=== PATIENT | male | born 1960 | race Caucasian/White ===

== ENCOUNTER 2019-08-08 07:59 | Outpatient (CLI) | payer BC, SELFPAY ==
--- NOTE | ~2019-08-08 | US_ITS ---
EXAMINATION: US right upper quadrant DATE: 08/08/2019 08:39 INDICATION: Right upper quadrant pain TECHNIQUE: Multiple grayscale and Doppler ultrasound images of the abdomen were obtained. COMPARISON: None available FINDINGS: Bowel gas obscures visualization of the pancreas. The visualized portions of the pancreas a re unremarkable. The liver is normal with normal echogenicity and echotexture. No surface nodularity. Normal hepatopetal flow in the main portal vein. Stones are present in the nondistended gallbladder. There is no pericholecystic fluid or gallbladder wall thickening. The normal common bile duct measur es 6 mm. There was no sonographic Ann sign. IMPRESSION: 1. Cholelithiasis without additional findings of cholecystitis. Reviewed, dictated and finalized at location A.
== END 2019-08-08 08:00 | disposition home or self-care (01) ==
PROVIDERS: PCP Physician Assistant; Visit Provider Physician Assistant
DX: R10.11 Right upper quadrant pain (principal); K80.20 Calculus of gallbladder without cholecystitis without obstruction
CPT/HCPCS: 76705

== ENCOUNTER 2019-10-16 06:33 | Outpatient (CLI) | payer BC, SELFPAY ==
--- NOTE | ~2019-10-16 | NM_ITS ---
EXAMINATION: NM hepatobiliary w pharm DATE: 10/16/2019 08:19 INDICATION: Vomiting. COMPARISON: Ultrasound 08/08/2019 TECHNIQUE: 5.1 mCi Tc-99m mebrofenin (Choletec) was administered intravenously. Scintigraphic images of the abdomen were obtained for one hour. Then, 2 mcg sincalide (Kinevac) IV was administered, and imaging was continued for 30 minutes. FINDINGS: There is normal clearance of radiotracer from the blood pool. There is homogeneous tracer u ptake by the liver. Activity progresses to the bowel and gallbladder. Gallbladder ejection fraction (GBEF) was 38%. Note that most patients with gallbladder dysfunction have GBEF < 35%, which overlaps with the broad normal range of 10-90%. IMPRESSION: 1. Normal hepatobiliary scintigraphy. Reviewed, dictated and finalized at location B.
== END 2019-10-16 06:34 | disposition home or self-care (01) ==
LOC: ANHIMG 06:34
PROVIDERS: PCP Family Medicine; Visit Provider Physician Assistant
DX: R10.11 Right upper quadrant pain (principal); R11.10 Vomiting, unspecified
CPT/HCPCS: 78227; A9537; J2805

== ENCOUNTER 2020-02-08 01:41 | Outpatient (CLI) | payer BC, SELFPAY ==
[2020-02-08 18:59] LABS: SARS-CoV-2 RNA PCR Negative
== END 2020-02-08 01:42 | disposition home or self-care (01) ==
LOC: ANHCOVIDDT 01:41
PROVIDERS: Visit Provider Internal Medicine Gastroenterology
DX: Z01.818 Encounter for other preprocedural examination (principal); Z20.828 Contact with and (suspected) exposure to other viral communicable diseases
CPT/HCPCS: 87635; C9803; U0003

== ENCOUNTER → 2020-02-12 14:10 | Day surgery (SDC) | payer BC, SELFPAY ==
[2020-02-05 14:36] VITALS: BMI 29.6
[2020-02-12 06:17] VITALS: BP 128/85; PULSE 103; RESP 18; TEMP 36.4; O2SAT 100; BMI 29.2
[2020-02-12] MEDS: LACTATED RINGERS 1,000 ML 150 ML IV CONT (06:34)
--- NOTE | 2020-02-12 07:18 | WPDANESEPPF ---
Anes - Initial Pre Proc Eval Procedure: Operation Date: 02/12/20 07:30 Proposed Procedures p Esophagogastroduodenoscopy&Screen Colon - Apolinar Hines MD Date/Time: 02/12/20 07:18 Surgeon: Apolinar Hines MD Pre Op Diagnosis: Rivera's Esophagus,Neoplasm Screening Patient Data Age: 59 Gender: M Height: 6 ft 1 in Weight: 100.5 kg Last Vital Signs Temp 97.5 F L 02/12/20 06:17 Pulse 103 H 02/12/20 06:17 Resp 18 02/12/20 06:17 BP 128/85 02/12/20 06:17 Pulse Ox 100 02/12/20 06:17 Allergies Allergy/AdvReac Type Severity Reaction Status Date / Time sildenafil Allergy Intermediate Unknown Verified 02/12/20 06:16 tadalafil Allergy Intermediate Unknown Verified 02/12/20 06:16 vardenafil Allergy Intermediate Unknown Verified 02/12/20 06:16 azithromycin Allergy Unknown Hallucinati Verified 02/12/20 06:16 ng Home Medications Medication Instructions Recorded Confirmed Type aspirin 81 mg tablet,delayed 81 mg PO DAILY 01/07/19 02/05/20 History release pantoprazole 40 mg tablet,delayed 40 mg PO QAM 01/07/19 02/05/20 History release apixaban 5 mg tablet 5 mg PO BID #180 tablet 06/24/19 02/05/20 Rx gabapentin 300 mg capsule 300 mg PO BID #180 cap 06/24/19 02/05/20 Rx metoprolol succinate 100 mg 100 mg PO DAILY #90 tablet 07/19/19 02/05/20 Rx tablet,extended release 24 hr triamcinolone acetonide 0.5 % 1 applic TOPICAL BID #30 gm 08/08/19 02/05/20 Rx topical ointment alprazolam 0.25 mg tablet See Rx Instructions PO BID PRN #30 12/13/19 02/05/20 Rx tablet sodium,potassium,mag sulfates 17.5 354 ml PO .COMPLEX #354 ml 01/03/20 02/05/20 Rx gram-3.13 gram-1.6 gram oral soln amlodipine 5 mg PO DAILY 02/05/20 02/05/20 History lisinopril 40 mg PO DAILY 02/05/20 02/05/20 History Patient hx anesthesia problems: none Family hx anesthesia problems: none PMFSH Past Medical History Medical History Rivera esophagus BMI 29.0-29.9,adult Cholelithiasis Chronic acquired lymphedema Chronic anticoagulation Chronic anxiety Chronic GERD Colon cancer screening Constipation Crepitus of joint of left knee Dyshidrotic eczema Essential (primary) hypertension History of deep venous thrombosis (DVT) of distal vein of right lower extremity Insomnia Onychomycosis of right great toe Personal history of atrial fibrillation Postprandial RUQ pain Prostate cancer screening Renal insufficiency, mild RUQ pain Skin lesion of back Skin tag Sleep apnea Vomiting Surgical History Surgical History (Updated 10/30/19 @ 14:51 by Mireya Noonan CMA) History of cardiac radiofrequency ablation History of mitral valve repair History of tonsillectomy History of vasectomy Family History Family History (Updated 10/30/19 @ 14:52 by Mireya Noonan CMA) Mother , age 82 Cerebrovascular accident Family history of heart disease in male family member before age 55 Father , age 82 Family history of heart disease in male family member before age 55 Sibling Family history of heart disease in male family member before age 55 Social History Social History (Updated 10/30/19 @ 14:53 by Mireya Noonan CMA) Smoking packs per day: 1 Smoking cigarettes per day: 20.0 Years smoked: 30 Smoking pack-years: 30.00 Smoking status: Former smoker Tobacco type: cigarettes Smoking end date: 02/20/14 Alcohol intake: never Substance use: never Substance use type: does not use Living arrangements: with family Additional occupation/education comments: Security Gender identity (if verbalized by the patient): Male Spiritual care concerns: No Agree to blood products: Yes Anes - Eval Final PreProcedure Day of Procedure 02/12/20 07:18 Patient weight: overweight Heart: regular rate and rhythm Lungs: clear to auscultation Airway: Mallampati scale Last oral intake: >/= 8 hour
--- NOTE | 2020-02-12 07:39 | PM.HPGS ---
History of Present Illness History of Present Illness Consent: Risks, benefits, and alternatives have been discussed and questions answered. Patient agrees to proceed with procedure. Chief complaint: Rivera's Esophagus,Neoplasm Screening Narrative: Emmie Treadwell is a 59 year old male with epigastric pain, recent GB removed. Also h/o Rivera's and colon polyps Review of Systems Constitutional: Constitutional: Denies headache(s) and Denies weakness Eyes: Eyes: Denies blurry vision ENT: Reports Normal hearing present, Denies headache(s) and Denies neck pain Cardiovascular: Cardiovascular: Denies chest pain and Denies dyspnea Respiratory: Respiratory: Denies dyspnea Gastrointestinal: Gastrointestinal: Reports no additional gastrointestinal complaints Genitourinary: Genitourinary: Denies dysuria Musculoskeletal: Musculoskeletal: Denies neck pain Integumentary/Breasts: Skin/Breast: Denies dry skin Neurologic: Reports Normal hearing present, Denies headache(s) and Denies weakness Psychiatric: Psychiatric: Denies anxiety Endocrine: Endocrine: Denies change in body appearance Hematologic/Lymphatic: Hematologic/Lymphatic: Denies easy bleeding Allergic/Immunologic: Allergic/Immunologic: Denies urticaria PMFSH Past Medical History Medical History Rivera esophagus BMI 29.0-29.9,adult Cholelithiasis Chronic acquired lymphedema Chronic anticoagulation Chronic anxiety Chronic GERD Colon cancer screening Constipation Crepitus of joint of left knee Dyshidrotic eczema Essential (primary) hypertension History of deep venous thrombosis (DVT) of distal vein of right lower extremity Insomnia Onychomycosis of right great toe Personal history of atrial fibrillation Postprandial RUQ pain Prostate cancer screening Renal insufficiency, mild RUQ pain Skin lesion of back Skin tag Sleep apnea Vomiting Surgical History Surgical History (Updated 10/30/19 @ 14:51 by Mireya Noonan CMA) History of cardiac radiofrequency ablation History of mitral valve repair History of tonsillectomy History of vasectomy Family History Family History (Updated 10/30/19 @ 14:52 by Mireya Noonan CMA) Mother , age 82 Cerebrovascular accident Family history of heart disease in male family member before age 55 Father , age 82 Family history of heart disease in male family member before age 55 Sibling Family history of heart disease in male family member before age 55 Social History Social History (Updated 10/30/19 @ 14:[address] [facility]) Smoking packs per day: 1 Smoking cigarettes per day: 20.0 Years smoked: 30 Smoking pack-years: 30.00 Smoking status: Former smoker Tobacco type: cigarettes Smoking end date: 02/20/14 Alcohol intake: never Substance use: never Substance use type: does not use Living arrangements: with family Additional occupation/education comments: Security Gender identity (if verbalized by the patient): Male Spiritual care concerns: No Agree to blood products: Yes Meds Home Medications and Allergies Home Medications Medication Instructions Recorded Confirmed Type aspirin 81 mg tablet,delayed 81 mg PO DAILY 01/07/19 02/05/20 History release pantoprazole 40 mg tablet,delayed 40 mg PO QAM 01/07/19 02/05/20 History release apixaban 5 mg tablet 5 mg PO BID #180 tablet 06/24/19 02/05/20 Rx gabapentin 300 mg capsule 300 mg PO BID #180 cap 06/24/19 02/05/20 Rx metoprolol succinate 100 mg 100 mg PO DAILY #90 tablet 07/19/19 02/05/20 Rx tablet,extended release 24 hr triamcinolone acetonide 0.5 % 1 applic TOPICAL BID #30 gm 08/08/19 02/05/20 Rx topical ointment alprazolam 0.25 mg tablet See Rx Instructions PO BID PRN #30 12/13/19 02/05/20 Rx tablet sodium,potassium,mag sulfates 17.5 354 ml PO .COMPLEX #354 ml 01/03/20 02/05/20 Rx gram-3.13 gram-1.6 gram oral s
[2020-02-12] MEDS: BENZOCAINE (*SP) 60 ML SPRAY CAN (HURRICAINE) 1 SPRAY MUCOUS MEM (07:56)
[2020-02-12 08:10] VITALS: BP 95/65; PULSE 77; RESP 12; O2SAT 96
[2020-02-12 08:20] VITALS: BP 98/68; PULSE 78; RESP 20; O2SAT 97
[2020-02-12 08:30] VITALS: BP 102/66; PULSE 68; RESP 17; O2SAT 96
== END ==
PROVIDERS: Visit Provider Internal Medicine Gastroenterology
PROC: 0DJ08ZZ Inspection of Upper Intestinal Tract, Via Natural or Artificial Opening Endoscopic (ICD-10-PCS; CPT 43235; principal; 2020-02-12 07:30)
DX: Z12.11 Encounter for screening for malignant neoplasm of colon (principal); K22.70 Barrett's esophagus without dysplasia; K63.5 Polyp of colon; K64.8 Other hemorrhoids; K21.00 Gastro-esophageal reflux disease with esophagitis, without bleeding; Z79.82 Long term (current) use of aspirin; K80.20 Calculus of gallbladder without cholecystitis without obstruction; I89.0 Lymphedema, not elsewhere classified; F41.9 Anxiety disorder, unspecified; Z79.01 Long term (current) use of anticoagulants; M23.8X2 Other internal derangements of left knee; L30.9 Dermatitis, unspecified; Z86.718 Personal history of other venous thrombosis and embolism; G47.00 Insomnia, unspecified; N28.9 Disorder of kidney and ureter, unspecified; G47.30 Sleep apnea, unspecified; Z87.891 Personal history of nicotine dependence
CPT/HCPCS: 43239; 45380; 88305; 88313; J2001; J2704; J7120

== ENCOUNTER 2020-08-09 08:22 | Emergency (ER) | payer BC, SELFPAY ==
[2020-08-09 08:32] VITALS: BP 122/84; PULSE 68; RESP 16; TEMP 36.1; O2SAT 99
--- NOTE | 2020-08-09 08:33 | ED.GENADULT ---
HPI - General Adult General Chief complaint: Upper Respiratory Infection Stated complaint: sore throat Time Seen by Provider: 08/09/20 08:33 Source: patient and RN notes reviewed Mode of arrival: ambulatory Limitations: no limitations History of Present Illness HPI narrative: 60-year-old male presents with complaints of sore and itchy throat and headache (not the worst of his life) for the past 3 days. Emmie reports being exposed to Strep by a family member over the past 48 hours who was diagnosed with Strep on 08/08/2020) No treatment. No high fevers, drooling, neck or throat swelling. Pain is bilateral. Hurts to swallow. Exacerbation factors consist of eating and drinking. No rhinorrhea. Nasal congestion. No voice change. No nausea, vomiting, or abdominal pain. Tolerating liquids well. Denies chills, dyspnea, difficulty swallowing, jaw pain, dental pain, facial pain, foreign body sensation, and rash. Remains active. The patient reports he has not been diagnosed with COVID-19. The patient reports he is not waiting for the results of a COVID-19 lab test. The patient reports he does not have chills, weakness, or fatigue. The patient reports he does not have a new or worsening cough or shortness of breath. Denies chest pain. The patient reports he does not have any loss of taste or smell and diarrhea. Denies recent traveling. Denies concerns for COVID-19 or exposures. At this time, the patient is not suspected of having COVID-19. Some parts of this dictation were generated by voice recognition software and may contain typographical and/or grammatical inaccuracies. Related Data Home Medications Medication Instructions Recorded Confirmed aspirin 81 mg tablet,delayed 81 mg PO DAILY 01/07/19 08/09/20 release amlodipine 5 mg PO DAILY 02/05/20 08/09/20 lisinopril 40 mg PO DAILY 02/05/20 08/09/20 Allergies Allergy/AdvReac Type Severity Reaction Status Date / Time sildenafil Allergy Intermediate Unknown Verified 08/09/20 08:38 tadalafil Allergy Intermediate Unknown Verified 08/09/20 08:38 vardenafil Allergy Intermediate Unknown Verified 08/09/20 08:38 azithromycin Allergy Unknown Hallucinati Verified 08/09/20 08:38 ng Review of Systems Review of Systems: Narrative: CONSTITUTIONAL: Denies fever, chills, sweats. EYES: Denies visual changes, redness, discharge. ENT: Denies rhinorrhea, otalgia. Complains of sore throat, congestion. CARDIOVASCULAR: Denies chest pain, palpitations, edema. RESPIRATORY: Denies dyspnea, wheezing, cough. GASTROINTESTINAL: Denies abdominal pain, nausea, vomiting, diarrhea. SKIN: Denies rash or itching. MUSCULOSKELETAL: Denies acute back pain, joint pain, or myalgia. NEUROLOGIC: Denies numbness or focal weakness. Complaints of VINSON. PSYCHIATRIC: Denies anxiety or depression. All systems reviewed & are unremarkable except as noted in HPI and below. [facility] Past Medical History Medical History Abdominal wall pain Rivera esophagus BMI 29.0-29.9,adult Cholelithiasis Chronic acquired lymphedema Chronic anticoagulation Chronic anxiety Chronic GERD Colon cancer screening Constipation Crepitus of joint of left knee Dyshidrotic eczema Essential (primary) hypertension History of deep venous thrombosis (DVT) of distal vein of right lower extremity Insomnia Onychomycosis of right great toe Personal history of atrial fibrillation Postprandial RUQ pain Prostate cancer screening Renal insufficiency, mild RUQ pain Skin lesion of back Skin tag Sleep apnea Vomiting Surgical History Surgical History History of cardiac radiofrequency ablation History of mitral valve repair History of tonsillectomy History of vasectomy Family History Family History Mother , age 82 Cerebrovascular accident Family history o
== END 2020-08-09 09:06 | disposition home or self-care (01) ==
PROVIDERS: Emergency Provider Nurse Practitioner Family
DX: J02.9 Acute pharyngitis, unspecified (principal); Z87.891 Personal history of nicotine dependence; K22.70 Barrett's esophagus without dysplasia; Z79.82 Long term (current) use of aspirin; K21.9 Gastro-esophageal reflux disease without esophagitis; I10 Essential (primary) hypertension; Z86.718 Personal history of other venous thrombosis and embolism; I48.91 Unspecified atrial fibrillation
CPT/HCPCS: 87081; 87880; 99213; G0463

== ENCOUNTER 2021-08-11 14:08 | Emergency (ER) | payer OTHER, SELFPAY ==
[2021-08-11 14:18] VITALS: BP 127/91; PULSE 62; RESP 16; TEMP 37.4; O2SAT 99
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
== END 2021-08-11 14:47 | disposition home or self-care (01) ==
PROVIDERS: Emergency Provider Nurse Practitioner Family
DX: L03.114 Cellulitis of left upper limb (principal); Z87.891 Personal history of nicotine dependence; K22.70 Barrett's esophagus without dysplasia; K21.9 Gastro-esophageal reflux disease without esophagitis; I10 Essential (primary) hypertension; Z86.718 Personal history of other venous thrombosis and embolism; G47.30 Sleep apnea, unspecified; F41.9 Anxiety disorder, unspecified; Z79.82 Long term (current) use of aspirin; Z98.52 Vasectomy status
CPT/HCPCS: 99213; G0463

== ENCOUNTER 2022-01-29 09:34 | Emergency (ER) | payer OTHER, SELFPAY ==
--- NOTE | 2022-01-29 10:31 | ED.URI ---
HPI - URI/Sore Throat General Chief Complaint: Upper Respiratory Infection Stated Complaint: cough,runny nose,wants covid test Time Seen by Provider: 01/29/22 11:30 Source: patient and RN notes reviewed Mode of arrival: ambulatory Limitations: no limitations History of Present Illness HPI Narrative: 61-year-old male presents with concern for cough, runny nose. He reports his wants him be tested for COVID. He reports exposure to influenza. He denies taking any [id number] medications. Reports temperature up to 101. He declines an influenza test MD elicited complaint: cough Related Data Home Medications Medication Instructions Recorded Confirmed aspirin 81 mg tablet,delayed 81 mg PO DAILY 01/07/19 08/11/21 release (Enteric Coated Aspirin) lisinopril 40 mg tablet 40 mg PO DAILY 02/05/20 08/11/21 alprazolam 0.25 mg tablet 0.25 mg DIRECTED 08/11/21 08/11/21 apixaban 5 mg tablet (Eliquis) 5 mg DIRECTED 08/11/21 08/11/21 atorvastatin 20 mg tablet 20 mg DIRECTED 08/11/21 08/11/21 Allergies Allergy/AdvReac Type Severity Reaction Status Date / Time sildenafil Allergy Intermediate Unknown Verified 08/09/20 08:38 tadalafil Allergy Intermediate Unknown Verified 08/09/20 08:38 vardenafil Allergy Intermediate Unknown Verified 08/09/20 08:38 azithromycin Allergy Unknown Hallucinati Verified 08/09/20 08:38 ng Review of Systems Review of Systems: CONSTITUTIONAL: Reports malaise, fever. EYES: Denies visual changes, redness, or discharge. ENT: Reports rhinorrhea, congestion. Sinus sinus pain, otalgia and sore throat. CARDIOVASCULAR: Denies chest pain, palpitations, or edema. RESPIRATORY: Reports cough. Denies dyspnea. GASTROINTESTINAL: Denies abdominal pain, nausea, vomiting, diarrhea SKIN: Denies rash or itching. MUSCULOSKELETAL: Denies myalgia. NEUROLOGIC: Denies headache. All systems reviewed & are unremarkable except as noted in HPI and below PMFSH Past Medical History Medical History Abdominal wall pain Rivera esophagus BMI 29.0-29.9,adult Cholelithiasis Chronic acquired lymphedema Chronic anticoagulation Chronic anxiety Chronic GERD Colon cancer screening Constipation Crepitus of joint of left knee Dyshidrotic eczema Essential (primary) hypertension History of deep venous thrombosis (DVT) of distal vein of right lower extremity Insomnia Onychomycosis of right great toe Personal history of atrial fibrillation Postprandial RUQ pain Prostate cancer screening Renal insufficiency, mild RUQ pain Skin lesion of back Skin tag Sleep apnea Vomiting Surgical History Surgical History History of cardiac radiofrequency ablation History of mitral valve repair History of tonsillectomy History of vasectomy Family History Family History Mother , age 82 Cerebrovascular accident Family history of heart disease in male family member before age 55 Father , age 82 Family history of heart disease in male family member before age 55 Sibling Family history of heart disease in male family member before age 55 Social History Social History Smoking packs per day: 1 Smoking cigarettes per day: 20.0 Years smoked: 30 Smoking pack-years: 30.00 Smoking status: Former smoker Tobacco type: cigarettes Smoking end date: 02/20/14 Alcohol intake: never Substance use: never Substance use type: does not use Additional occupation/education comments: Security Gender identity (if verbalized by the patient): Male Sexual Orientation (if Verbalized by the Patient): Straight or Heterosexual Spiritual care concerns: No Agree to blood products: Yes Comments At time of signature, agree with nursing past medical, surgical, social and family histor
[2022-01-29 10:48] VITALS: BP 121/86; PULSE 71; RESP 20; TEMP 36.2; O2SAT 99
== END 2022-01-29 11:40 | disposition home or self-care (01) ==
PROVIDERS: Emergency Provider Nurse Practitioner
DX: J11.1 Influenza due to unidentified influenza virus with other respiratory manifestations (principal); Z20.822 Contact with and (suspected) exposure to COVID-19; Z87.891 Personal history of nicotine dependence; K22.70 Barrett's esophagus without dysplasia; K21.9 Gastro-esophageal reflux disease without esophagitis; I10 Essential (primary) hypertension; Z86.718 Personal history of other venous thrombosis and embolism; Z98.52 Vasectomy status; F41.9 Anxiety disorder, unspecified; Z79.01 Long term (current) use of anticoagulants; Z79.82 Long term (current) use of aspirin
CPT/HCPCS: 87426; 87804; 99213; C9803; G0463

== ENCOUNTER 2022-03-19 10:39 | Emergency (ER) | payer OTHER, SELFPAY ==
[2022-03-19 11:16] VITALS: BP 101/73; PULSE 68; RESP 16; TEMP 36.3; O2SAT 98
--- NOTE | 2022-03-19 11:44 | ED.EAR ---
HPI - Ear Problem General Chief complaint: Ear Stated complaint: lt ear inf Time Seen by Provider: 03/19/22 11:44 Source: patient, RN notes reviewed and old records reviewed Mode of arrival: ambulatory Limitations: no limitations History of Present Illness HPI Narrative: 61-year-old male presents to the [facility] with complaints of left ear discomfort. Used a Q-tip to try to get the fluid out of his ear. Reports muffled hearing. Denies any sinus congestion. Denies chest pain or abdominal pain. Denies any headache or dizziness Related Data Home Medications Medication Instructions Recorded Confirmed aspirin 81 mg tablet,delayed 81 mg PO DAILY 01/07/19 03/19/22 release (Enteric Coated Aspirin) alprazolam 0.25 mg tablet 0.25 mg DIRECTED 08/11/21 03/19/22 atorvastatin 20 mg tablet 20 mg DIRECTED 08/11/21 03/19/22 Allergies Allergy/AdvReac Type Severity Reaction Status Date / Time sildenafil Allergy Intermediate Unknown Verified 03/19/22 11:32 tadalafil Allergy Intermediate Unknown Verified 03/19/22 11:32 vardenafil Allergy Intermediate Unknown Verified 03/19/22 11:32 azithromycin Allergy Unknown Hallucinati Verified 03/19/22 11:32 ng Review of Systems Review of Systems: All systems reviewed & are unremarkable except as noted in HPI and below Constitutional: Constitutional: Reports no additional constitutional complaints Eyes: Eyes: Reports no additional eye complaints ENT: Reports as per HPI (Left ear pain) Cardiovascular: Cardiovascular: Reports no additional cardiovascular complaints, Denies chest pain and Denies dyspnea Respiratory: Respiratory: Reports no additional respiratory complaints, Denies chest congestion, Denies cough and Denies dyspnea Gastrointestinal: Gastrointestinal: Reports no additional gastrointestinal complaints, Denies abdominal pain, Denies nausea and Denies vomiting Musculoskeletal: Musculoskeletal: Reports no additional musculoskeletal complaints Integumentary/Breasts: Skin/Breast: Reports system reviewed and no additional complaints, except as docu Neurologic: Reports system reviewed and no additional complaints, except as documented Psychiatric: Psychiatric: Reports no additional psychiatric complaints Allergic/Immunologic: Allergic/Immunologic: Reports no additional allergic/immunologic complaints PMFSH Past Medical History Medical History Abdominal wall pain Rivera esophagus BMI 29.0-29.9,adult Cholelithiasis Chronic acquired lymphedema Chronic anticoagulation Chronic anxiety Chronic GERD Colon cancer screening Constipation Crepitus of joint of left knee Dyshidrotic eczema Essential (primary) hypertension History of deep venous thrombosis (DVT) of distal vein of right lower extremity Insomnia Onychomycosis of right great toe Personal history of atrial fibrillation Postprandial RUQ pain Prostate cancer screening Renal insufficiency, mild RUQ pain Skin lesion of back Skin tag Sleep apnea Vomiting Surgical History Surgical History History of cardiac radiofrequency ablation History of mitral valve repair History of tonsillectomy History of vasectomy Family History Family History Mother , age 82 Cerebrovascular accident Family history of heart disease in male family member before age 55 Father , age 82 Family history of heart disease in male family member before age 55 Sibling Family history of heart disease in male family member before age 55 Social History Social History Smoking packs per day: 1 Smoking cigarettes per day: 20.0 Years smoked: 30 Smoking pack-years: 30.00 Smoking status: Former smoker Tobacco type: cigarettes Smoking end date: 02/20/14 Alcohol intake: never Substance use:
== END 2022-03-19 11:57 | disposition home or self-care (01) ==
PROVIDERS: Emergency Provider Nurse Practitioner
DX: S00.412A Abrasion of left ear, initial encounter (principal); L08.9 Local infection of the skin and subcutaneous tissue, unspecified; X58.XXXA Exposure to other specified factors, initial encounter; H65.03 Acute serous otitis media, bilateral; Z87.891 Personal history of nicotine dependence; K22.70 Barrett's esophagus without dysplasia; K21.9 Gastro-esophageal reflux disease without esophagitis; I10 Essential (primary) hypertension; Z86.718 Personal history of other venous thrombosis and embolism; I48.91 Unspecified atrial fibrillation; Z79.82 Long term (current) use of aspirin
CPT/HCPCS: 99213; G0463

== ENCOUNTER 2022-06-05 10:21 | Emergency (ER) | payer OTHER, SELFPAY ==
--- NOTE | ~2022-06-05 | US_ITS ---
EXAMINATION: US venous doppler [facility] DATE: 06/05/2022 12:36 INDICATION: Left lower limb pain TECHNIQUE: Connor scale images without and with compression and Doppler images of the left lower extrem ity veins were obtained. COMPARISON: None FINDINGS: The left common femoral vein, profunda femoral vein, femoral vein, popliteal vein, peroneal trunk, posterior tibial veins, and greater saphenous vein are patent. There is a subcutaneous hemato ma in the area of clinical concern. IMPRESSION: 1. Patent left lower extremity veins. No evidence of deep venous thrombosis. Reviewed, dictated and finalized at location A.
--- NOTE | ~2022-06-05 | XR_ITS ---
EXAMINATION: XR tibia fibula LT 2V INDICATION: Left leg swelling TECHNIQUE: Two views of the left tibia and fibula are obtained on three radiographs. COMPARISON: None available FINDINGS: There is anterior soft tissue swelling of the lower leg near the junction of the middle and distal thirds of the tibia and fibula. No underlying osseous abnormality is identified. There is mil d osteoarthritis of the knee. IMPRESSION: 1. Soft tissue swelling without acute osseous abnormality. Reviewed, dictated and finalized at location A.
[2022-06-05 11:10] VITALS: BP 122/87; PULSE 68; RESP 18; TEMP 36.5; O2SAT 97
--- NOTE | 2022-06-05 12:16 | ED.GENADULT ---
HPI - General Adult General Chief complaint: Extremity Injury, Lower Stated complaint: left leg injury and swelling Time Seen by Provider: 06/05/22 11:28 Source: patient Mode of arrival: ambulatory Limitations: no limitations History of Present Illness HPI narrative: This is a 61-year-old male who presents to the ED with chief complaint of left leg injury and swelling x3 days. Patient states that he dropped a lawnmower blade on his left ford a week ago. Denies pain. He notices a lump near the wound where he was hit. He is concerned that he may have had a blood clot, describes swelling that appeared 2 days ago but has since resolved. Denies trouble with weightbearing. Denies calf pain. Denies chest pain, shortness of breath, fevers. Related Data Home Medications Medication Instructions Recorded Confirmed aspirin 81 mg tablet,delayed 81 mg PO DAILY 01/07/19 05/31/22 release (Enteric Coated Aspirin) atorvastatin 20 mg tablet 20 mg DIRECTED 08/11/21 05/31/22 alprazolam 0.25 mg tablet 1 mg PO DIRECTED PRN 05/31/22 05/31/22 Allergies Allergy/AdvReac Type Severity Reaction Status Date / Time sildenafil Allergy Intermediate Unknown Verified 06/05/22 10:22 tadalafil Allergy Intermediate Unknown Verified 06/05/22 10:22 vardenafil Allergy Intermediate Unknown Verified 06/05/22 10:22 azithromycin Allergy Unknown Hallucinati Verified 06/05/22 10:22 ng Review of Systems Review of Systems: CONSTITUTIONAL: Denies fever, chills, or sweats. EYES: Denies visual changes, redness, or discharge. ENT: Denies rhinorrhea, congestion, sore throat, or otalgia. CARDIOVASCULAR: Denies chest pain, palpitations, or edema. RESPIRATORY: Denies cough or dyspnea. GASTROINTESTINAL: Denies abdominal pain, nausea, vomiting, or diarrhea. GENITOURINARY: Denies dysuria or hematuria. SKIN: See HPI MUSCULOSKELETAL: See HPI NEUROLOGIC: Denies headache, numbness, dizziness, or weakness. PSYCHIATRIC: Denies anxiety or depression. [facility] Past Medical History Medical History Abdominal wall pain Rivera esophagus BMI 29.0-29.9,adult Cholelithiasis Chronic acquired lymphedema Chronic anticoagulation Chronic anxiety Chronic GERD Colon cancer screening Constipation Crepitus of joint of left knee Dyshidrotic eczema Essential (primary) hypertension History of deep venous thrombosis (DVT) of distal vein of right lower extremity Insomnia Onychomycosis of right great toe Personal history of atrial fibrillation Postprandial RUQ pain Prostate cancer screening Renal insufficiency, mild RUQ pain Skin lesion of back Skin tag Vomiting Surgical History Surgical History History of cardiac radiofrequency ablation History of mitral valve repair History of tonsillectomy History of vasectomy Family History Family History Mother , age 82 Cerebrovascular accident Family history of heart disease in male family member before age 55 Father , age 82 Family history of heart disease in male family member before age 55 Sibling Family history of heart disease in male family member before age 55 Social History Social History Smoking packs per day: 1 Smoking cigarettes per day: 20.0 Years smoked: 30 Smoking pack-years: 30.00 Smoking status: Former smoker Tobacco type: cigarettes Smoking end date: 02/20/14 Alcohol intake: never Substance use: never Substance use type: does not use Living arrangements: with family Occupation/Education: occupation Additional occupation/education comments: Security Gender identity (if verbalized by the patient): Male Sexual Orientation (if Verbalized by the Patient): Straight or Heterosexual Spiritual care concerns: No Agree to blood products:
== END 2022-06-05 13:27 | disposition home or self-care (01) ==
PROVIDERS: Emergency Provider Physician Assistant; PCP Family Medicine
DX: S80.12XA Contusion of left lower leg, initial encounter (principal); F41.9 Anxiety disorder, unspecified; K21.9 Gastro-esophageal reflux disease without esophagitis; I10 Essential (primary) hypertension; W20.8XXA Other cause of strike by thrown, projected or falling object, initial encounter
CPT/HCPCS: 73590; 93971; 99284

== ENCOUNTER 2022-07-27 14:05 | Outpatient (CLI) | payer OTHER, SELFPAY ==
--- NOTE | ~2022-07-27 | CT_ITS ---
EXAMINATION: CT diagnostic chest wo con DATE: 07/27/2022 14:41 INDICATION: Chronic obstructive pulmonary disease, unspecified TECHNIQUE: Computed tomography (CT) of the chest was performed without intravenous contrast. The dose -length product (DLP) was 210.26 mGy-cm. Automated exposure control and iterative reconstruction tech [employer] were employed. COMPARISON: None FINDINGS: There is mild emphysema. There is a 3 mm nodule of the right lower lobe on image 75. There is a 5 mm nodule of the left lower lobe on image 58. There is mild dependent atelectasis. No pleural effusion or pneumothorax. The heart size is normal. There are changes of mitral valve repair. Calcifi ed coronary artery atherosclerosis is noted. The liver is diffusely low in attenuation when compared with the spleen, consistent with hepatic steatosis. The gallbladder is surgically absent. There is mi ld thoracic spondylosis. IMPRESSION: 1. Pulmonary nodules measuring up to 5 mm, possibly old granulomatous disease. Consider follow-up CT in 12 months. Reviewed, dictated and finalized at location F.
--- NOTE | 2022-07-27 16:12 | WPDSIXMINUTE ---
Six Minute Walk Procedure Procedure Performed Pulmonary Stress Test (6 min walk) Six Minute Walk Six Minute Walk: This is a 6 minute walk test. The test was performed and interpreted in accordance with the 2014 ERS/ATS task force guidelines. Findings: The patient's resting room air oxygen saturation measured by pulse oximetry was 96% and heart rate was 82 bpm. Patient ambulated for 518 meters and oxygen saturation remained 96 to 98%. Heart rate at the end of the study was 91 bpm. The patient did not qualify for supplemental oxygen at rest or with ambulation. There are no prior studies for comparison.
--- NOTE | 2022-07-27 16:13 | WPDPFTINT ---
PFT Procedure Performed PFT Procedure Performed Spirometry with Pre/Post Bronchodilator Plethysmography (Lung Vol) Diffusing Cap (DLCO) Flow Vol Loop PFT Interpretation This is a pulmonary function test with pre and post-bronchodilator spirometry, plethysmography and diffusing capacity. The test was performed and results interpreted in accordance with the 2019 and 2005 ATS/ERS Task Force guidelines respectively using the Global Lung Function Initiative-2012 reference equations. Patient demonstrated good effort and cooperation. Reproducibility criteria were met. The quality of the pre bronchodilator spirometry maneuver was Grade A and post bronchodilator spirometry maneuver was Grade A. Findings: Spirometry: The contour the inspiratory and expiratory flow tracing are normal. The pre bronchodilator FVC is 4.47 L, 94% predicted. The pre bronchodilator FEV1 is 3.45 L, 95% predicted. The pre bronchodilator FEV1: FVC ratio is 77%. the post bronchodilator FVC is 4.55 L, representing a 2% increase. The post bronchodilator FEV1 is 3.63 L, representing a 5% increase. The post bronchodilator FEV1: FVC ratio is 80%. Plethysmography: The total lung capacity is 5.93 L, 83% predicted. The functional residual capacity is 2.51 L, 67% predicted. The residual volume is 1.46 L, 63% predicted. Diffusing capacity: The diffusing capacity unadjusted for hemoglobin and carboxyhemoglobin is 20.2, 71% predicted. The diffusing capacity adjusted for alveolar volume is 3.84, 92% predicted. Impression: The spirometry is normal without evidence of an obstructive abnormality. There is no significant improvement after inhaling a single dose of albuterol. The total lung capacity and functional residual capacity are normal with a decreased residual volume. This is an abnormal but nonspecific lung volume pattern. The diffusing capacity unadjusted for hemoglobin and carboxyhemoglobin is mildly decreased and normalizes when adjusted for alveolar volume. There are no prior studies for comparison
== END 2022-07-27 14:06 | disposition home or self-care (01) ==
PROVIDERS: PCP Family Medicine; Visit Provider Physician Assistant
DX: J44.9 Chronic obstructive pulmonary disease, unspecified (principal); R91.8 Other nonspecific abnormal finding of lung field
CPT/HCPCS: 71250; 94060; 94618; 94726; 94729

== ENCOUNTER 2023-04-18 05:02 | Day surgery (SDC) | payer OTHER, SELFPAY ==
[2023-03-24 14:25] VITALS: BMI 29.6
--- NOTE | 2023-04-14 13:58 | SUR.PREOP ---
Patient called regarding upcoming procedure. Reviewed preop instructions, appointment times, and procedure prep.
[2023-04-18 07:05] VITALS: BP 124/82; PULSE 69; RESP 18; TEMP 36.4; O2SAT 96; BMI 30.4
[2023-04-18] MEDS: LACTATED RINGERS 1,000 ML 150 ML IV CONT (07:32)
--- NOTE | 2023-04-18 07:37 | WPDANESEPPF ---
Anes - Initial Pre Proc Eval Procedure: Operation Date: 04/18/23 08:00 Proposed Procedures p Esophagogastroduodenoscopy - Apolinar Hines MD Date/Time: 04/18/23 07:37 Surgeon: Apolinar Hines MD Pre Op Diagnosis: Rivera's esophagus,dysphagia,GERD Patient Data Age: 62 Gender: M Height: 1.85 m Weight: 104.5 kg Last Vital Signs Temp 36.4 C L 04/18/23 07:05 Pulse 69 04/18/23 07:05 Resp 18 04/18/23 07:05 BP 124/82 04/18/23 07:05 Pulse Ox 96 04/18/23 07:05 O2 Del Method Room Air 04/18/23 07:05 Allergies Allergy/AdvReac Type Severity Reaction Status Date / Time sildenafil Allergy Intermediate Unknown Verified 04/18/23 07:13 tadalafil Allergy Intermediate Unknown Verified 04/18/23 07:13 vardenafil Allergy Intermediate Unknown Verified 04/18/23 07:13 azithromycin Allergy Unknown Hallucinati Verified 04/18/23 07:13 ng Home Medications Medication Instructions Recorded Confirmed Type aspirin 81 mg tablet,delayed 81 mg PO DAILY 01/07/19 04/18/23 History release (Enteric Coated Aspirin) metoprolol succinate 100 mg 100 mg PO DAILY #90 tabs 07/19/19 04/18/23 Rx tablet,extended release 24 hr pantoprazole 40 mg tablet,delayed 40 mg PO BID 90 days #180 tabs 04/23/20 04/18/23 Rx release (Protonix) gabapentin 300 mg capsule 300 mg PO BID #180 caps 06/29/20 04/18/23 Rx alprazolam 0.25 mg tablet 1 mg PO DIRECTED PRN Anxiety 05/31/22 04/18/23 History diltiazem HCl 30 mg tablet 30 mg PO DAILY PRN other 03/24/23 04/18/23 History fluticasone propionate 50 2 spray intranasal DAILY 03/24/23 04/18/23 History mcg/actuation nasal spray,suspension tamsulosin 0.4 mg capsule 0.4 mg PO DAILY 03/24/23 04/18/23 History Patient hx anesthesia problems: none Family hx anesthesia problems: none Results Review: All pre-operative results and documents have been reviewed as part of the pre-operative evaluation. PMFSH Past Medical History Medical History Abdominal wall pain Rivera esophagus BMI 29.0-29.9,adult Cholelithiasis Chronic acquired lymphedema Chronic anticoagulation Chronic anxiety Chronic GERD Colon cancer screening Constipation Crepitus of joint of left knee Dyshidrotic eczema Dysphagia Essential (primary) hypertension GERD (gastroesophageal reflux disease) History of deep venous thrombosis (DVT) of distal vein of right lower extremity Insomnia Onychomycosis of right great toe Personal history of atrial fibrillation Postprandial RUQ pain Prostate cancer screening Renal insufficiency, mild RUQ pain Skin lesion of back Skin tag Vomiting Surgical History Surgical History History of cardiac radiofrequency ablation History of mitral valve repair History of tonsillectomy History of vasectomy Family History Family History Mother , age 82 Cerebrovascular accident Family history of heart disease in male family member before age 55 Father , age 82 Family history of heart disease in male family member before age 55 Sibling Family history of heart disease in male family member before age 55 Social History Social History Smoking packs per day: 1 Smoking cigarettes per day: 20.0 Years smoked: 30 Smoking pack-years: 30.00 Smoking status: Former smoker Tobacco type: cigarettes Smoking end date: 02/20/14 Alcohol intake: never Substance use: never Substance use type: does not use Living arrangements: with family Occupation/Education: occupation Additional occupation/education comments: Security Gender identity (if verbalized by the patient): Male Sexual Orientation (if Verbalized by the Patient): Straight or Heterosexual Spiritual care concerns: No Agree to blood products: Yes
--- NOTE | 2023-04-18 08:14 | PM.HPGS ---
History of Present Illness History of Present Illness Consent: Risks, benefits, and alternatives have been discussed and questions answered. Patient agrees to proceed with procedure. 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, last egd 2019 Review of Systems Constitutional: Constitutional: Denies headache(s) and Denies weakness Eyes: Eyes: Denies blurry vision ENT: Reports Normal hearing present, Denies headache(s) and Denies neck pain Cardiovascular: Cardiovascular: Denies chest pain and Denies dyspnea Respiratory: Respiratory: Denies dyspnea Gastrointestinal: Gastrointestinal: Reports no additional gastrointestinal complaints Genitourinary: Genitourinary: Denies dysuria Musculoskeletal: Musculoskeletal: Denies neck pain Integumentary/Breasts: Skin/Breast: Denies dry skin Neurologic: Reports Normal hearing present, Denies headache(s) and Denies weakness Psychiatric: Psychiatric: Denies anxiety Endocrine: Endocrine: Denies change in body appearance Hematologic/Lymphatic: Hematologic/Lymphatic: Denies easy bleeding Allergic/Immunologic: Allergic/Immunologic: Denies urticaria PMFSH Past Medical History Medical History Abdominal wall pain Jenkins esophagus BMI 29.0-29.9,adult Cholelithiasis Chronic acquired lymphedema Chronic anticoagulation Chronic anxiety Chronic GERD Colon cancer screening Constipation Crepitus of joint of left knee Dyshidrotic eczema Dysphagia Essential (primary) hypertension GERD (gastroesophageal reflux disease) History of deep venous thrombosis (DVT) of distal vein of right lower extremity Insomnia Onychomycosis of right great toe Personal history of atrial fibrillation Postprandial RUQ pain Prostate cancer screening Renal insufficiency, mild RUQ pain Skin lesion of back Skin tag Vomiting Surgical History Surgical History History of cardiac radiofrequency ablation History of mitral valve repair History of tonsillectomy History of vasectomy Family History Family History Mother , age 82 Cerebrovascular accident Family history of heart disease in male family member before age 55 Father , age 82 Family history of heart disease in male family member before age 55 Sibling Family history of heart disease in male family member before age 55 Social History Social History Smoking packs per day: 1 Smoking cigarettes per day: 20.0 Years smoked: 30 Smoking pack-years: 30.00 Smoking status: Former smoker Tobacco type: cigarettes Smoking end date: 02/20/14 Alcohol intake: never Substance use: never Substance use type: does not use Living arrangements: with family Occupation/Education: occupation Additional occupation/education comments: Security Gender identity (if verbalized by the patient): Male Sexual Orientation (if Verbalized by the Patient): Straight or Heterosexual Spiritual care concerns: No Agree to blood products: Yes Meds Home Medications and Allergies Home Medications Medication Instructions Recorded Confirmed Type aspirin 81 mg tablet,delayed 81 mg PO DAILY 01/07/19 04/18/23 History release (Enteric Coated Aspirin) metoprolol succinate 100 mg 100 mg PO DAILY #90 tabs 07/19/19 04/18/23 Rx tablet,extended release 24 hr pantoprazole 40 mg tablet,delayed 40 mg PO BID 90 days #180 tabs 04/23/20 04/18/23 Rx release (Protonix) gabapentin 300 mg capsule 300 mg PO BID #180 caps 06/29/20 04/18/23 Rx alprazolam 0.25 mg tablet 1 mg PO DIRECTED PRN Anxiety 05/31/22 04/18/23 History diltiazem HCl 30 mg tablet 30 mg PO DAILY PRN other 03/24/23 04/18/23 History fluticasone propio
[2023-04-18 08:29] VITALS: BP 109/77; PULSE 60; RESP 14; O2SAT 95
[2023-04-18 08:39] VITALS: BP 114/79; PULSE 58; RESP 18; O2SAT 97
[2023-04-18 08:49] VITALS: BP 113/81; PULSE 56; RESP 16; O2SAT 99
== END 2023-04-18 08:59 | disposition home or self-care (01) ==
PROVIDERS: PCP Family Medicine; Visit Provider Internal Medicine Gastroenterology
PROC: 0DJ08ZZ Inspection of Upper Intestinal Tract, Via Natural or Artificial Opening Endoscopic (ICD-10-PCS; CPT 43235; principal; 2023-04-18 08:00)
DX: K22.70 Barrett's esophagus without dysplasia (principal); K21.9 Gastro-esophageal reflux disease without esophagitis; R13.10 Dysphagia, unspecified; I10 Essential (primary) hypertension; Z86.718 Personal history of other venous thrombosis and embolism; Z87.891 Personal history of nicotine dependence
CPT/HCPCS: 43239; 88305; J2704; J7120

== ENCOUNTER 2023-07-27 10:42 | Emergency (ER) | payer OTHER, SELFPAY ==
--- NOTE | 2023-07-27 10:45 | ED.SKABFB ---
HPI - Skin/Abscess/Foreign Bdy General Chief complaint: Skin/Abscess/Foreign Body Stated complaint: tick on leg Time Seen by Provider: 07/27/23 10:44 Source: patient Mode of arrival: ambulatory Limitations: no limitations History of Present Illness HPI narrative: Patient is a 63-year-old male who presents with rash to bilateral groin for the last 2 weeks. Patient has been using gold Chong powder. Patient states he has gained some weight and has noticed more sweat in that area. Denies any drainage from rash. Related Data Home Medications Medication Instructions Recorded Confirmed aspirin 81 mg tablet,delayed 81 mg PO DAILY 01/07/19 07/27/23 release (Enteric Coated Aspirin) alprazolam 0.25 mg tablet 1 mg PO DIRECTED PRN Anxiety 05/31/22 07/27/23 diltiazem HCl 30 mg tablet 30 mg PO DAILY PRN other 03/24/23 07/27/23 fluticasone propionate 50 2 spray intranasal DAILY 03/24/23 07/27/23 mcg/actuation nasal spray,suspension tamsulosin 0.4 mg capsule 0.4 mg PO DAILY 03/24/23 07/27/23 Allergies Allergy/AdvReac Type Severity Reaction Status Date / Time sildenafil Allergy Intermediate Unknown Verified 07/27/23 11:13 tadalafil Allergy Intermediate Unknown Verified 07/27/23 11:13 vardenafil Allergy Intermediate Unknown Verified 07/27/23 11:13 azithromycin Allergy Unknown Hallucinati Verified 07/27/23 11:13 ng Review of Systems Review of Systems: All systems reviewed & are unremarkable except as noted in HPI and below Constitutional: Constitutional: Denies body ache(s), Denies chills, Denies fatigue, Denies fever(s), Denies headache(s), Denies malaise and Denies weakness Eyes: Eyes: Denies blurry vision, Denies irritation and Denies loss of vision ENT: Denies otalgia, Denies headache(s), Denies nasal discharge, Denies sinus pain and Denies sore throat Cardiovascular: Cardiovascular: Denies chest pain, Denies irregular heart rhythm and Denies dyspnea Respiratory: Respiratory: Denies dyspnea Gastrointestinal: Gastrointestinal: Denies abdominal pain, Denies melena, Denies hematochezia, Denies diarrhea, Denies nausea and Denies vomiting Musculoskeletal: Musculoskeletal: Denies back pain, Denies myalgias and Denies arthralgias Integumentary/Breasts: Skin/Breast: Denies pruritus and Reports rash Neurologic: Denies headache(s), Denies loss of vision and Denies weakness Psychiatric: Psychiatric: Reports no additional psychiatric complaints Endocrine: Endocrine: Denies fatigue [facility] Past Medical History Medical History Abdominal wall pain Rivera esophagus BMI 29.0-29.9,adult Cholelithiasis Chronic acquired lymphedema Chronic anticoagulation Chronic anxiety Chronic GERD Colon cancer screening Constipation Crepitus of joint of left knee Dyshidrotic eczema Dysphagia Essential (primary) hypertension GERD (gastroesophageal reflux disease) History of deep venous thrombosis (DVT) of distal vein of right lower extremity Insomnia Onychomycosis of right great toe Personal history of atrial fibrillation Postprandial RUQ pain Prostate cancer screening Renal insufficiency, mild RUQ pain Skin lesion of back Skin tag Vomiting Surgical History Surgical History History of cardiac radiofrequency ablation History of mitral valve repair History of tonsillectomy History of vasectomy Family History Family History Mother , age 82 Cerebrovascular accident Family history of heart disease in male family member before age 55 Father , age 82 Family history of heart disease in male family member before age 55 Sibling Family history of heart disease in male family member before age 55 Social History Social History Smoking packs per day: 1 Smoking cigarettes per day: 20.0 Ye
[2023-07-27 11:05] VITALS: BP 111/75; PULSE 64; RESP 14; TEMP 36.6; O2SAT 97
== END 2023-07-27 11:35 | disposition home or self-care (01) ==
PROVIDERS: Emergency Provider Nurse Practitioner Family; PCP Nurse Practitioner Family
DX: B35.6 Tinea cruris (principal); Z87.891 Personal history of nicotine dependence; K22.70 Barrett's esophagus without dysplasia; K21.9 Gastro-esophageal reflux disease without esophagitis; I10 Essential (primary) hypertension; Z86.718 Personal history of other venous thrombosis and embolism
CPT/HCPCS: 99213; G0463

== ENCOUNTER 2023-07-31 09:54 | Outpatient (CLI) | payer OTHER, SELFPAY ==
--- NOTE | ~2023-07-31 | CT_ITS ---
CT Scan of the Chest without Contrast: Clinical Indication: Pulmonary nodule Technique: Contiguous sections were acquired throughout the chest without intravenous contrast. Dose reduction technique was used on this scan by utilizing automated exposure control and iterative recon struction technique. The dose-length product (DLP) was 246.10 mGy-cm. COMPARISON: 07/27/2022 Findings: There is no evidence of any significant mediastinal, hilar or axillary lymphadenopathy. Coronary regina ry calcifications are present. There is no evidence of pleural or pericardial effusion. Stable 4 mm right lower lobe pulmonary nodule (axial image 83). Stable 4 mm left lower lobe pulmonary nodule (axial image 61). Images through the upper abdomen reveal no abnormalities. Impression: Stable subcentimeter pulmonary nodules, as above. Reviewed, dictated and finalized at location . Impression: Stable subcentimeter pulmonary nodules, as above.
== END 2023-07-31 09:55 | disposition home or self-care (01) ==
PROVIDERS: PCP Nurse Practitioner Family; Visit Provider Physician Assistant
DX: R91.1 Solitary pulmonary nodule (principal); Z87.891 Personal history of nicotine dependence; R91.8 Other nonspecific abnormal finding of lung field
CPT/HCPCS: 71250

== ENCOUNTER 2023-09-24 19:50 | Emergency (ER) | payer OTHER, SELFPAY ==
[2023-09-24] VITALS (7 sets, daily range): BP systolic 132–136; BP diastolic 76–94; PULSE 67–76; RESP 13–19; TEMP 36.7; O2SAT 94–98
--- NOTE | 2023-09-24 20:12 | ECG_ITS ---
Test Date: 2023-09-24 20:35:40 Measurements Intervals Tiff Rate: 72 P: 38 IA: 160 QRS: -3 QRSD: 94 T: 17 QT: 383 QTc: 420 Interpretive Statements SINUS RHYTHM CANNOT RULE OUT PREVIOUS INFERIOR INFARCTION ABNORMAL ECG No previous ECG available for comparison Electronically Signed On 09-25-2023 15:30:52 CDT by Alexi Priest M.D.
[2023-09-24 20:53] LABS: Basophils Percent Auto 0.6 % (0.2-1.2); Eosinophils Absolute Auto 0.1 K/mm3 (0-0.3); Eosinophils Percent Auto 2.1 % (0-4.4); Hematocrit 38.2 % (42.0-52.0); Hemoglobin 12.7 g/dL (14.0-18.0); Immature Granulocyte Absolute 0.02 K/mm3 (0.00-0.031); Immature Granulocyte Percent A 0.3 % (0-0.5); Lymphocytes Absolute Auto 1.73 K/mm3 (0.9-3.2); Lymphocytes Percent Auto 27.9 % (18.3-44.2); Mean Corpuscular HGB Conc 33.2 g/dl (32-36); Mean Corpuscular Volume 93.2 fl (80-100); Mean Platelet Volume 10.5 fl (7.4-10.4); Monocytes Absolute Auto 0.6 K/mm3 (0.1-0.6); Monocytes Percent Auto 8.9 % (2.6-8.5); Neutrophils Absolute Auto 3.7 K/mm3 (1.3-6.7); Neutrophils Percent Auto 60.2 % (45.5-73.1); Platelet Count Result 231 k/mm3 (150-375); Red Cell Distribution Width 13.5 % (11.5-14.5); White Blood Count 6.2 K/mm3 (4.5-10.0)
[2023-09-24 21:06] LABS: Partial Thromboplastin Time 26.8 Seconds (22.3-36.8); Prothrombin Time 13.8 Seconds (11.1-14.7)
[2023-09-24 21:12] LABS: NT Pro B Type Natriuretic Pept 494 pg/mL (19.9-100)
[2023-09-24 21:15] LABS: Troponin I < 0.012 ng/mL (0.000-0.034)
[2023-09-24 21:18] LABS: D Dimer 1.44 ug/mL (<0.48)
[2023-09-24 22:12] LABS: Add Urine Microscopic? YES; Appearance Urine Clear (Clear); Bacteria Urine None Seen /hpf; Bilirubin Urine Negative (Negative); Blood Urine 3+ (Negative); Color Urine Yellow (Yellow); Glucose Urine UA Negative (Negative); Ketones Urine Negative (Negative); Leukocyte Esterase Ur Negative LEU/UL (Negative); Nitrate Urine Negative (Negative); Non Pathogenic Casts 0-2; Protein Urine Trace mg/dL (Negative); RBC Urine 51-100 /hpf (0-2); Specific Grav Ur 1.024 (1.001-1.035); Squamous Epithelial Cell Urine None Seen /hpf (Few); WBC Urine 0-5 /hpf (0-3); pH Urine 5.5 (5.0-9.0)
--- NOTE | 2023-09-24 23:23 | ED.EXTPRO ---
HPI - Extremity Problem General Chief complaint: Extremity Problem,Nontraumatic Stated complaint: Possible DVTs? Time Seen by Provider: 09/24/23 22:27 Source: patient Mode of arrival: ambulatory Limitations: no limitations History of Present Illness HPI Narrative: This is a 63-year-old male that presents to the emergency department for swelling in his right leg. Ongoing over the last 3 days. Reports recent cardiac ablation. His senior teradata developer was concerned he may have a DVT and sent him in for evaluation. Patient also reports some mild swelling in the left lower leg. Denies chest pain or shortness of breath. Related Data Home Medications Medication Instructions Recorded Confirmed aspirin 81 mg tablet,delayed 81 mg PO DAILY 01/07/19 07/27/23 release (Enteric Coated Aspirin) alprazolam 0.25 mg tablet 1 mg PO DIRECTED PRN Anxiety 05/31/22 07/27/23 diltiazem HCl 30 mg tablet 30 mg PO DAILY PRN other 03/24/23 07/27/23 fluticasone propionate 50 2 spray intranasal DAILY 03/24/23 07/27/23 mcg/actuation nasal spray,suspension tamsulosin 0.4 mg capsule 0.4 mg PO DAILY 03/24/23 07/27/23 Allergies Allergy/AdvReac Type Severity Reaction Status Date / Time sildenafil Allergy Intermediate Unknown Verified 09/24/23 19:58 tadalafil Allergy Intermediate Unknown Verified 09/24/23 19:58 vardenafil Allergy Intermediate Unknown Verified 09/24/23 19:58 azithromycin Allergy Unknown Hallucinati Verified 09/24/23 19:58 ng Review of Systems Review of Systems: CONSTITUTIONAL: Denies fever CARDIOVASCULAR: Reports edema. Denies chest pain RESPIRATORY: Denies dyspnea. All systems reviewed & are unremarkable except as noted in HPI and below PMFSH Past Medical History Medical History Abdominal wall pain Rivera esophagus BMI 29.0-29.9,adult Cholelithiasis Chronic acquired lymphedema Chronic anticoagulation Chronic anxiety Chronic GERD Colon cancer screening Constipation Crepitus of joint of left knee Dyshidrotic eczema Dysphagia Essential (primary) hypertension GERD (gastroesophageal reflux disease) History of deep venous thrombosis (DVT) of distal vein of right lower extremity Insomnia Onychomycosis of right great toe Personal history of atrial fibrillation Postprandial RUQ pain Prostate cancer screening Renal insufficiency, mild RUQ pain Skin lesion of back Skin tag Vomiting Surgical History Surgical History History of cardiac radiofrequency ablation History of mitral valve repair History of tonsillectomy History of vasectomy Family History Family History Mother , age 82 Cerebrovascular accident Family history of heart disease in male family member before age 55 Father , age 82 Family history of heart disease in male family member before age 55 Sibling Family history of heart disease in male family member before age 55 Social History Social History Smoking packs per day: 1 Smoking cigarettes per day: 20.0 Years smoked: 30 Smoking pack-years: 30.00 Smoking status: Former smoker Tobacco type: cigarettes Smoking end date: 02/20/14 Alcohol intake: never Substance use: never Substance use type: does not use Living arrangements: with family Occupation/Education: occupation Additional occupation/education comments: Security Gender identity (if verbalized by the patient): Male Sexual Orientation (if Verbalized by the Patient): Straight or Heterosexual Spiritual care concerns: No Agree to blood products: Yes Exam Narrative: GENERAL: Well-appearing, well-nourished, and in no acute distress. HEAD: Normocephalic, atraumatic. EYES: EOMI. CHEST: Clear to auscultation. No respiratory distress. No wheezes rales or rhonchi HEART:
[2023-09-25] MEDS: ENOXAPARIN 100 MG/ML SYRINGE SUB-Q (00:02)
[2023-09-25 00:51] VITALS: BP 122/77; PULSE 70; RESP 16; TEMP 36.7; O2SAT 96
== END 2023-09-25 00:40 | disposition home or self-care (01) ==
PROVIDERS: Emergency Medicine; Emergency Provider Physician Assistant; PCP Nurse Practitioner Family
DX: R60.0 Localized edema (principal); R79.1 Abnormal coagulation profile; I10 Essential (primary) hypertension; I89.0 Lymphedema, not elsewhere classified; K22.70 Barrett's esophagus without dysplasia; N28.9 Disorder of kidney and ureter, unspecified; K21.9 Gastro-esophageal reflux disease without esophagitis; F41.9 Anxiety disorder, unspecified; Z86.718 Personal history of other venous thrombosis and embolism; Z87.891 Personal history of nicotine dependence; Z79.82 Long term (current) use of aspirin; Z79.899 Other long term (current) drug therapy; R94.31 Abnormal electrocardiogram [ECG] [EKG]
CPT/HCPCS: 36415; 81001; 83880; 84484; 85025; 85380; 85610; 85730; 93005; 93970; 96372; 99284; J1650

== ENCOUNTER 2023-09-25 07:11 | Outpatient (CLI) | payer OTHER, SELFPAY ==
--- NOTE | ~2023-09-25 | US_ITS ---
BILATERAL LOWER EXTREMITY VENOUS ULTRASOUND Ordering provider: Mayra Ortiz PA-C History: . SWELLING,PAIN . Comparison: None. FINDINGS: RIGHT LOWER EXTREMITY VEINS: --COMMON FEMORAL: Patent and free of thrombus. Normal compressibility, phasic flow and augmentation. --PROXIMAL SUPERFICIAL FEMORAL: Patent and free of thrombus. Normal compressibility, phasic flow and augmentation. --DISTAL SUPERFICIAL FEMORAL: Patent and free of thrombus. Normal compressibility, phasic flow and au gmentation. --POPLITEAL: Patent and free of thrombus. Normal compressibility, phasic flow and augmentation. --POSTERIOR TIBIAL: Patent and free of thrombus. Normal compressibility, phasic flow and augmentation . LEFT LOWER EXTREMITY VEINS: --COMMON FEMORAL: Patent and free of thrombus. Normal compressibility, phasic flow and augmentation. --PROXIMAL SUPERFICIAL FEMORAL: Patent and free of thrombus. Normal compressibility, phasic flow and augmentation. --DISTAL SUPERFICIAL FEMORAL: Patent and free of thrombus. Normal compressibility, phasic flow and au gmentation. --POPLITEAL: Patent and free of thrombus. Normal compressibility, phasic flow and augmentation. --POSTERIOR TIBIAL: Patent and free of thrombus. Normal compressibility, phasic flow and augmentation . IMPRESSION: Negative bilateral lower extremity venous US. No deep vein thrombosis. Reviewed, dictated and finalized at location A.
== END 2023-09-25 07:12 | disposition home or self-care (01) ==
PROVIDERS: PCP Internal Medicine Cardiovascular Disease; Visit Provider Physician Assistant
DX: M79.89 Other specified soft tissue disorders (principal)
CPT/HCPCS: 93970

== ENCOUNTER 2024-06-07 09:02 | Emergency (ER) | payer OTHER, SELFPAY ==
[2024-06-07] VITALS (10 sets, daily range): BP systolic 114–162; BP diastolic 68–106; PULSE 61–90; RESP 15–21; TEMP 36.3; O2SAT 92–98
--- NOTE | ~2024-06-07 | US_ITS ---
Testicular ultrasound with doppler. Indication: Left testicular pain. Technique: Real-time sonography the scrotum was performed. Color flow Doppler and Doppler spectral an alysis were performed. Findings: The testes are homogeneous in echotexture bilaterally. There is no evidence of an intrates ticular mass. The right testis measures 4.8 x 1.8 x 3.6 cm and the left 4.4 x 1.9 x 2.7 cm. There is color-flow seen to both testes. Arterial and venous spectral waveforms are seen in both testes. There is no sonographic evidence of torsion. 6 mm right epididymal head cyst or spermatocele present. Smal l left hydrocele present.. Impression: No testicular mass or torsion. Small left hydrocele, nonspecific. 6 mm right epididymal head cyst or spermatocele. Reviewed, dictated and finalized at [facility]. Impression: No testicular mass or torsion. Small left hydrocele, nonspecific. 6 mm right epididymal head cyst or spermatocele.
--- NOTE | ~2024-06-07 | CT_ITS ---
CT of the Abdomen and Pelvis: Indication: Left flank pain, testicle pain Technique: 2.5 mm axial scans were obtained through the abdomen and pelvis following intravenous adm inistration of 100 cc of Omnipaque 350. Dose reduction technique was used on this scan by utilizing a utomated exposure control and iterative reconstruction technique. The dose-length product (DLP) was 8 32.33 mGy-cm. Findings: Scans through the lung bases are unremarkable. There is diffuse fatty infiltration of liver. Cholecystectomy clips are present. 1.3 x 0.7 cm nonobst ructing right renal stone present. The spleen, pancreas, adrenals and left kidney are within normal l imits. There are atherosclerotic calcifications of the aorta. No lymphadenopathy. No bowel obstruction or bowel wall thickening. There is no evidence to suggest acute appendicitis. Images through the pelvis were performed. Urinary bladder unremarkable. No pelvic mass seen. No ascit es. Impression: No acute abnormalities seen. Diffuse fatty infiltration of liver. 1.3 x 0.7 cm nonobstructing right renal stone. Reviewed, dictated and finalized at [facility]. Impression: No acute abnormalities seen. Diffuse fatty infiltration of liver. 1.3 x 0.7 cm nonobstructing right renal stone.
--- OUTSIDE RECORDS SUMMARY | 2024-06-07 09:06 | XMS_ITS | Clinical Summary ---
Author Organization [facility] Facility Address [address] [place] [address] Care Team Providers Care Wind Energy Project Manager Name Role Phone Shadia Hartley SCHEDULE HANGER-C Primary Care Provider [phone] Social History Tobacco Use Types Packs/Day Years Used Date Smoking Tobacco: Never Assessed Sex and Gender Information Value Date Recorded Sex Assigned at Not on file Legal Sex Male 1:41 PM EST Gender Identity Not on file Sexual Orientation Not on file Plan of Treatment Health Maintenance Due Date Last Done Comments Pneumococcal Vaccine: 50+ Ye ars (1 of 2 - PCV) 1980 Colorectal Cancer Screening: Annual FOBT 2010 Colorectal Cancer Screening: Colonoscopy 2010 Colorectal Cancer Screening: Sigmoidoscopy 2010 Diabetes: Hemoglobin A1C 04/17/2024 Diabetes: Ophthalmology Exam 04/17/2024 Diabetes: Pedal Pulse Checked 04/17/2024 Diabetes: Sensory Foot Exam 04/17/2024 Diabetes: Visual Foot Exam 04/17/2024 Influenza Vaccine (Season Ended) 2024 Hepatitis B Vaccine Aged Out No longe r eligible based on patient's age to complete this topic Insurance Care Teams Wind Energy Project Manager Relationship Specialty Start Date End Date Shadia Hartley FNP-C [address] [place] [address] PCP - General Family Medicine 03/04/24
--- OUTSIDE RECORDS SUMMARY | 2024-06-07 09:06 | XMS_ITS | Encounter Summary ---
Author Organization [facility] Address [address] [place] [address] Phone Care Team Providers Care Cash Accountant Name Role Phone Alfredo Blas MD Unavailable [phone] NasimSeverino edmond DO Primary Care Provider [phone] Miscellaneous, Not In File Unavailable Unava ilable Gayle Bryant MD Primary Care Provider + Lucia GlassW Unavailable [phone] Shadia Hartley NP Primary Care Provider [phone] Encounter Details Date Type Department Care Team (Latest Contact Info) Description 09/28/2020 Orders Only [facility] Scanning, Provider Social History Tobacco Use Types Packs/Day Years Used Date Smoking Tobacco: Former Cigarettes 986 - 2015 Smokeless Tobacco: Never Alcohol Use Standard Drinks/Week Comments No 0 (1 standard drink = 0.6 oz pur e alcohol) Sex and Gender Information Value Date Recorded Sex Assigned at Not on file Legal Sex Male 9:22 PM BOX HINGE AND LOCK ATTACHER Gender Identity Not on file Sexual Orientation Not on file documented as of this encounter Plan of Treatment Not on file documented as of this encounter Procedures Procedure Name Priority Date/Time Associated Diagnosis Comments SCAN - RADIOLOGY/IMAGING 09/28/2020 documented in this encounter Results * SCAN - RADIOLOGY/IMAGING (09/28/2020) Anatomical Region Laterality Modality Other us Provider Scanning Final Result documented in this encounter Visit Diagnoses Not on filedocumented in this encounter Care Teams Cash Accountant Relationship Specialty Start Date End Date Severino Rouse DO Asim [address] [facility] [address] [place] [address] PCP - General Family Medicine 08/25/20 04/17/23 Gayle Bryant MD [address] [place] [address] PCP - General Family Medicine 04/18/23 04/07/24 Shadia Hartley NP [address] [place] [address] PCP - General Family Medicine 04/08/24 Alfredo Blas MD [address] [place] [address] [address] [place] [address] Consulting Physician Cardiology 10/19/17 Miscellaneous, Not In File 11/07/20 Lucia Glass, SENIOR COMMISSARY AGENT [address] [facility] ([facility]) Mailstop [phone] [place] [address] SHOP Outpatient Cartridge Belt Puncher 10/05/23 10/05/23 documented as of this encounter
--- OUTSIDE RECORDS SUMMARY | 2024-06-07 09:06 | XMS_ITS | Clinical Summary ---
Author Organization [facility] Address [facility] [place] [address] Care Team Providers Care Vp Corporate Partnerships Name Role Phone Zuleyma Bolanos DO Primary Care Provide r Allergies Active Allergy Reactions Criticality Noted Date Comments Azithromycin Hallucinations Medium 12/13/2016 Medications pantoprazole EC 40 MG tablet Take 40 mg by mouth daily. Active ALPRAZolam 0.25 MG tablet Take 0.25 mg by mouth nightly as needed for Sleep. Active gabapentin 300 MG capsule Take 300 mg by mouth 2 (two) times a day. Active lisinopril 20 MG tablet Take 20 mg by mouth daily. 1 Active metoprolol succinate ER 50 MG 24 hr tablet Take 125 mg by mouth daily. 1 Active PULSE OXIMETER, DME, Monitor oxygen level (COVID) prn. 1 Device 1 Active aspirin 325 MG tablet Take 1 tablet (325 mg total) by mouth daily. 30 tablet 1 Active Sod Picosulfate-Mag Ox-Cit Acd (CLENPIQ) 10-3.5-12 MG-GM -GM/160ML SolutionIndicatio ns:Screening for colon cancer,Irritable bowel syndrome with constipation Take 1 Bottle by mouth 2 (two) times daily. Take as directed by GI provider 320 mL 2 Active Active Problems Problem Noted Date Diagnosed Date Rivera's esophagus without dysplasia 01/03/2022 Overview (01/03/2022): Added automatically from request for surgery [id number] Oropharyngeal dysphagia 01/03/2022 Overview (01/03/2022): Added automatically from request for surgery [id number] Screening for colon cancer 01/03/2022 Overview (01/03/2022): Added automatically from request for surgery [id number] Irritable bowel syndrome with constipation 01/03 Overview (01/03/2022): Added automatically from request for surgery [id number] Abdominal pain 11/06/2019 Chest pain 07/27/2019 Headache 07/27/2019 Continuous dependence on cigarette smoking 09/23 PVC (premature ventricular contraction) 03/19/19 Overview (07/27/2019): Added automatically from request for surgery [id number] Deep vein thrombosis (DVT) o f lower extremity ([facility]) 12/10/2017 Overview (07/27/2019): Last Assessment & Plan: Admitted for LLE DVT from ED yesterday on heparin drip Will change to Eliquis and d/c heparin Plan d/c to home with follow up with Dr Johnson in 2 weeks with repeat LE doppler at that time Non-rheumatic mitral regurgitation 10/24/2017 Overview (07/27/2019): Added automatically from request for surgery [id number] Last Assessment & Plan: Post op Mitral valve repair per thoracotomy on 11/30 Continue telemetry and post op care (VS, I & O, daily weights) Receiving coreg Check post op 2 v CXR today Plan to remove epicardial wires Left ventricular systolic dysfunction 08/18/2017 Overview (07/27/2019): Last Assessment & Plan: Last echo 08/01/17 showing EF 45% (down from 55% in September 2011), mild MR/TR -cont home coreg Abnormal stress echo 08/01/2017 Overview (07/27/2019): Added automatically from request for surgery [id number] HTN (hypertension) 06/08/2017 Hyperlipidemia 09/20/2011 Family History Medical History Relation Comments Stroke Brother 1 Cancer Father Diabetes Father Heart Disease Mother Stroke Mother Heart Disease Sister 1 Relation Status Comments Brother 1 Alive Brother 2 Alive Brother 3 Alive Brother 4 Alive Daughter Alive Father Mother Sister 1 Alive Sister 2 Alive Sister 3 Alive Sister 4 Son Alive Social History Tobacco Use Types Packs/Day Years Used Date Smoking Tobacco: Former Smokeless Tobacco: Never Alcohol Use Standard Drinks/Week Comments No 0 (1 standard drink = 0.6 oz pur e alcohol) Sex and Gender Information Value Date Recorded Sex Assigned at Not on file Legal Sex Male 9:43 PM CDT Gender Identity Not on file Sexual Orientation Not on file Last Filed Vital Signs Vital Sign Reading Time Taken Comments Blood Pressure 113/86 04/30/2023 10:55 PM CDT Pulse 68 04/30/2023 10:55 PM CDT Temperature 35.6 C (96 F) 04/30/2023 8:45 PM CDT Respiratory Rate 18 04/30/2023 10:55 PM CDT Oxygen Saturation 100% 04/30/2023 8:45 PM CDT Inhaled Oxygen Concentration - - Weight 105 kg (231 lb 7.7 oz) 04/30/2023 8:45 PM CDT Height 185.4 cm (6' 1 ) 04/30/2023 8:45 PM CDT Body Mass Index 30.54 04/30/2023 8:45 PM CDT Plan of Treatment Health Maintenance Due Date Last Done Comments Colorectal Cancer Screening Colonoscopy (10 Years) 1961 EGD-Rivera's Surveillance 1961 Annual Physical 1964 Hepatitis C 06/18/1979 DTaP, Tdap and Td Vaccines ( 1 - Tdap) 1980 Pneumococcal Vaccine: 50+ Years (1 of 2 - PCV) 1980 Zoster Vaccines (1 of 2) 06/18/2011 RSV Immunization or 60+ Years (1 - Risk 60-74 years 1-dose series) 2021 COVID-19 Vaccine (3 2023-2 5 season) 2023 01/03/2021, 11/11/2020 Meningococcal B Vaccine Aged Out No l onger eligible based on patient's age to complete this topic Meningococcal Vaccine Aged Out No alexandro bright eligible based on patient's age to complete this topic RSV Immunizations Under 20 Months Aged Out No longer eligible b ased on patient's age to complete this topic Insurance Advance Directives * Full Code (Latest Code Status on File) Date Activated Date Inactivated Comments 10/19/2020 3:58 PM 10/20/2020 4:17 PM * Full Code Date Activated Date Inactivated Comments 11/06/2019 5:30 PM 11/07/2019 12:37 PM * Full Code Date Activated Date Inactivated Comments 11/06/2019 3:48 AM 11/06/2019 5:30 PM * Full Code Date Activated Date Inactivated Comments 07/27/2019 10:39 PM 07/28/2019 1:23 PM Care Teams Vp Corporate Partnerships Relationship Specialty Start Date End Date Zuleyma Bolanos DO [address] [id number] PCP - General FAMILY PRACTICE 09/22/21
--- OUTSIDE RECORDS SUMMARY | 2024-06-07 09:06 | XMS_ITS | Clinical Summary ---
Author Organization [facility] Address [address] [facility] [place] [address] Phone Care Team Providers Care Lean Consultant Name Role Phone Provider, None Primary Care Provider Unavailabl e Allergies Active Allergy Reactions Criticality Noted Date Comments Azithromycin Hallucinations Medium 12/13/2016 Medications gabapentin (NEURONTIN) 300 MG Capsule 0 Active Aspirin Buf,CaCarb-MgCa rb-MgO, 81 MG Tablet Take 81 mg by mouth. 7 Active metoprolol tartrate (LOPRESSOR) 25 MG Tablet TAKE 1 TABLET BY MOUTH IN THE EVENING 0 Active Eliquis 5 MG Tablet Take 5 mg by mouth 2 times daily. 0 Active metoprolol Succinate (TOPROL-XL) 100 MG TABLET SR 24 HR TAKE 1 TABLET BY MOUTH ONCE DAILY 0 Active pantoprazole (PROTONIX) 40 MG Tablet Delayed Response TAKE 1 TABLET BY MOUTH ONCE DAILY 0 Active Cyanocobalamin (B-12 PO) Take by mouth. Activ e ketoconazole (NIZORAL) 2 % Cream Apply to plantar right foot fungal infection under occlusion for 1 week then twice daily for 1 month 30 g 3 0 Active Social History Tobacco Use Types Packs/Day Years Used Date Smoking Tobacco: Former Cigarettes Smokeless Tobacco: Never Alcohol Use Standard Drinks/Week Comments Not Currently 0 (1 standard drink = 0.6 oz pur e alcohol) AUDIT-C Answer Date Recorded Q1: How often do you have a drink containing alc ohol? Never 10/15/2019 Average Number of Drinks Not on file 020 Frequency of Binge Drinking Not on file 09/21 Sex and Gender Information Value Date Recorded Sex Assigned at Not on file Legal Sex Male 2:59 PM CDT Gender Identity Not on file Sexual Orientation Not on file Last Filed Vital Signs Vital Sign Reading Time Taken Comments Blood Pressure 114/82 10/15/2019 8:19 AM CDT Pulse 97 10/15/2019 8:19 AM CDT Temperature 35.8 C (96.4 F) 10/15/2019 8:19 AM CDT Respiratory Rate 16 10/15/2019 8:19 AM CDT Oxygen Saturation 99% 10/15/2019 8:19 AM CDT Inhaled Oxygen Concentration - - Weight 101.6 kg (224 lb) 10/15/2019 8:19 AM CDT Height 185.4 cm (6' 1 ) 10/15/2019 8:19 AM CDT Body Mass Index 29.55 10/15/2019 8:19 AM CDT Plan of Treatment Health Maintenance Due Date Last Done Comments Hepatitis C Virus (HCV) Screening 1961 TdaP Immunization 1961 Colonoscopy 2006 Colorectal Cancer Screening 2006 Cologuard 06/18/2011 Immunochemical Fecal Occult Blood 06/18/2011 Pneumococcal Immunization (5 0+ years) (1 of 1 - PCV) 06/18/2011 Zoster Immunization (1 of 2) 06/18/2011 Influenza Immunization (#1) 2023 SARS-COV-2 Immunization ( - season) 2023 01/03/2021, 11/11/2020 Respiratory Syncytial Virus (RSV) Immunization (Adult) (1 - 1-dose 75+ series) 2036 Hepatitis B Immunization Aged Out No longer eligible based on patient's age to complete this topic Meningococcal Immunization (ACWY) Aged Out No longer eligible b ased on patient's age to complete this topic Rotavirus Immunization Aged Out No lo nger eligible based on patient's age to complete this topic [place] [address] [place] [address] Care Teams Lean Consultant Relationship Specialty Start Date End Date Provider, None [place] PCP - General 10/15/19
--- OUTSIDE RECORDS SUMMARY | 2024-06-07 09:06 | XMS_ITS | Encounter Summary ---
Author Organization [facility] Address [address] [place] [address] Care Team Providers Care Alarm Investigator Name Role Phone Kaveh Kc MD Primary Care Provider [phone] [place] Bush Primary Care Provider [phone] Severino Rouse DO Primary Care Provider [phone] Zuleyma Bolanos DO Primary Care Provide r Encounter Details Date Type Department Care Team (Late st Contact Info) Description 07/29/2019 Hospital Follow-up Call [facility] [place] [address] Dinah Dewey, RN Social History Tobacco Use Types Packs/Day Years Used Date Smoking Tobacco: Former Smokeless Tobacco: Never Alcohol Use Standard Drinks/Week Comments No 0 (1 standard drink = 0.6 oz pur e alcohol) Sex and Gender Information Value Date Recorded Sex Assigned at Not on file Legal Sex Male 9:43 PM CDT Gender Identity Not on file Sexual Orientation Not on file COVID-19 Exposure Response Date Recorded In the last month, have you been in contact with someone who was confirmed or suspected to have Coronavirus / COVID-19? No / Unsure 07/27/2019 9:08 PM CDT documented as of this encounter Functional Status * RETIRED Are you deaf or do you have serious difficulty hearing Answer Date of Assessment Author Status No 07/28/2019 3:25 AM CDT Activ e * RETIRED Are you blind or do you have serious difficulty seeing, even when wearing glasses? Answer Date of Assessment Author Status No 07/28/2019 3:25 AM CDT Activ e * Do you have serious difficulty walking or climbing stairs? Answer Date of Assessment Author Status No 07/28/2019 3:25 AM CDT Stephanie Reis RN Active * Do you have difficulty dressing or bathing? Answer Date of Assessment Author Status No 07/28/2019 3:25 AM CDT Stephanie Reis RN Active * Because of a physical, mental, or emotional condition, do you have difficulty doing errands alone such as visiting a doctor's office or shopping? Answer Date of Assessment Author Status No 07/28/2019 3:25 AM CDT Stephanie Reis RN Active documented as of this encounter Mental Status * Because of a physical, mental, or emotional condition, do you have serious difficulty concentrating, remembering, or making decisions? Answer Entry Date Author Status No 07/28/2019 3:25 AM CDT Stephanie Reis RN Active documented in this encounter Plan of Treatment Not on file documented as of this encounter Visit Diagnoses Not on filedocumented in this encounter Additional Health Concerns Infection Onset Date Last Indicated Resolved Time COVID-19 Rule Out 11/06/2019 11/06/2019 11/06/2019 7:59 AM CDT COVID-19 Confirmed 11/21/2020 11/21/2020 12:32 AM CDT COVID-19 Rule Out 01/24/2021 01/24/2021 01/24/2021 9:44 AM FLOORING SALESPERSON COVID-19 Confirmed 01/24/2021 01/24/2021 12:32 AM FLOORING SALESPERSON documented as of this encounter Care Teams Alarm Investigator Relationship Specialty Start Date End Date Kaveh Kc MD PCP - General FAMILY PRACTICE 05/25/17 10/17/19 [place] [address] [place] [address] PCP - General PHYSICIAN RETAIL SECURITY PROFESSIONAL 10/18/19 11/04/19 Severino Rouse DO 3 [facility] [address] [place] [address] PCP - General FAMILY PRACTICE 11/05/19 09/21/21 Zuleyma Bolanos DO 3 [facility] [address] [place] [address] PCP - General FAMILY PRACTICE 09/22/21 documented as of this encounter
--- OUTSIDE RECORDS SUMMARY | 2024-06-07 09:06 | XMS_ITS | Encounter Summary ---
Author Organization [facility] Address [address] [place] [address] Care Team Providers Care Director Patient Accounting Name Role Phone Kaveh Kc MD Primary Care Provider [phone] Alfredo Blas MD Unavailable [phone] NasimSeverino edmond DO Primary Care Provider [phone] Miscellaneous, Not In File Unavailable Unava ilable Gayle Bryant MD Primary Care Provider + Lucia Glass [facility] Unavailable [phone] Shadia Hartley NP Primary Care Provider [phone] Encounter Details Date Type Department Care Team (Late st Contact Info) Description 12/09/2017 Documentation [facility] Case Management [address] [place] [address] Brandie Randle RN Social History Tobacco Use Types Packs/Day Years Used Date Smoking Tobacco: Former Cigarettes - 2015 Smokeless Tobacco: Never Alcohol Use Standard Drinks/Week Comments No 0 (1 standard drink = 0.6 oz pur e alcohol) Sex and Gender Information Value Date Recorded Sex Assigned at Not on file Legal Sex Male 9:22 PM GAS LEAK TESTER Gender Identity Not on file Sexual Orientation Not on file documented as of this encounter Plan of Treatment Not on file documented as of this encounter Visit Diagnoses Not on filedocumented in this encounter Care Teams Director Patient Accounting Relationship Specialty Start Date End Date Kaveh Kc MD [address] [address] PCP - General 08/17/17 08/24/20 Severino Rouse DO 3 [facility] [address] [place] [address] PCP - General Family Medicine 08/25/20 04/17/23 Gayle Bryant MD [address] [facility] [address] [place] [address] PCP - General Family Medicine 04/18/23 04/07/24 Shadia Hartley NP [address] [place] [address] PCP - General Family Medicine 04/08/24 Alfredo Blas MD [address] [facility] [address] [place] [address] Consulting Physician Cardiology 10/19/17 Miscellaneous, Not In File 11/07/20 Lucia Glass, REAR ADMIRAL [address] [facility] ([facility] Mailstop [id number] [place] [address] SHOP Outpatient Supervisor Mechanic Boilermaking 10/05/23 10/05/23 documented as of this encounter
--- OUTSIDE RECORDS SUMMARY | 2024-06-07 09:06 | XMS_ITS | Clinical Summary ---
Author Organization [facility] [address] Address [address] [place] [address] Care Team Providers Care Patent Prosecution Paralegal Name Role Phone Alfredo Blas MD Unavailable Miscellaneous, Not In File Unavailable Unava ilable Shadia Hartley NP Primary Care Provider Allergies Active Allergy Reactions Criticality Noted Date Comments Azithromycin Hallucinations Medium 12/13/[address] (PROTONIX) 40 mg EC tabletIndication s:Stress Ulcer Prophylaxis Take 1 tablet (40 mg total) by mouth 2 (two) times a day 2 9 Active gabapentin (NEURONTIN) 300 mg capsule Take 1 capsule (300 mg total) by mouth daily 30 capsule 9 Active metFORMIN XR (GLUCOPHAGE XR) 500 mg 24 hr tabletIndication s:Prevention of Type 2 Diabetes Mellitus Take 1 tablet (500 mg total) by mouth daily with breakfast 3 Active sildenafiL (VIAGRA) 50 mg tabletIndication s:Erectile Dysfunction Take 1 tablet (50 mg total) by mouth as needed for erectile dysfunction 3 Active ALPRAZolam (XANAX) 1 mg tabletIndication s:anxiety Take 1 tablet (1 mg total) by mouth nightly as needed for anxiety Active clotrimazole 1 % creamIndications :cutaneous candidiasis Apply 1 Application topically daily as needed (rash) 4 Active acetaminophen (TYLENOL) 500 mg tabletIndication s:Pain Take 2 tablets (1,000 mg total) by mouth every 6 (six) hours as needed for pain Active carvediloL (COREG) 3.125 mg tablet Take 1 tablet (3.125 mg total) by mouth 2 (two) times a day with meals 60 tablet 11 4 09/28/19 25 Active furosemide (LASIX) 20 mg tablet Take 1 tablet (20 mg total) by mouth daily as needed (take for weight gain of 3lbs or more in 24 hours.) 4 Active losartan (COZAAR) 25 mg tablet Take 0.5 tablets (12.5 mg total) by mouth daily as needed (for blood pressure 140/90 or higher) Active empagliflozin (JARDIANCE) 10 mg tablet Take 1 tablet (10 mg total) by mouth daily 90 tablet 3 4 Active Active Problems Problem Noted Date Diagnosed Date History of mitral valve repair 10/03/2023 Assessment & Plan (10/04/2023 11:58 AM CDT): -status post mitral valve repair by Dr. Johnson in 2018 -TTE 10/2022--mild MR, no MS -repeat TTE showed mild to moderate MR. GERD (gastroesophageal reflux disease) Assessment & Plan (08/14/2023 9:15 PM CDT): -resume home PPI. Neuropathic pain 08/14/2023 Assessment & Plan (08/14/2023 9:16 PM CDT): -resume home gabapentin. Symptomatic PVCs 04/21/2023 Assessment & Plan (04/22/2023 2:56 PM CART DRIVER): History of symptomatic PVCs s/p ablation in 2019). Presented on 04/20 for elective sotalol load for PVCs. -Started sotalol 80mg daily yesterday evening (04/20) given CrCl 57 and post EKG stable -Patient states he feels well and feels he is having less pounding heartbeats today -Increase sotalol to 120mg daily starting this evening -EKGs 2 hours after each dose of sotalol -Home metoprolol XL 50 mg daily held with initiation of sotalol -Currently sinus rhythm, HR 60s -Continuous telemetry monitoring -Keep K > 4.0 & Mg > 2.0, replete as indicated Coronary artery disease 04/21/2023 Assessment & Plan (10/04/2023 11:57 AM CDT): -R/LHC 11/2021- 5-30% in prox and mid RCA, otherwise rest of system patent. CI 2.2, RA 9, PAP 30/20, wedge 13 -EKG on admission stable at baseline -trops negative - no further reports of chest pain. Assessment & Plan (08/15/2023 11:00 AM CDT): Non-obstructive CAD. -resume home aspirin, atorvastatin, metoprolol. Pt defer restarting enstresto until outpatient follow up with cardiology. Assessment & Plan (04/22/2023 2:45 PM CART DRIVER): Mild CAD on [facility] (25% mid RCA) in 2021. -Denies chest pain -Home metoprolol held given sotalol initiation -Continue aspirin 81mg daily PVC (premature ventricular contraction) 01/13/20 22 MAKENZIE (obstructive sleep apnea) 06/01/2021 Assessment & Plan (10/03/2023 12:29 PM CDT): -non-compliant, refuses CPAP Assessment & Plan (08/14/2023 9:15 PM CDT): -MAKENZIE precautions. Chronic heart failure with m ildly reduced ejection fraction (HFmrEF, 41-49%) 11/07/2020 Assessment & Plan (08/15/2023 10:59 AM CDT): Non ischemic cardiomyopathy w/ recovered EF, EF:50% per last TTE in 10/2022. -Strict I/O, daily weights and V monitoring. Currently euvolemic. -As per elsewhere, resume home metoprolol and deferring entresto to cards as per pt request. Assessment & Plan (11/07/2020 9:39 AM CDT): LVEF 45% 2017 --> 34% 2018 --> 51% 03/2020 -repeat TTE -appears euvolemic and well compensated -Metoprolol dosing as noted above -Continue home lisinopril; increase if needed based on BP Anxiety 11/07/2020 Assessment & Plan (10/03/2023 11:35 AM CDT): -Anxiety, takes xanax daily PRN, usually takes everyday -Continue xanax Assessment & Plan (08/14/2023 9:15 PM CDT): -resume home xanax nightly prn. Assessment & Plan (04/22/2023 2:44 PM CART DRIVER): -Continue home alprazolam PRN Assessment & Plan (11/07/2020 9:42 AM CDT): -patient endorses anxiety that started after his valve surgery -May need to be treated with SSRI rather than PRN xanax Stage 3a chronic kidney disease 11/07/2020 Assessment & Plan (10/03/2023 11:30 AM CDT): -Cre at baseline 1.5-1.6 -monitor with gentle diuresis Assessment & Plan (08/14/2023 9:14 PM CDT): Baseline Cr 1.6. -Renally dose meds and avoid nephrotoxins. Assessment & Plan (11/07/2020 9:50 AM CDT): -stage 3 -appears at baseline Palpitations 11/06/2020 Assessment & Plan (11/07/2020 9:38 AM CDT): -Likely related to PVCs. Although overall low burden based on 08/2020 Holter monitor, he appears to be quite symptomatic from them -Tele shows infrequent PVCs -Increase metoprolol from 125mg daily to 100mg BID -Consider sotalol -TTE given increase in symptoms since last echo -patient endorses anxiety which may be a component Continuous dependence on cigarette smoking 09/23 PVC (premature ventricular contraction) 03/19/19 19 Overview (03/19/2018): Added automatically from request for surgery [id number] Assessment & Plan (10/04/2023 12:04 PM CDT): -Extensive history of PVCs; Hx of PVC ablation 07/2023; hx of sotalol however did not tolerate (sluggish feeling); follows with EP -maintained on metoprolol, metoprolol was changed to Coreg -Recent MCT completed; report in media tab -Telemetry, monitor electrolytes on daily labs Assessment & Plan (08/15/2023 11:02 AM CDT): On metoprolol X 50 mg daily and diltiazem 30 mg q6hrs prn. -s/p ablation of PVCs by EP today with no complications, being admitted for monitoring post procedure. -continuous telemetry. -I reviewed EP's note and recommendations. -strict bedrest for 2 hours then w/ bathroom privileges overnight. -keep bilateral groin dressings applied overnight -start eliquis 5 mg bid, will need a 30 day supply on discharge. -continue home metoprolol w/ first dose tonight. -EP recs for discharge: continue 50 mg metoprolol daily, and 5 mg Eliquis BID, EP to schedule follow up Deep vein thrombosis (DVT) of lower extremity (C MS/HCC) 12/10/2017 Assessment & Plan (10/03/2023 11:19 AM CDT): -Hx of DVT 2017, recent right leg swelling with negative dopplers -Currently not on AC (previously on Eliqius) Assessment & Plan (11/07/2020 9:40 AM CDT): -continue apixaban Assessment & Plan (12/10/2017 11:34 AM CDT): Admitted for LLE DVT from ED yesterday on heparin drip Will change to Eliquis and d/c heparin Plan d/c to home with follow up with Dr Johnson in 2 weeks with repeat LE doppler at that time Acute pain 11/30/2017 Assessment & Plan (12/03/2017 12:04 PM CDT): Continue prn tylenol & narcotics Laxatives, for anesthesia and narcotic side effects Assessment & Plan (12/02/2017 12:10 PM CDT): Expected post thoracotomy surgery. - D/c Dilaudid - Scheduled Tylenol - gabapentin 300 mg TID - prn oxy - lido patches Assessment & Plan (12/01/2017 1:14 PM CDT): Expected post thoracotomy surgery. - D/c fentanyl - Dilaudid 0.5 IV q2h prn pain - Scheduled Tylenol - gabapentin 300 mg TID - prn oxy - lido patches Assessment & Plan (11/30/2017 6:23 PM CDT): Expected post thoracotomy surgery. -Fentanyl IV prn while intubated - Scheduled Tylenol - prn oxy - lido patches Non-rheumatic mitral regurgitation 10/24/2017 Overview (10/24/2017): Added automatically from request for surgery [id number] Assessment & Plan (12/03/2017 12:02 PM CDT): Post op Mitral valve repair per thoracotomy on 11/30 Continue telemetry and post op care (VS, I & O, daily weights) Receiving coreg Check post op 2 v CXR today Plan to remove epicardial wires Assessment & Plan (12/02/2017 12:14 PM CDT): S/p MV repair with 34 mm Ring postop care to include: Stress ulcer prophylaxis: n/a Nutrition plan: Cardiac diet Bowel regimen: colace, senna, Miralax DVT prophylaxis: SCDs and SQH Physical therapy/Activity: OOBTC and ambulate with PT D/c SSI and change accuchecks to BID ac Assessment & Plan (12/01/2017 1:17 PM CDT): S/p MV repair with 34 mm Ring postop care to include: Stress ulcer prophylaxis: d/c ppi Nutrition plan: Cl Liq and ADAT Bowel regimen: colace, senna DVT prophylaxis: SCDs, add SQH Physical therapy/Activity: OOBTC and ambulate with PT Assessment & Plan (11/30/2017 6:23 PM CDT): S/p MV repair with 34 mm Ring postop care to include: Stress ulcer prophylaxis: PPI while intubated, transition to oral and continue if on home ppi ppi Nutrition plan: NPO until extubated, then Cl Liq and ADAT Bowel regimen: colace, senna DVT prophylaxis: SCDs, add SQH POD1 if no bleeding issues Physical therapy/Activity: OOBTC and ambulate with PT POD1 Left ventricular dysfunction with preserved left ventricular ejection fraction 08/18/2017 Assessment & Plan (04/22/2023 2:43 PM CART DRIVER): History of mild cardiomyopathy with LVEF as low as 40s around the time of his MV repair in 2017. Now with low-normal LVEF (50%) on last TTE in 10/2022. -Hemodynamically stable, appears euvolemic on exam -Continue Entresto 1/2 tablet 24-26mg BID -Home metoprolol held given initiation of sotalol -Monitor I&Os, daily weights Assessment & Plan (08/18/2017 1:16 AM CDT): Last echo 08/01/17 showing EF 45% (down from 55% in September 2011), mild MR/TR -cont home coreg Abnormal stress echo 08/01/2017 Overview (08/01/2017): Added automatically from request for surgery [id number] Essential hypertension 06/08/2017 Assessment & Plan (10/04/2023 12:03 PM CDT): -BP at home 160's/100's which prompted ED presentation -hypertensive on arrival to ED, BP improved without significant intervention -Previously controlled on Metoprolol; newly added Losartan and Coreg (started 10/01) -BP well controlled; continue losartan and Carvedilol. Assessment & Plan (10/03/2023 11:00 AM CDT): -Previously controlled on Metoprolol; newly added Losartan and Coreg -hypertensive on arrival to ED, improved now at 138/98 -Resume losartan, holding coreg for now, will add another anti-hypertensive agent if BP remains above goal. Assessment & Plan (08/15/2023 10:58 AM CDT): Currently holding entresto at home since mid June as his BP was dropping, likely due to PVCs. Continues on metoprolol and diltiazem prn for PVCs. -Pt defers restarting entresto until outpatient follow up with cardiology with concerns for hypotension -resume home metop as per elsewhere. Assessment & Plan (11/07/2020 9:40 AM CDT): -Continue home HCTZ, lisinopril; increase if needed based on BP -Metoprolol dosing as noted above Hyperlipidemia 09/20/2011 Assessment & Plan (08/14/2023 9:15 PM CDT): -resume home atorvastatin. Assessment & Plan (04/22/2023 2:42 PM CART DRIVER): Lipid panel 04/20: Total cholesterol-161, HDL35, LDL-106, Triglycerides-100. Previously on atorvastatin 20mg daily per Dr. Blas's notes. -Would recommend resuming statin but will discuss with patient first Resolved Problems Problem Noted Date Diagnosed Date Resolved Date Acute on chronic systolic (c ongestive) heart failure 10/03/2023 04/18/2024 Assessment & Plan (10/04/2023 11:57 AM CDT): -NICM; presents to ED with HTN, COLLINS, and headache. Recently started GDMT including Lasix 20 mg daily, losartan 25 mg daily, Coreg 3.125 mg BID, farxiga. First dose of medications taken 10/01 with increased urine output and decreased abdominal distention. Denies weight gain. -TTE 10/2022--LVEF 50%, RV function normal, s/p MV repair - 10/02: repeat TTE--normal LV and RV systolic fnx, LVEF 56%. LV wall thickness mildly increased. Mild to Mod MR, trace TR, mild DC. -Hemodynamically stable, appears mildly volume up on exam, weight stable at home -Continue home medications-losartan 25 mg daily and farxiga; Lasix increased to 20 mg PO BID. -started on Coreg 3.125 mg BID (previously on Metoprolol). -daily weights, I&Os, 2 g Na diet. -tele monitor. Assessment & Plan (10/03/2023 10:58 AM CDT): -NICM; presents to ED with HTN, COLLINS, and headache. Recently started GDMT including Lasix 20 mg daily, losartan 25 mg daily, Coreg 3.125 mg BID, farxiga. First dose of medications taken 10/01 with increased urine output and decreased abdominal distention. Denies weight gain. -TTE 10/2022--LVEF 50%, RV function normal, s/p MV repair -Hemodynamically stable, appears mildly volume up on exam, weight stable at home -Continue home medications-Lasix 20 mg PO daily, losartan 25 mg daily, farxiga; will hold Coreg for now for (previously on Metoprolol) -TTE ordered -daily weights, I&Os Acute kidney injury 12/02/2017 12/11/19 18 Assessment & Plan (12/03/2017 12:05 PM CDT): Daily BMPs, while inpatient Assessment & Plan (12/02/2017 12:13 PM CDT): Cr uptrending 1.4> 1.61 in post CPB setting. -Hold off on diuresis - Recheck BMP in am -Ok to d/c manjit Acute pulmonary insufficiency 11/30/2017 12/03/2017 Assessment & Plan (12/02/2017 12:10 PM CDT): As expected post surgery requiring CPB. Currently on NC 2lpm. - Wean supplemental O2 to keep sat >92% - Aggressive pulmonary toileting with incentive spirometry q1h - OOBTC and ambulate With PT Assessment & Plan (12/01/2017 1:15 PM CDT): As expected post surgery requiring CPB. Extubated last PM. Currently on NC 2lpm. - Wean supplemental O2 to keep sat >92% - Aggressive pulmonary toileting with incentive spirometry q1h - OOBTC and ambulate POD1 Assessment & Plan (11/30/2017 5:54 PM CDT): As expected post surgery requiring CPB. - Once chest tube output is consistently less than 100ml/hr and hemodynamics adequately supported, wean sedation and PSV trial - Extubate when fully awake and able to successfully complete PSV trial - Wean supplemental O2 to keep sat >92% - Aggressive pulmonary toileting with incentive spirometry q1h - OOBTC and ambulate POD1 Acute blood loss anemia 11/30/201711/21 Assessment & Plan (12/03/2017 12:03 PM CDT): Continue daily CBCs, expect slow uptrend Added MVI w/ iron Assessment & Plan (12/02/2017 12:09 PM CDT): Hb from 8.8 yest to 9.5 this am. No signs of active bleeding. - No indication for transfusion at this time. - Goal to keep Hb > 8.0 Assessment & Plan (12/01/2017 1:11 PM CDT): Hb from 9.9 postop to 8.8 this am. No signs of active bleeding. - No indication for transfusion at this time. - Goal to keep Hb > 8.0 Assessment & Plan (11/30/2017 6:02 PM CDT): Hb is 9.9 postop. No signs of active bleeding. - No indication for transfusion at this time. - Goal to keep Hb > 7.5 Myocardial stunning 11/30/2017 12/04/19 18 Assessment & Plan (12/02/2017 12:19 PM CDT): Resolved. Tolerating BB. Tolerating bigeminal PVCs (chronic). Mild hypotension overnight resolved with albumin 250 ml x 1. -VVI backup at 50 Assessment & Plan (12/01/2017 1:16 PM CDT): Pre-CPB JENNIFER showed LV systolic dysfunction with EF 35-40%, normal RV function, and mod-severe MR. Post CPB JENNIFER showed improvement of LVEF to 45-50% on epi 0.03. Normal RV function. No residual MR. Epi now weaned off - d/c PAC/Cordis -VVI backup at 50 Assessment & Plan (12/01/2017 5:22 AM CDT): Pre-CPB JENNIFER showed LV systolic dysfunction with EF 35-40%, normal RV function, and mod-severe MR. Post CPB JENNIFER showed improvement of LVEF to 45-50% on epi 0.03. Normal RV function. No residual MR. Weaned off NE after arrrival from OR now on nicardipine for BP control - Epi wean Q8 for CI >2.2. -VVI backup at 50 Assessment & Plan (11/30/2017 6:19 PM CDT): Pre-CPB JENNIFER showed LV systolic dysfunction with EF 35-40%, normal RV function, and mod-severe MR. Post CPB JENNIFER showed improvement of LVEF to 45-50% on epi 0.03. Normal RV function. No residual MR. Weaned off NE after arrrival from OR now on nicardipine for BP control - Decrease Epi to 0.2 now - Once extubated, wean q8h for CI >2.2 - Wean nicardipine to keep MAP 65-75 - Change AAI pacing at 90 to VVI backup at 50 HTN (hypertension), benign 06/11/2017 1 Assessment & Plan (08/18/2017 1:15 AM CDT): -cont home amlodipine and lisinopril Mitral valve prolapse 06/11/20172017 Syncope 06/11/2017 12/10/2017 BMI 26.0-26.9,adult 06/08/2017 12/04/19 18 Chest pain 06/08/2017 12/03/2017 Assessment & Plan (08/18/2017 1:31 AM CDT): Trop negative in ED, CXR unremarkable, ECG showing bigeminy, also noted on previous ECG 08/09/17 at OSH. Pts symptoms not classic for angina, but combined with history concerning for ACS. Pt had [facility] scheduled for 08/22. Follows with Dr. Blas. -[facility] -Hgb A1c, lipid panel -cont home aspirin and atorvastatin PVC (premature ventricular contraction) 06/08/2017 12/10/2017 Encounters Date Type Department Care Team Description 04/18/2024 9:00 AM CART DRIVER Office Visit [facility] Cardiology [address] [place] [address] Leonie Doty MD Symptomatic PVCs (Primary Dx); History of mitral valve repair; Coronary artery disease involving samish coronary artery of samish heart without angina pectoris; Chronic heart failure with mildly reduced ejection fraction (HFmrEF, 41-49%) ([facility]); Essential hypertension 03/22/2024 2:30 PM CART DRIVER Ancillary Procedure [facility] Cardiology [address] [place] [address] PVC's (premature ventricular contractions); Palpitations 03/22/2024 Orders Only [facility] Cardiology [address] Advanced [facility] [address] [place] [address] [place] [address] Amy Betts MD PVC's (premature ventricular contractions) (Primary Dx); Palpitations 03/16/2024 Patient Self-Triage [facility] [address] [place] [address] Mychart, Generic Provider from Last 3 Months Surgical History Surgery Date Site/Laterality Comments VASECTOMY TONSILLECTOMY REVISION AMPUTATION OF FINGER HEEL SPUR EXCISION MITRAL VALVE REPAIR 11/30/2017 mini thoracotomy with mitral valve repair and ring annuloplasty CARDIAC CATHETERIZATION 07/21/2017 - 08/19/2017 COLONOSCOPY Medical History Medical History Date Comments HTN (hypertension) Coronary artery disease Nonobstr uctive PVC (premature ventricular contraction) Hyperlipidemia Nonischemic cardiomyopathy (HCC) Sleep apnea GERD (gastroesophageal reflux disease) DVT (deep venous thrombosis) ([facility]) Hx of RLE DVT CKD (chronic kidney disease) stage 3, GFR 30-59 ml/min (HCC) Congestive heart failure, un specified HF chronicity, unspecified heart failure type (HCC) 10/03/2023 Family History Medical History Relation Name Comments Transient ischemic attack Brother Heart attack Father Family history of heart attack - (Added by TW Conv) Heart attack Mother Family history of heart attack - (Added by TW Conv) Stroke Mother Family history of stroke - (Added by TW Conv) Stroke Sister 1 Family history of stroke - (Added by TW Conv) Heart attack Sister 2 Family history of heart attack - (Added by TW Conv) Anesthesia problems Neg Hx Relation Name Status Comments Brother Alive Father (Age 91) Mother (Age 81) Sister 1 Sister 2 Alive Social History Tobacco Use Types Packs/Day Years Used Date Smoking Tobacco: Former Cigarettes 1 37 1 979 - 2016 Passive Smoke Exposure: Past Smokeless Tobacco: Never Tobacco Cessation:Counseling Given: Not Answered Alcohol Use Standard Drinks/Week Comments No 0 (1 standard drink = 0.6 oz pur e alcohol) AUDIT-C Answer Date Recorded Q1: How often do you have a drink containing alcohol? Never 08/14/2023 Q2: How many drinks containi ng alcohol do you have on a typical day when you are drinking? Patient does not drink Q3: How often do you have si x or more drinks on one occasion? Never 08/14/2023 Personal Safety Answer Date Recorded Have you ever been in or are you currently in a harmful physical or emotional relationship or is someone making you feel afraid or unsafe? Denies 10/02/2023 Sex and Gender Information Value Date Recorded Sex Assigned at Not on file Legal Sex Male 9:22 PM CART DRIVER Gender Identity Not on file Sexual Orientation Not on file Obstetrics History Last Filed Vital Signs Vital Sign Reading Time Taken Comments Blood Pressure 120/82 04/18/2024 8:55 AM CART DRIVER Pulse 73 04/18/2024 8:55 AM CART DRIVER Temperature 36.7 C (98.1 F) 12/07/2023 3:33 PM CDT Respiratory Rate 18 10/04/2023 11:17 AM CDT Oxygen Saturation 99% 04/18/2024 8:55 AM CART DRIVER Inhaled Oxygen Concentration - - Weight 102.5 kg (226 lb) 04/18/2024 8:55 AM CART DRIVER Height 182.9 cm (6') 04/18/2024 8:55 AM CART DRIVER Body Mass Index 30.65 04/18/2024 8:55 AM CART DRIVER Plan of Treatment Health Maintenance Due Date Last Done Comments Colon Cancer Screening-Colonoscopy 1961 Depression Screening 1961 Hepatitis C Screening 1961 Prostate Cancer Screening-PSA 1961 Regular Well Visit/Exam 18-64 06/18/1979 Pneumococcal vaccine <65 (1 of 2 - PCV) 1980 DTaP/Tdap/Td Vaccine (1 - Tdap) 06/23/2008 9 Lung Cancer Screening 06/18/2011 Zoster Vaccine (1 of 2) 06/18/2011 Covid-19 Vaccine (3 - season) 2023, 11/11/2020 Influenza Vaccine (Season Ended) 2024 12/24/19 Hepatitis B Screening Completed 06/22/2008 Medical Devices Implanted Type Area Sales Review Clerk Device Identifier Shelf Expiration Date Model / Serial / Lot [employer] Vascade Mvp 6-12fr Venous Closure [id number] - [id number] - [id number] Implanted:Qty: 1 on 08/14/2023 by Amy Betts MD at [facility] Collagen Left: Femoral Vein [employer] 04/25/2025 [id number] -[id number] / [id number] / [id number] [employer] Vascade Mvp 6-12fr Venous Closure [id number] - [id number] - [id number] Implanted:Qty: 1 on 08/14/2023 by Amy Betts MD at [facility] Collagen Right: Femoral Vein [employer] 04/25/2025 [id number] -[id number] / [id number] / [id number] [employer] Device Vascular Closure Femoral Artery Bioabsorbable Dual Method Vascade 6-7fr Collagen [id number] - [id number] - [id number] Implanted:Qty: 1 on 08/14/2023 by Amy Betts MD at [facility] Collagen Left: Femoral Vein [employer] 04/18/2025 [id number] -[id number] / [id number] / [id number] Med[employer] Card Vas Surgery [id number] Streamline 53cm Temporary Bipolar Coaxial Myocardium Lead Pacing Latex Free - [id number] Implanted:Qty: 1 on 11/30/2017 by Tenzin Johnson Jr., MD at [facility] Lead N/A: Chest [employer] Card Vas Surgery 09/12/2019 [id number] / / [employer] [id number] Montrell-Dennis ds Physio Ii 34mm Kurtz Sew Mitral Ring - [id number] - [id number] Implanted:Qty: 1 on 11/30/2017 by Tenzin Johnson Jr., MD at [facility] Prosthetic Valve N/A: Chest [employer] 10/02/2021 [id number] / [id number] / Description:PHYSIO II ANNULO PLASTY RING Procedures Procedure Name Priority Date/Time Associated Diagnosis Comments ELECTROCARDIOGRAM REPORT Routine 04/18/2024 Symptomatic PVCs EXTENDED/SHELTER HOLTER PATCH (>48 HOURS UP TO 7 DAYS) Routine 03/23/2024 8:12 AM CART DRIVER PVC's (premature ventricular contractions) Palpitations from Last 3 Months Results * Electrocardiogram Report (04/18/2024) 04/18/2024 [facility] Angela Doty MD ECG ORDERABLES Final R esult * Extended/Group Home Holter Patch (>48 hours up to 7 days) (03/23/2024 8:12 AM CART DRIVER) LV EF % CONS SCIMAGE Anatomical Region Laterality Modality Electrocardiogra phy 03/23/2024 8:12 AM CART DRIVER Narrative 03/31/2024 11:31 PM CART DRIVER [facility], [address] [address] [place] [address] HOLTER MONITOR Patient Name: EMMIE SCHILLING L : 1960 (63y 9m) Gender: M Study Date: 03/23/2024 08:12:43 AM Ht(Inch): 78 Wt(Lb): 226 BSA: 2.38 Tech: Location: [facility] Order Provider: AMY BETTS BMI: 26.11 Ref Provider: AMY BETTS - PROCEDURES: Holter Report: EXTENDED/SHELTER HOLTER PATCH (>48 HOURS UP TO 7 DAYS) [CAR79]. Hookup: Hookup Tech: Trupti Monsalve. Patient Instructions: Patient understood directions and use of equipment (Patient Hookup at Home) and patient given monitor in office during appointment, patient understands directions and use of equipment. Enrollment Period: 03/23/2024 08:12 - 03/25/2024 13:14. INDICATIONS: I49.3 Ventricular premature depolarization and R00.2 Palpitations. FINDINGS: Holter Data: Min Rate: 51 BPM Min Rate Timestamp: 2024-03-24 16:48:22 Max Rate: 141 BPM Max Rate Timestamp: 2024-03-25 05:09:05 Mean Rate: 70 BPM Singlets (PACs): 281 events Couplets (PACs): 5 events Total (SVE): 310 events Singlets (PVCs): 53273 events Couplets (PVCs): 315 events Total (VE): 53683 events Total beats: 456496 Protocol: Recording Duration (Ordered): 3d Recording Duration (Actual): 923848.98 Monitor Number: [id number] Total QRS: 933515 Date Recorded: 2024-03-23 08:12:43 Date Processed: 2024-03-23 08:12:43 Number of Diary entries: 11 Patient Triggers 1 03/23 08:17:58 Patient Trigger Associated with Ventricular Ectopic 82 bpm page 8 2 03/24 00:55:59 Patient Trigger Associated with Ventricular Ectopic 76 bpm page 9 3 03/24 05:28:08 Patient Trigger Associated with Ventricular Ectopic, Supraventricular Ectopic 71 bpm page 9 4 03/24 11:55:49 Patient Trigger Associated with Ventricular Couplet, Ventricular Ectopic 69 bpm page 10 5 03/24 20:28:37 Patient Trigger 79 bpm page 10 6 03/24 22:49:38 Patient Trigger Associated with Ventricular Ectopic 69 bpm page 11 7 03/25 08:41:32 Patient Trigger Associated with Ventricular Ectopic 71 bpm page 11 8 03/25 09:14:26 Patient Trigger Associated with Ventricular Ectopic 71 bpm page 12 9 03/25 10:02:55 Patient Trigger Associated with Ventricular Ectopic 82 bpm page 12 10 03/25 11:00:19 Patient Trigger Associated with Ventricular Couplet, Ventricular Ectopic 69 bpm page 13 11 03/25 11:30:15 Patient Trigger Associated with Ventricular Ectopic 72 bpm page 13 Study Quality: Study quality is good. Interpretation: *The predominant rhythm was Sinus with Frequent Ventricular Ectopy. *The Maximum Heart Rate recorded was 141 bpm, 03/25 05:09:05, the Minimum Heart Rate recorded was 51 bpm, 03/24 16:48:22, and the Average Heart Rate was 70 bpm. *There were 14,292 VE beats with a burden of 6 %. There were 3 occurrences of Ventricular Tachycardia with the Fastest episode 122 bpm, 03/23 14:10:58, and the Longest episode 3 beats, 03/23 18:02:07. *There were 310 SVE beats with a burden of <1 %. There were 5 occurrences of Supraventricular Tachycardia with the Fastest episode 141 bpm, 03/25 05:09:03, and the Longest episode 5 beats, 03/25 05:09:03. *Other rhythms in this study include: Ventricular Run. *There were 11 Patient Triggers, 1 unassociated with rhythm and 10 associated with ventricular ectopy. CONCLUSIONS: 1. Agree with findings from [employer] document. 2. The PDF report can be found in the [facility] patient chart. Electronically Signed By: Jerrell Rose Jr., M.D. 03/31/2024 11:30:31 PM CART DRIVER Electronically Signed By: Jerrell Rose Jr., M.D. 03/31/2024 11:30:31 PM CART DRIVER Procedure Note Jerrell Rose MD PhD - 03/31/2024 [facility], [address] [place] [address] HOLTER MONITOR Patient Name: EMMIE SCHILLING L : 1960 (63y 9m) Gender: M Study Date: 03/23/2024 08:12:43 AM Ht(Inch): 78 Wt(Lb): 226 BSA: 2.38 Tech: Location: [facility] Order Provider: AMY BETTS BMI: 26.11 Ref Provider: AMY BETTS - PROCEDURES: Holter Report: EXTENDED/SHELTER HOLTER PATCH (>48 HOURS UP TO 7 DAYS)[CAR79]. Hookup: Hookup Tech: Trupti Monsalve. Patient Instructions: Patient understood directions and use of equipment(Patient Hookup at Home) and patient given monitor in office during appointment, patientunderstands directions and use of equipment. Enrollment Period: 03/23/2024 08:12 - 03/25/2024 13:14. INDICATIONS: I49.3 Ventricular premature depolarization and R00.2 Palpitations. FINDINGS: Holter Data: Min Rate: 51 BPM Min Rate Timestamp: 2024-03-24 16:48:22 Max Rate: 141 BPM Max Rate Timestamp: 2024-03-25 05:09:05 Mean Rate: 70 BPM Singlets (PACs): 281 events Couplets (PACs): 5 events Total (SVE): 310 events Singlets (PVCs): 19787 events Couplets (PVCs): 315 events Total (VE): 68419 events Total beats: 030290 Protocol: Recording Duration (Ordered): 3d Recording Duration (Actual): 188814.98 Monitor Number: [id number] Total QRS: 291098 Date Recorded: 2024-03-23 08:12:43 Date Processed: 2024-03-23 08:12:43 Number of Diary entries: 11 Patient Triggers 1 03/23 08:17:58 Patient Trigger Associated with Ventricular Ectopic 82 bpm page 8 2 03/24 00:55:59 Patient Trigger Associated with Ventricular Ectopic 76 bpm page 9 3 03/24 05:28:08 Patient Trigger Associated with Ventricular Ectopic, Supraventricular Ectopic 71 bpm page 9 4 03/24 11:55:49 Patient Trigger Associated with Ventricular Couplet, Ventricular Ectopic 69 bpm page 10 5 03/24 20:28:37 Patient Trigger 79 bpm page 10 6 03/24 22:49:38 Patient Trigger Associated with Ventricular Ectopic 69 bpm page 11 7 03/25 08:41:32 Patient Trigger Associated with Ventricular Ectopic 71 bpm page 11 8 03/25 09:14:26 Patient Trigger Associated with Ventricular Ectopic 71 bpm page 12 9 03/25 10:02:55 Patient Trigger Associated with Ventricular Ectopic 82 bpm page 12 10 03/25 11:00:19 Patient Trigger Associated with Ventricular Couplet, Ventricular Ectopic 69 bpm page 13 11 03/25 11:30:15 Patient Trigger Associated with Ventricular Ectopic 72 bpm page 13 Study Quality: Study quality is good. Interpretation: *The predominant rhythm was Sinus with FrequentVentricular Ectopy. *The Maximum Heart Rate recorded was 141 bpm, 03/25 05:09:05, the MinimumHeart Rate recorded was 51 bpm, 03/24 16:48:22, and the Average Heart Rate was 70 bpm. *There were 14,292 VE beats with a burden of 6 %. There were 3 occurrencesof Ventricular Tachycardia with the Fastest episode 122 bpm, 03/23 14:10:58, and the Longest episode3 beats, 03/23 18:02:07. *There were 310 SVE beats with a burden of <1 %. There were 5 occurrencesof Supraventricular Tachycardia with the Fastest episode 141 bpm, 03/25 05:09:03, and theLongest episode 5 beats, 03/25 05:09:03. *Other rhythms in this study include: Ventricular Run. *There were 11 Patient Triggers, 1 unassociated with rhythm and 10associated with ventricular ectopy. CONCLUSIONS: 1. Agree with findings from [employer] document. 2. The PDF report can be found in the [facility] patient chart. Electronically Signed By: Jerrell Rose Jr., M.D. 03/31/2024 11:30:31 PM CART DRIVER Electronically Signed By: Jerrell Rose Jr., M.D. 03/31/2024 11:30:31 PM CART DRIVER Amy Betts MD [facility] PROCE JOSH Final Result from Last 3 Months Insurance [employer] TRADITIONAL ANTHEM ACCESS Member Subscriber Plan / Payer (Ef fective 2018-Present) Name:Emmie cShilling Relation to Subscriber:Self Name:SCHILLINGEMMIE L Payer ID:[id number] (NAIC) Group ID:[id number] (DO NOT USE) Type:[employer] Address: [address] CLAIMS CLAIMS CLAIMS Advance Directives For more information, please contact: [phone] * Full Code (Latest Code Status on File) Date Activated Date Inactivated Comments 10/03/2023 8:32 AM 10/04/2023 7:00 PM * Full Code Date Activated Date Inactivated Comments 08/14/2023 5:40 PM 08/15/2023 4:38 PM * Full Code Date Activated Date Inactivated Comments 04/21/2023 6:46 PM 04/24/2023 5:55 PM * Full Code Date Activated Date Inactivated Comments 12/15/2021 3:36 PM 12/15/2021 9:22 PM * Full Code Date Activated Date Inactivated Comments 11/07/2020 2:26 AM 11/07/2020 9:54 PM Care Teams Patent Prosecution Paralegal Relationship Specialty Start Date End Date Shadia Hartley NP [address] [place] [address] [place] [address] PCP - General Family Medicine 04/08/24 Alfredo Blas MD [address] [place] [address] [address] [place] [address] Consulting Physician Cardiology 10/19/17 Miscellaneous, Not In File 11/07/20
--- OUTSIDE RECORDS SUMMARY | 2024-06-07 09:06 | XMS_ITS | Clinical Summary ---
Author Organization [facility] Address [address] [place] [phone] Phone Care Team Providers Care Inspector [employer] Name Role Phone Kaveh Kc MD Primary Care Provider [phone] Allergies Active Allergy Reactions Criticality Noted Date Comments Azithromycin Hallucination Low 12/13/2016 Medications metoprolol tartrate (LOPRESSOR) 25 mg tablet Take 25 mg by mouth daily. Active naproxen (NAPROSYN) 500 mg tablet Take 1 Tablet (500 mg) by mouth 2 times daily with meals Po pc bid. 20 Tablet None 12/13/2016 Active HYDROcodone-cliff taminophen (NORCO) 5-325 mg tablet Take 1 Tablet by mouth every 4 hours as needed for Pain, Severe. Max Daily Amount: 6 Tablets 15 Tablet 12/13/2016 Active Social History Tobacco Use Types Packs/Day Years Used Date Smoking Tobacco: Former Cigarettes Q uit: 12/13/2014 Smokeless Tobacco: Never Alcohol Use Standard Drinks/Week Comments No 0 (1 standard drink = 0.6 oz pur e alcohol) Sex and Gender Information Value Date Recorded Sex Assigned at Not on file Legal Sex Male 12:05 PM CDT Gender Identity Not on file Sexual Orientation Not on file Last Filed Vital Signs Vital Sign Reading Time Taken Comments Blood Pressure 120/71 12/13/2016 3:00 PM CDT Pulse 61 12/13/2016 2:00 PM CDT Temperature - - Respiratory Rate 14 12/13/2016 3:00 PM CDT Oxygen Saturation 97% 12/13/2016 3:00 PM CDT Inhaled Oxygen Concentration - - Weight 88.5 kg (195 lb) 12/13/2016 12:16 PM CDT Height 185.4 cm (6' 1 ) 12/13/2016 12:16 PM CDT Body Mass Index 25.73 12/13/2016 12:16 PM CDT Plan of Treatment Health Maintenance Due Date Last Done Comments DTAP/TDAP/TD VACCINES (1 - Tdap) 1980 COLORECTAL SCREENING 2006 Colorectal Cancer Screening 2006 FIT-DNA Q 3 years 2006 FIT/FOBT Q 1 year 2006 Flex Sig/CT Colonography Q 5 years 2006 ZOSTER VACCINE (1 of 2) 06/18/2011 INFLUENZA VACCINE (#1) 2023 RSV VACCINE (60+ or ) (1 - 1-dose 75+ series) 2036 Care Teams Inspector [employer] Relationship Specialty Start Date End Date Kaveh Kc MD [address] [place] [id number] PCP - General Family Practice 12/13/16
--- OUTSIDE RECORDS SUMMARY | 2024-06-07 09:06 | XMS_ITS | Data Portability ---
Author Organization [place] [facility], Main Office Address [address] [place] [address] Assessment Encounter Date Assessment Date Assessment LastModified by Organization Details LastModified Time 04/28/2023 04/28/2023 I have reconciled the patient's medications post their discharge from inpatient facility. Not available 04/28/2023 16:05:06 Plan of Treatment Reminders Order Date Submit Date Provider Last Modified By Organization Details Last Modified Time Details Appointments Follow Up 30 2024 09:00A Eyal Hartley NP Not available Not available Not available Lab drug of abuse panel, urine 2024 025 [facility], [address] [facility], [place], [address], 04/24/2024 08:17:57 vitamin D, 25-hydrox y, total, serum 2024 025 [facility], [address] [place], [address], 04/18/2024 17:33:12 PSA, serum or plasma 2024 025 [facility], [address] [place], [address], 05/15/2024 10:53:35 noninvasi ve colorecta l cancer DNA + occult blood screening , QL, stool 2024 025 [email or web address] (Cologuard Orders Only), [address], [address], [place], [address], 04/24/2024 08:18:06 CBC w/ auto diff 2024 025 [facility], [address] [place], [address], 05/15/2024 10:53:34 lipid panel, serum 2024 025 [facility], [address] [place], [address], 05/15/2024 10:53:35 HbA1c (hemoglob in A1c), blood 2024 025 [facility], [address] [place], [address], 05/15/2024 10:53:34 CMP, serum or plasma 2024 025 [facility], [address] [place], [address], 04/24/2024 08:17:57 microalbu min, urine 2024 025 [facility], [address] [place], [address], 05/15/2024 10:53:34 renal function panel, serum 2024 025 [facility], [address] [place], [address], 04/24/2024 08:17:57 drug of abuse panel, urine 2023 024 [facility] (Lab), [address] [place], [address], 09/05/2023 09:53:54 PSA, serum or plasma 2023 024 Not available 03/06/2023 10:20:23 HbA1c (hemoglob in A1c), blood 2023 024 [email or web address] Not available 03/06/2023 10:20:45 microalbu min, urine 2023 024 [email or web address] Not available 03/06/2023 10:21:44 CBC w/ auto diff 2023 024 [email or web address] Not available 03/06/2023 10:22:05 BMP, serum or plasma 2023 024 [email or web address] Not available 03/06/2023 10:22:28 lipid panel, serum 2023 024 [email or web address] Not available 03/06/2023 10:23:27 hepatic function panel, serum 2023 024 [email or web address] Not available 03/06/2023 10:23:45 Referral dermatolo gist referral - Please call patient to schedule an appointme nt. Thank you. 2024 025 RODRICK Saba MD (Dermatology) , [address] [facility] , [place], [address], 04/19/2024 11:52:00 gastroent erologist referral - The patient is not enrolled in [facility] so no referral is required for the requested services. Please call patient to schedule appointme nt. [address] [facility], [address], [address], [address], 05/01/2023 13:58:44 gastroent erologist referral - This patient is not enrolled in [facility] so no referral is required for the requested services. Please call patient to schedule appointme nt. [address] [facility], [address], [address], [place], [address], 04/03/2023 16:16:16 Procedures None recorded. Surgeries None recorded. Imaging None recorded. Medication Orders pantopraz ole 40 mg tablet,de layed release 2024 025 [id number], [address], [place], [place], [id number], 04/17/2024 08:56:36 gabapenti n 300 mg capsule 2024 [facility] #[id number], [address], [place], [place], [id number], 04/17/2024 08:56:40 alprazola m 1 mg tablet 2023 [facility] #[id number], [address], [place], [place], [id number], 03/06/2023 09:57:24 nystatin- triamcino lone 100,000 unit/g-0. 1 % topical cream 2023 [facility] #[id number], [address], [place], [place], [id number], 03/06/2023 09:49:50 Patient TargetsNo targets recorded. Patient Instructions Encounter Date Encounter Id Patient Instructions Last Modified By Organization Details Last Modified Time 04/28/2023 [id number] Thank you for your visit to our office today. We would like to request that you reach out to your referring or previous provider and request that they send us a Summary of Care in electronic form, so that we may have it on file in your medical record. At your visit, we had the medical records we needed to provide you with the best possible care; however, for insurance purposes, an electronic Summary of Care is beneficial. Thank you for your assistance in obtaining this information and we look forward to providing continued care to you. Please review your medication list from the Summary of Care for this visit. If there are any differences from what you are currently taking at home, please call us to discuss. Not available 04/28/2023 16:05:06 Homebound Status : {{Patient has an inability to leave the home without a taxing effort and assistance from another person Does not meet homebound status}} Required Home Health Services: {{none long term, physical therapy, occupational therapy long term, physical therapy long term}} Durable Medical Equipment needed: {{cane walker wal ker with seat manual wheelchair bedsid e commode oxygen}} Billing Guidelines CPT code 86108- Transitional Care Management services with moderate medical decision complexity (pcox-nr-hwzu visit within 14 days of discharge). CPT code 49586- Transitional Care Management services with high medical decision complexity (omov-tn-qxif visit within 7 days of discharge). Not available 04/28/2023 16:05:06 Reason for Referral Employment Trainer Referral for Rivera's esophagus This patient is not enrolled in [facility] so no referral is required for the requested services. Please call patient to schedule appointment. Referring Physician: Gayle Bryant [facility], Encounter Date: 03/06/2023 Employment Trainer Referral for Screening for malignant neoplasm of colon The patient is not enrolled in [facility] so no referral is required for the requested services. Please call patient to schedule appointment. Referring Physician: Gayle Bryant [facility], Encounter Date: 03/06/2023 Music Composer Referral for A ctinic keratosis Please call patient to schedule an appointment. Thank you. Referring Physician: Shadia Hartley [facility], Encounter Date: 04/17/2024 Results Created Date Observation Date Name Description Value Unit Range Abnormal Flag Note LastModifiedBy Organization Detail LastModifiedTime 03/06/19 24 03/06/2023 CBC/C OMPLE TE BLD COUNT W/DIF F white blood cells 5.9 x10'3 /uL 4.2-10 .8 Not Available [facility] (Lab) [address] [place], [address], 03/06/2023 19:26:19 03/06/19 24 03/06/2023 CBC/C OMPLE TE BLD COUNT W/DIF F red blood cells 4.35 x10'6 /uL 4.10-5 .80 Not Available [facility] (Lab) [address] [place], [address], 03/06/2023 19:26:19 03/06/19 24 03/06/2023 CBC/C OMPLE TE BLD COUNT W/DIF F hemoglobin 13.7 g/dL 13.2-1 7.0 Not Available [facility] (Lab) [address] [place], [address], 03/06/2023 19:26:19 03/06/19 24 03/06/2023 CBC/C OMPLE TE BLD COUNT W/DIF F hematocrit 40.7 % 39.3-5 0.0 Not Available [facility] (Lab) [address] [place], [address], 03/06/2023 19:26:19 03/06/19 24 03/06/2023 CBC/C OMPLE TE BLD COUNT W/DIF F mean red cell volume 93.6 fL 80.0-9 7.0 Not Available [facility] (Lab) [address] [place], [address], 03/06/2023 19:26:19 03/06/19 24 03/06/2023 CBC/C OMPLE TE BLD COUNT W/DIF F mean red cell hemoglobin 31.5 pg 27.0-3 3.0 Not Available [facility] (Lab) [address] [place], [address], 03/06/2023 19:26:19 03/06/19 24 03/06/2023 CBC/C OMPLE TE BLD COUNT W/DIF F mean RBC HGB concentratio n 33.7 g/dL 31.0-3 6.0 Not Available [facility] (Lab) [address] [place], [address], 03/06/2023 19:26:19 03/06/19 24 03/06/2023 CBC/C OMPLE TE BLD COUNT W/DIF F red cell distribution width 12.8 % 11.8-1 5.5 Not Available [facility] (Lab) [address] [place], [address], 03/06/2023 19:26:19 03/06/19 24 03/06/2023 CBC/C OMPLE TE BLD COUNT W/DIF F platelets 240 x10'3 /uL 150-40 0 Not Available [facility] (Lab) [address] [place], [address], 03/06/2023 19:26:19 03/06/19 24 03/06/2023 CBC/C OMPLE TE BLD COUNT W/DIF F mean platelet volume 11.1 fL 9.0-12 .4 Not Available [facility] (Lab) [address] [place], [address], 03/06/2023 19:26:19 03/06/19 24 03/06/2023 CBC/C OMPLE TE BLD COUNT W/DIF F neutrophils 64.1 % 39.0-7 2.0 Not Available [facility] (Lab) [address] [place], [address], 03/06/2023 19:26:19 03/06/19 24 03/06/2023 CBC/C OMPLE TE BLD COUNT W/DIF F lymphocytes 24.6 % 16.0-4 7.0 Not Available [facility] (Lab) [address] [place], [address], 03/06/2023 19:26:19 03/06/19 24 03/06/2023 CBC/C OMPLE TE BLD COUNT W/DIF F monocytes 8.0 % 5.0-12 .0 Not Available [facility] (Lab) [address] [place], [address], 03/06/2023 19:26:19 03/06/19 24 03/06/2023 CBC/C OMPLE TE BLD COUNT W/DIF F eosinophils 2.2 % 1.0-7. 0 Not Available [facility] (Lab) [address] [place], [address], 03/06/2023 19:26:19 03/06/19 24 03/06/2023 CBC/C OMPLE TE BLD COUNT W/DIF F basophils 0.9 % 0.0-2. 0 Not Available [facility] (Lab) [address] [place], [address], 03/06/2023 19:26:19 03/06/19 24 03/06/2023 CBC/C OMPLE TE BLD COUNT W/DIF F immature granulocytes 0.2 % 0.00-0 .50 Not Available [facility] (Lab) [address] [place], [address], 03/06/2023 19:26:19 03/06/19 24 03/06/2023 CBC/C OMPLE TE BLD COUNT W/DIF F neutrophils, absolute count 3.76 x10'3 /uL 1.5-8. 0 Not Available [facility] (Lab) [address] [place], [address], 03/06/2023 19:26:19 03/06/19 24 03/06/2023 CBC/C OMPLE TE BLD COUNT W/DIF F lymphocytes, absolute count 1.44 x10'3 /uL 1.07-3 .43 Not Available [facility] (Lab) [address] [place], [address], 03/06/2023 19:26:19 03/06/19 24 03/06/2023 CBC/C OMPLE TE BLD COUNT W/DIF F monocytes, absolute count 0.47 x10'3 /uL 0.29-0 .99 Not Available [facility] (Lab) [address] [place], [address], 03/06/2023 19:26:19 03/06/19 24 03/06/2023 CBC/C OMPLE TE BLD COUNT W/DIF F eosinophils, absolute count 0.13 x10'3 /uL 0.02-0 .53 Not Available [facility] (Lab) [address] [place], [address], 03/06/2023 19:26:19 03/06/19 24 03/06/2023 CBC/C OMPLE TE BLD COUNT W/DIF F basophils, absolute count 0.05 x10'3 /uL 0.01-0 .08 Not Available [facility] (Lab) [address] [place], [address], 03/06/2023 19:26:19 03/06/19 24 03/06/2023 CBC/C OMPLE TE BLD COUNT W/DIF F immature granulocytes ,absolute 0.01 x10'3 /uL 0.00-0 .05 Not Available [facility] (Lab) [address] [place], [address], 03/06/2023 19:26:19 03/06/19 24 03/06/2023 CBC/C OMPLE TE BLD COUNT W/DIF F nucleated red blood cells 0.0 % -0 Not Available [facility] (Lab) [address] [place], [address], 03/06/2023 19:26:19 03/06/19 24 03/06/2023 CBC/C OMPLE TE BLD COUNT W/DIF F NRBC# 0.00 x10'3 /uL Not Available [facility] (Lab) [address] [place], [address], 03/06/2023 19:26:19 03/06/19 24 03/06/2023 BASIC METAB OLIC PANEL sodium 140 mmol/ L 137-14 5 Not Available [facility] (Lab) [address] [place], [address], 03/06/2023 20:54:27 03/06/19 24 03/06/2023 BASIC METAB OLIC PANEL potassium 4.2 mmol/ L 3.5-5. 1 Not Available [facility] (Lab) [address] [place], [address], 03/06/2023 20:54:27 03/06/19 24 03/06/2023 BASIC METAB OLIC PANEL chloride 108 mmol/ L 98-107 high Not Available [facility] (Lab) [address] [place], [address], 03/06/2023 20:54:27 03/06/19 24 03/06/2023 BASIC METAB OLIC PANEL carbon dioxide 25 mmol/ L 22-30 Not Available [facility] (Lab) [address] [place], [address], 03/06/2023 20:54:27 03/06/19 24 03/06/2023 BASIC METAB OLIC PANEL anion gap 11.2 mmol/ L 14-22 low Not Available [facility] (Lab) [address] [place], [address], 03/06/2023 20:54:27 03/06/19 24 03/06/2023 BASIC METAB OLIC PANEL glucose 130 mg/dL 70-99 high Not Available [facility] (Lab) [address] [place], [address], 03/06/2023 20:54:27 03/06/19 24 03/06/2023 BASIC METAB OLIC PANEL BUN 17 mg/dL 8-19 Not Available [facility] (Lab) [address] [place], [address], 03/06/2023 20:54:27 03/06/19 24 03/06/2023 BASIC METAB OLIC PANEL creatinine 1.51 mg/dL 0.66-1 .25 high Not Available [facility] (Lab) [address] [place], [address], 03/06/2023 20:54:27 03/06/19 24 03/06/2023 BASIC METAB OLIC PANEL GFR 47 Refer ence Range : [place] ge GFR Healt hy Adult : >60 mL/mi n/1.7 3 m2 Chron ic Kidne y Disea se: 15-60 mL/mi n/1.7 3 m2 Kidne y Failu re: <15/m L/min /1.73 m2 www.n iddk. nih.g ov The MDRD study equat ion has not been valid ated in child bar <18 years of age; pregn ant women ; the elder ly >85 years of age; or in some racia l or ethni c subgr oups, such as Hispa nics. Outsi de the valid ated lizbet eters , estim ated GFR is less accur ate, requi ring clini kaya judgm ent on a case- by-ca se basis . Clini kaya inter preta tion for other races and ages must be made by the clini cassandra. The MDRD study equat ion has not been valid ated for the evalu ation of serum creat inine relat ed to nutri pato l statu s or medic ation usage . For perso ns <18 years of age, a pedia tric GFR calcu lator is avail able on the [facility] websi te: https ://lissy w.kid sheri.o rg/pr ofess ional s/kdo qi/gf r_cal culat or Not Available [facility] (Lab) [address] [place], [address], 03/06/2023 20:54:27 03/06/19 24 03/06/2023 BASIC METAB OLIC PANEL calcium 9.3 mg/dL 8.4-10 .2 Not Available [facility] (Lab) [address] [place], [address], 03/06/2023 20:54:27 03/06/19 24 03/06/2023 LIPID PANEL cholesterol 172 mg/dL 140-19 9 NIH INO NSUS RECOM MENDA TION FOR FABIEN STERO L: ADULT CHILD LOW RISK: <200 <170 BORDE RLINE : <200- 239 ----- HIGH RISK: >240 >200 Not Available [facility] (Lab) [address] [place], [address], 03/06/2023 20:54:29 03/06/19 24 03/06/2023 LIPID PANEL triglyceride s 94 mg/dL 0-150 NIH INO NSUS REPOR T RECOM MENDA TION FOR TRIGL YCERI QASIM: ADULT CHILD LOW RISK: <150 ----- BODER LINE: 150-1 99 ----- HIGH RISK: >200 ----- Not Available [facility] (Lab) [address] [place], [address], 03/06/2023 20:54:29 03/06/19 24 03/06/2023 LIPID PANEL HDL cholesterol 34 mg/dL 40- low Not Available [facility] (Lab) [address] [place], [address], 03/06/2023 20:54:29 03/06/19 24 03/06/2023 LIPID PANEL LDL cholesterol, calculated 119 mg/dL 0-130 NIH INO NSUS REPOR T RECOM MENDA TIONS FOR LDL: ADULT CHILD LOW RISK <130 <110 (OPTI MAL LDL) <100 ----- BORDE RLINE : 130-1 59 ----- HIGH RISK: >160 >130 A TRIGL YCERI DE RESUL T >400 INVAL IDATE S THE CALCU LATIO N FOR LDL FRACT IONAT ION - THE LDL RESUL T WILL NOT BE REPOR ELENITA. Not Available [facility] (Lab) [address] [place], [address], 03/06/2023 20:54:29 03/06/19 24 03/06/2023 HEPAT IC/LI NITA PANEL alkaline phosphatase 58 U/L 38-126 Not Available [facility] (Lab) [address] [place], [address], 03/06/2023 20:54:35 03/06/19 24 03/06/2023 HEPAT IC/LI NITA PANEL alanine aminotransfe rase 16 U/L 0-50 Not Available [facility] (Lab) [address] [place], [address], 03/06/2023 20:54:35 03/06/19 24 03/06/2023 HEPAT IC/LI NITA PANEL aspartate aminotransfe rase 19 U/L 15-46 Not Available [facility] (Lab) [address] [place], [address], 03/06/2023 20:54:35 03/06/19 24 03/06/2023 HEPAT IC/LI NITA PANEL bilirubin, total 0.70 mg/dL 0.20-1 .30 Not Available [facility] (Lab) [address] [place], [address], 03/06/2023 20:54:35 03/06/19 24 03/06/2023 HEPAT IC/LI NITA PANEL bilirubin, conjugated (direct) 0.00 mg/dL 0.00-0 .30 Not Available [facility] (Lab) [address] [place], [address], 03/06/2023 20:54:35 03/06/19 24 03/06/2023 HEPAT IC/LI NITA PANEL biliurubin,u ncong. (indirect) 0.50 mg/dL 0.00-1 .1 Not Available [facility] (Lab) [address] [place], [address], 03/06/2023 20:54:35 03/06/19 24 03/06/2023 HEPAT IC/LI NITA PANEL total protein 7.5 g/dL 6.3-8. 2 Not Available [facility] (Lab) [address] [place], [address], 03/06/2023 20:54:35 03/06/19 24 03/06/2023 HEPAT IC/LI NITA PANEL albumin 4.0 g/dL 3.4-5. 0 Not Available [facility] (Lab) [address] [place], [address], 03/06/2023 20:54:35 03/06/19 24 03/06/2023 HEPAT IC/LI NITA PANEL globulin 3.5 g/dL 2.6-4. 2 Not Available [facility] (Lab) [address] [place], [address], 03/06/2023 20:54:35 03/06/19 24 03/06/2023 HEPAT IC/LI NITA PANEL A/G ratio 1.1 ratio 1.0-2. 0 Not Available [facility] (Lab) [address] [place], [address], 03/06/2023 20:54:35 03/06/19 24 03/06/2023 HEMOG LOBIN A1C HA1C 6.1 % 4.0-6. 0 high Diabe carole Scree isabel Crite marisol: <5.7% Consi stent with absen ce of diabe carole 5.7-6 .4% Consi stent with incre ased risk for diabe carole (pred iabet es) >OR=6 .5% Consi stent with diabe carole REFER ENCE: Diabe carole Care 2016, 39(Servin ppl.1 ):s13 -s22 Not Available Not Available 03/06/2023 21:01:57 03/06/19 24 03/06/2023 PSA, TOTAL PSA, total 0.69 NG/mL 0.00-4 .00 Not Available Not Available 03/06/2023 21:26:39 03/06/19 24 03/06/2023 MICRO ALBUM IN RANDO M URINE microalbumin , urine 52.1 mg/L 0.0-16 .6 high Not Available [facility] (Lab) [address] [place], [address], 03/06/2023 22:20:23 04/17/19 25 04/19/2024 DRUG MONIT OR, PANEL 3, SCREE N, URINE amphetamines NEGATI VE NG/mL <500 See Note A See Note A Not Available [employer] [facility] [address], [place], [address], 04/19/2024 23:23:12 02/26/20 25 04/19/2024 DRUG MONIT OR, PANEL 3, SCREE N, URINE benzodiazepi andry NEGATI VE NG/mL <100 See Note A See Note A Not Available [address], [place], [address], 04/19/2024 23:23:12 04/17/19 25 04/19/2024 DRUG MONIT OR, PANEL 3, SCREE N, URINE cocaine metabolite NEGATI VE NG/mL <150 See Note A See Note A Not Available [address], [place], [address], 04/19/2024 23:23:12 04/17/19 25 04/19/2024 DRUG MONIT OR, PANEL 3, SCREE N, URINE marijuana metabolite NEGATI VE NG/mL <20 See Note A See Note A Not Available [employer] [address], [place], [address], 04/19/2024 23:23:12 04/17/19 25 04/19/2024 DRUG MONIT OR, PANEL 3, SCREE N, URINE opiates NEGATI VE NG/mL <100 See Note A See Note A Not Available [employer] [address], [place], [address], 04/19/2024 23:23:12 04/17/19 25 04/19/2024 DRUG MONIT OR, PANEL 3, SCREE N, URINE oxycodone NEGATI VE NG/mL <100 See Note A See Note A Not Available [employer] [address], [place], [address], 04/19/2024 23:23:12 04/17/19 25 04/19/2024 DRUG MONIT OR, PANEL 3, SCREE N, URINE creatinine 168.3 mg/dL > or = 20.0 Not Available [address], [place], [address], 04/19/2024 23:23:12 04/17/19 25 04/19/2024 DRUG MONIT OR, PANEL 3, SCREE N, URINE pH 5.1 4.5-9. 0 Not Available [facility] [address] , [place], [address], 04/19/2024 23:23:12 04/17/19 25 04/19/2024 DRUG MONIT OR, PANEL 3, SCREE N, URINE oxidant NEGATI VE mcg/m L <200 Not Available [address] , [place], [address], 04/19/2024 23:23:12 04/17/19 25 04/19/2024 DRUG MONIT ORING TEMPL ATE notes and comments This drug testi ng is for medic al treat ment only. Pola sis was perfo rmed as non-f orens ic testi ng and these resul ts shoul d be used only by healt talya provi ders to rende r diagn osis or treat ment, or to monit or progr ess of medic al condi tions . Note A: The resul ts are presu mptiv e; based only on scree isabel metho ds, and they have not been confi rmed by a defin itive rafaela burns. [facility] Pro[facility] ders needi ng Inter preta tion consuelo tance , pleas e conta ct us at 1.877 .40.R XTOX (1.87 [phone] .[phone] ) M-F, 8am to 10pm EST Not Available [address], [place], [address], 04/19/2024 23:23:13 04/27/19 25 04/26/2024 COLOG UARD cologuard result reportable NEGATI VE negati ve normal NEGAT NICOL TEST RESUL T. A negat nicol Colog uard resul t indic ates a low likel ihood that a color ectal cance r (CRC) or advan jon adeno ma (liliana omato us polyp s with more advan jon pre-m align ant featu res) is prese nt. The chanc e that a perso n with a negat nicol Colog uard test has a color ectal cance r is less than 1 in 1500 (nega tive predi ctive value >99.9 %) or has an advan jon adeno ma is less than 5.3% (nega tive predi ctive value 94.7% ). These data are based on a prosp ectiv e cross -sect ional study of 10,00 0 indiv idual s at [place] [facility] risk for color ectal cance r who were scree priya with both Colog uard and colon oscop y. (Impe suzanne Ruff et al, N Engl J Med 2014; 370(1 4):12 86-12 97) The dae l value (refe rence range ) for this assay is negat nicol. COLOG UARD RE-SC REENI NG RECOM MENDA TION: Perio dic color ectal cance r scree isabel is an impor tant part of preve ntive healt hcare for asymp tomat ic indiv idual s at [place] [facility] risk for color ectal cance r. Follo wing a negat nicol Colog uard resul t, the Ameri can Cance r Socie ty and U.S. Multi -Soci ety Task Force scree isabel guide lines recom mend a Colog uard re-sc yayo parsons inter lillian of 3 years . Refer ences : Ameri can Cance r Socie ty Guide line for Color ectal Cance r Scree isabel: https ://lissy w.can cer.o rg/ca ncer/ colon -rect al-ca ncer/ detec tion- diagn osis- stagi ng/ac s-rec ommen datio ns.ht ml.; Ryan DARLING, Cyn burns CR, Ermelinda ChanK, Color ectal Cance r Scree isabel: Recom menda tions for Physi cians and Patie nts from the U.S. Multi -Soci ety Task Force on Color ectal Cance r Scree isabel , Josh figueroa y 2017; 112:1 016-1 030. TEST DESCR IPTIO N: [place] site algor ithmi c pola sis of stool DNA-b wild cruz with hemog lobin immun oassa y. Quant itati ve value s of indiv idual bioma rkers are not repor table and are not assoc iated with indiv idual bioma rker resul t refer ence range s. Colog uard is inten ded for color ectal cance r scree isabel of adult s of eithe r sex, 45 years or older , who are at [facility] for color ectal cance r (CRC) . Colog uard has been appro jim for use by the U.S. FDA. The perfo rmanc e of Colog uard was estab lishe d in a cross secti onal study of [facility] adult s aged 50-84 . Colog uard perfo rmanc e in patie nts ages 45 to 49 years was estim ated by sub-g roup pola sis of near- age group s. Colon oscop ies perfo rmed for a posit nicol resul t may find as the most clini saira signi fican t lesio n: color ectal cance r [4.0% ], advan jon adeno ma (incl uding sessi le barak elneita polyp s great er than or equal to 1cm diame ter) [20%] or non- advan jon adeno ma [31%] ; or no color ectal neopl michaela [45%] . These estim ates are deriv ed from a prosp ectiv e cross -sect ional scree isabel study of 10,00 0 indiv idual s at [facility] risk for color ectal cance r who were scree priya with both Colog uard and colon oscop y. (Isaias Ruff et al, N Engl J Med 2014; 370(1 4):12 86-12 97.) Colog uard may produ ce a false negat nicol or false posit nicol resul t (no color ectal cance r or preca ncero us polyp prese nt at colon oscop y follo w up). A negat nicol Colog uard test resul t does not guara ntee the absen ce of CRC or advan jon adeno ma (pre- cance r). The curre nt Colog uard scree isabel inter lillian is every 3 years . (Shaila Doshi r Socie ty and [place] Multi -Soci ety Task Force ). Colog uard perfo rmanc e data in a 10,00 0 patie nt pivot al study using colon oscop y as the refer ence metho d can be acces sed at the follo wing locat ion: www.e xactl abs.c om/re sults . Addit ional descr iptio n of the Colog uard test proce ss, warni ngs and preca ution s can be found at www.c ologu shannan.c om. Not Available [facility] (Cologuard Orders Only) [address], [place], [address], 04/30/2024 14:58:30 07/31/19 24 07/31/2023 CT, angio gram, chest , w/o contr ast No observ ation record ed. [facility] [address], [place], [address], 08/09/2023 09:40:02 Result Notes None recorded. Problems Name Problem SNOMED Code Status Onset Date Resolution Date Notes Provider Name and Address Organization Details Recorded Time Deep venous thrombosis 137688907 Active 2022 Not Available [facility] 3 22:20:47 Mitral valve prolapse 473133624 Active Not Available [facility] 3 22:20:47 Coronary arterioscl erosis 18419892 Active 2022 Not Available [facility] 3 22:20:47 Essential hypertensi on 31267293 Active Not Available [facility] 3 22:20:47 Sleep apnea 49894390 Active Not Available [facility] 3 22:20:47 Erectile dysfunctio n 222202195 Active 2022 Not Available [facility] 3 22:20:47 Lower urinary tract symptoms due to benign prostatic hypertroph y 2632847278721 1 Active 2022 Not Available [facility] 3 22:20:47 Diabetes mellitus 20726542 Active 2022 Not Available [facility] 3 22:20:47 Anxiety 00579015 Active 2022 Not Available [facility] 3 22:20:47 Chronic obstructiv e pulmonary disease 75220322 Active 2022 Not Available [facility] 3 22:20:47 Obstructiv e sleep apnea syndrome 76230019 Active 2022 Not Available [facility] 3 22:20:47 Pain of left ankle joint 5494645944777 9103 Active 2022 Not Available [facility] 3 22:20:47 Type 2 diabetes mellitus without complicati on 029008900 Active 2022 Not Available [facility] 3 22:20:47 Otalgia of left ear 2057400614 Active 2022 Not Available [facility] 3 22:20:47 Eczema of external auditory canal 73184044 Active 2022 Not Available [facility] 3 22:20:47 Rivera's esophagus 801407178 Active 2023 Gayle Bryant MD [address], [address], [place], [address] , [employer] [facility] 4 09:39:20 Serum creatinine above reference range 197952186 Active 2023 Gayle Bryant MD [address], [address], [place], [address] , [employer] [facility] [employer] [facility] 4 13:39:26 Microalbum inuria 632150889 Active 2023 Gayle Bryant MD [address], [address], [place], [address] , [employer] [facility] 4 13:39:30 Nocturia 555586843 Active 2023 Gayle Bryant MD [address], [address], [place], [address] , [employer] [facility] [employer] [facility] 4 17:54:50 Ventricula r premature complex 822189280 Active 2023 MIQUEL Andre-C [address], [address], [place], [address] , [employer] 4 16:20:51 Atelectasi s 61218164 Active 2023 MIQUEL Andre-C [address], [address], [place], [address] , [employer] 4 09:55:47 Actinic keratosis 532879364 Active 2024 CHASE Carrizales [address], [address], [place], [address] , [employer] 5 08:48:59 Muscle weakness 31814964 Active 2024 CHASE Carrizales [address], [place], [address] , [employer] 5 08:52:54 Gastroesop hageal reflux disease without esophagiti s 254690309 Active 2024 CHASE Carrizales [address], [place], [address] , [employer] 5 08:55:33 Pain of left testicle 0946752326104 9100 Active 2024 CHASE Carrizales [address], [place], [address] , [employer] 5 15:31:46 Problem Notes None recorded. Procedures Surgical History Date Name Laterality Status Provider Name and Address Organization Details Recorded Time 4 Transitional_Ca re_Management completed MIQUEL Andre-C [address], [place], [address], [employer] 04/28/2023 16:25:21 4 EGD completed Lauren Bennett LPN [facility] [employer] 04/18/2023 10:00:02 colonoscopy completed Gayle Bryant MD [address] [facility], [address], [place], [address], [facility] [employer] [facility] 03/06/2023 18:05:08 Imaging Results Imaging Date Name Status LastModified by Organiz ation Details LastModified Time 07/31/2023 CT, angiogram, chest, w/o contrast completed [address], [place], [address], 08/09/2023 09:40:02 Procedure Notes None recorded. Medical Equipment None Reported. Allergies Allergen ID Allergen Name Allergen Category Reaction Reaction Severity Criticality Documentation Date Start Date Code Code System Note Provider Name and Address Organization Details Recorded Time 68397 azithromy brannon medicatio n Not available Not available Not available 04/20/2022 19263 RxNorm Not Available [facility] 15:40:56 Medications Name Sig Start Date Stop Date Status Note LastModified by Organization Details LastModified Time amoxicillin 500 mg capsule 03/06 completed Not Available Not Available Not Available atorvastati n 20 mg tablet TAKE 1 TABLET BY MOUTH ONCE DAILY 04/17 completed Not Available Not Available Not Available sildenafil 50 mg tablet Take 1 tablet every day by oral route as needed. active Not Available Not Available No t Available alprazolam 1 mg tablet 1 po qday prn stress active Not Available Not Available No t Available metoprolol succinate ER 50 mg tablet,exte nded release 24 hr 04/17 completed Not Available Not Available Not Available lisinopril 20 mg tablet 04/07 completed Not Available Not Available Not Available prednisone 20 mg tablet 04/07 completed Not Available Not Available Not Available metoprolol succinate ER 100 mg tablet,exte nded release 24 hr TAKE 1 TABLET BY MOUTH TWICE DAILY 03/06 completed Not Available Not Available Not Available sulfamethox azole 800 mg-trimetho prim 160 mg tablet 04/07 completed Not Available Not Available Not Available sotalol 120 mg tablet 04/17 completed Not Available Not Available Not Available amoxicillin 500 mg tablet 03/06 completed Not Available Not Available Not Available carvedilol 3.125 mg tablet active Not Available Not Available Not Available alprazolam 0.25 mg tablet 1 po qday prn 05/19 completed Not Available Not Available Not Available magnesium oxide 400 mg (241.3 mg magnesium) tablet 04/07 completed Not Available Not Available Not Available tamsulosin 0.4 mg capsule Take 1 capsule every day by oral route. 04/17 completed Not Available Not Available Not Available cephalexin 500 mg capsule 04/07 completed Not Available Not Available Not Available pantoprazol e 40 mg tablet,hosea yed release 1 po bid active Not Available Not Available Not Available losartan 25 mg tablet active Not Available Not Available No t Available nystatin-tr iamcinolone 100,000 unit/g-0.1 % topical cream APPLY TO THE AFFECTED AREA(S) BY TOPICAL ROUTE 2 TIMES PER DAY IN THEMORNIN G AND EVENING active Not Available Not Available No t Available gabapentin 300 mg capsule Take 1 capsule twice a day by oral route. 2024 active Not Available Not Available Not Avai lable furosemide 20 mg tablet active Not Available Not Available Not Available albuterol sulfate HFA 90 mcg/actuati on aerosol inhaler INHALE 2 PUFFS BY MOUTH EVERY 6 HOURS NEEDED FOR WHEEZING active Not Available Not Available No t Available diltiazem 30 mg tablet prn 04/17 completed Not Available Not Available Not Available lisinopril 40 mg tablet TAKE 1 TABLET BY MOUTH IN THE EVENING 04/07 completed Not Available Not Available Not Available fluticasone propionate 50 mcg/actuati on nasal spray,suspe nsion active Not Available Not Available Not Available metformin ER 500 mg tablet,exte nded release 24 hr TAKE 1 TABLET BY MOUTH EVERY DAY 04/17 completed Not Available Not Available Not Available clotrimazol e 1 % topical cream active Not Available Not Available Not Available mometasone 0.1 % topical cream APPLY A THIN LAYER TO THE AFFECTED AREA(S) BY TOPICAL ROUTE ONCE DAILY active Not Available Not Available No t Available amoxicillin 875 mg-potassiu m clavulanate 125 mg tablet 04/17 completed Not Available Not Available Not Available neomycin-po lymyxin-hyd rocort 3.5 mg-10,000 unit/mL-1 % ear drops,susp 04/07 completed Not Available Not Available Not Available metoprolol tartrate 25 mg tablet TAKE ONE TABLET BY MOUTH TWICE DAILY 04/07 completed Not Available Not Available Not Available metformin ER 500 mg 24 hr tablet,exte nded release (gastric retention) Take 1 tablet every day by oral route. 03/06 completed Not Available Not Available Not Available Eliquis 5 mg tablet TAKE 1 TABLET BY MOUTH TWICE DAILY 04/07 completed Not Available Not Available Not Available Farxiga 5 mg tablet TAKE 1 TABLET BY MOUTH EVERY DAY active Not Available Not Available No t Available Jardiance 10 mg tablet active Not Available Not Available Not Available Jardiance 25 mg tablet Take 1 tablet every day by oral route. 2024 active Not Available Not Available Not Avai lable Entresto 49 mg-51 mg tablet 08/18 completed Not Available Not Available Not Available Entresto 24 mg-26 mg tablet 1 po qday 04/17 completed Not Available Not Available Not Available Vitals Date Recorded Body height Body temperature Heart rate Oxygen saturation Oxygen saturation in Arterial blood by Pulse oximetry Systolic blood pressure Diastolic blood pressure Provider Name and Address Organization Details Last Updated DateTime 4 185.42 cm 97.6 [degF] 67 /min 98 % 98 % 158 mm[Hg] 98 mm[Hg] Soledad Monsalve RN [facility] [employer] 4 09:14:36 Date Recorded Body mass index (BMI) Body weight Provider Name and Address Organization Details Last Updated DateTime 03/06/2023 29.3 kg/m2 242558.51 g Gayle Bryant MD [address] [facility] [facility] [address], [place], [address], [facility] [employer] 03/06/2023 09:33:26 Date Recorded Body height Body weight Body mass index (BMI) Body temperature Heart rate Oxygen saturation Oxygen saturation in Arterial blood by Pulse oximetry Systolic blood pressure Diastolic blood pressure Provider Name and Address Organization Details Last Updated DateTime 4 185.42 cm 862560. 25 g 30.3 kg/m2 95.7 [degF] 75 /min 98 % 98 % 92 mm[Hg] 68 mm[Hg] Fanta White RN [facility] [employer] 4 16:09:02 Date Recorded Body height Body mass index (BMI) Body weight Body temperature Heart rate Oxygen saturation Oxygen saturation in Arterial blood by Pulse oximetry Systolic blood pressure Diastolic blood pressure Provider Name and Address Organization Details Last Updated DateTime 4 185.42 cm 30.7 kg/m2 176949. 02 g 98.9 [degF] 85 /min 97 % 97 % 120 mm[Hg] 78 mm[Hg] Fanta White RN [facility] [employer] [facility] 4 09:30:32 Date Recorded Body height Body mass index (BMI) Body weight Body temperature Heart rate Oxygen saturation Oxygen saturation in Arterial blood by Pulse oximetry Systolic blood pressure Diastolic blood pressure Provider Name and Address Organization Details Last Updated DateTime 5 185.42 cm 29.4 kg/m2 992807. 1 g 97.5 [degF] 71 /min 97 % 97 % 118 mm[Hg] 86 mm[Hg] Janelle Gann MA [facility] [employer] 5 08:40:58 Social History Question Answer Notes LastModified by Organizat ion Details LastModified Time Tobacco Smoking Status Former Smoker quit 9 years ago Gayle Bryant MD [address] [place] [address], [address], [facility] [employer] [facility] [employer] 03/06/2023 09:37:33 What Is Your Level Of Alcohol Consumption? None [id number] Information not available 04/20/2022 What Is Your Level Of Caffeine Consumption? None [id number] Information not available 04/20/2022 In The 14 Days Before Symptom Onset, Have You Had Close Contact With A Laboratory-confir med COVID-19 While That Case Was Ill? No Information not available 12/07/2022 In The 14 Days Before Symptom Onset, Have You Had Close Contact With A Person Who Is Under Investigation For COVID-19 While That Person Was Ill? No Information not available 12/07/2022 What Type Of Diet Are You Following? REGULAR [id number] Information not available 04/20/2022 When Did You Quit Smoking? 6-10yearssi [email or web address] rette Information not available 12/07/2022 What Was The Date Of Your Most Recent Tobacco Screening? 03/06/2023 [email or web address] Information not available 03/06/2023 Do You Use Any Illicit Or Recreational Drugs? No Information not available 12/07/2022 Have You Recently Traveled Abroad? No Information not available 12/07/2022 Do You Have Any Dietary Restrictions? No Information not available 12/07/2022 Do You Or Have You Ever Used Any Other Forms Of Tobacco Or Nicotine? No Information not available 12/07/2022 Sex: Unknown Functional Status Question Answer Note LastModified by Organizat ion Details LastModified Time What is your exercise level? None [id number] Information not available 04/20/2022 Mental Status None recorded. Family History Nothing Reported Notes:Mother 80 fro m CVA and HTN Father 90 from CAD Three brothers all living CVA(1), Asbestosis(1) Four sisters all living one with CAD NO ENT Medical History Condition Response HEART DISEASE/HEART PROBLEMS Y ENT Y HYPERTENSION Y Past Encounters Encounter ID Performer Location Encounter Start Date Encounter Closed Date Diagnosis/Indication Diagnosis SNOMED-CT Code Diagnosis ICD10 Code Diagnosis Note [id number] [facility] Primary Care [facility] [address] [place] [address] 04/07/2022 00:00:00 04/17/2022 19:59:43 [id number] Gayle Bryant MD [facility] Primary Care [facility] [address] [place] [address] 04/28/2022 10:24:39 04/28/2022 11:47:10 [id number] Gayle Bryant MD [facility] Primary Care [facility] [address] [place] [address] 05/19/2022 08:56:56 05/19/2022 09:31:32 Erectile dysfunction 675023302 F52.21 trial of sildenafil 50 mg prnreviewe d potential med s/e and how to use properly Lower urin bladimir tract symptoms due to benign prostatic hypertrophy 8813285531 9101 N40.1 begin tamsulosin 0.4 mg dailypsa normal Diabetes mellitus 149667 09 E11.9 newly dx a1c 6.8begin metformin ER 500 mg dailycut back pepsi to one per daymediter ranean style dietf/u in 3 months Anxiety 29098676 F41.9 Pt understand s this medication has risk for abuse/depe ndence and agrees to take it only as prescribed and to guard from loss/theft [place] prescripti on monitoring website reviewedus es sparinglyf /u in 4 weeks [id number] Gayle Bryant MD [facility] Primary Care [address] [place] [address] 08/18/2022 08:56:26 08/18/2022 12:52:03 Pain of left ankle joint 1685923050 4778403 M25.572 likely tendinitis ok to take otc anti-infla mmatories with food, daily stretching , ice after activities call/f/u in 2 weeks if no improvemen t Anxiety 85915777 F41.9 Pt understand s this medication has risk for abuse/depe ndence and agrees to take it only as prescribed and to guard from loss/theft [place] prescripti on monitoring website reviewedus es sparinglyf /u in 4 weeks Type 2 abby betes mellitus without complication 199859327 E11.9 [id number] Max Wheeler MD [facility] ENT [place] [address] [place] [address] 12/07/2022 14:34:42 12/07/2022 16:00:46 Eczema of external auditory canal 05731079 H60.784 [id number] Gayle Bryant MD [facility] Primary Care [facility] [address] [facility] [address] [place] [address] 03/06/2023 09:06:33 03/06/2023 10:03:17 Adult health examination 563054031 Z00.00 Z12.5 Check fasting labsDeclin es vaccinesRe main nonsomkerP ulmonary orders LDCT, last done 08/12Colono scopy referral givenCheck psa Rivera's esophagus 3029 [address]9037 K22.70 GI referral given Screening for malignant neoplasm of colon 483559599 Z12.11 GI referral given Type 2 abby betes mellitus without complication 979199777 E11.9 continue metformin ER 500 mg dailycheck labs Essential hypertension 28415834 I10 stablecont inue entresto per cardiology Lower urin bladimir tract symptoms due to benign prostatic hypertrophy 3531282551 9101 N40.1 continue tamsulosin 0.4 mg daily Coronary arteriosclerosis 53607417 I25.[address] Blas Chronic ob structive pulmonary disease 96560794 J44.9 remain nonsmokers ees pulmonary Dr. Velez Anxiety 99703973 F41.9 Pt understand s this medication has risk for abuse/depe ndence and agrees to take it only as prescribed and to guard from loss/theft [place] prescripti on monitoring website reviewedus es sparinglyf /u in 6 months or sooner if needed Renewal of prescription 434808887 Z76.0 refill given [id number] Gayle Bryant MD [facility] Primary Care [facility] [address] [facility] [place] [address] 04/27/2023 10:47:25 04/27/2023 12:03:10 [id number] CHASE Andre [facility] Primary Care [facility] [address] [facility] [address] [place] [address] 04/28/2023 15:56:45 05/02/2023 11:49:25 Transition of care 1396778473 105 Z75.8 -was recently in the hospital for PVS's (3 days)-was given sotalol and nonitored Ventricula r premature complex 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 Betts (cardiolog ist), determinat ion of ablation [id number] CHASE Andre [facility] Primary Care [facility] [address] [facility] [place] [address] 09/05/2023 09:24:59 09/05/2023 11:03:03 History of radiofrequency ablation operation for arrhythmia 499748196 Z98.890 pt had ablation 1 month agocontinu es to note palpitatio nsf/u with cardio in 1 week Long-term drug therapy 232734993 Z79.384 [id number] CHASE Carrizales [facility] Primary Care Jas campbell [address] [facility] [address] [facility] [place] [address] 04/17/2024 08:30:32 04/17/2024 09:14:14 Long-term drug therapy 198361448 Z79.891 Adult heal th examination 024776568 Z00.01 Discussed medication compliance and routine follow up.Discuss ed healthy diet and routine exercise.R eviewed vaccine records and made recommenda tions as needed.Enc ouraged annual eye and dental exams, as well as twice yearly dental cleanings. Will check screening labs as listed below. Actinic keratosis 007 L57.0 Essential hypertension 12309953 I10 118/86Disc ussed DASH diet and routine exercise. Type 2 abby betes mellitus without complication 715285866 E11.9 Will check labs as listed below. Screening for malignant neoplasm of prostate 261132290 Z12.5 Will check labs as listed below. Muscle weakness 27424306 M62.81 Gastroesop hageal reflux disease without esophagitis 097841551 K21.9 Serum crea tinine above reference range 067989622 R79.89 Screening for malignant neoplasm of colon 968870577 Z12.11 Body mass index 25-29 - overweight 816883582 Z68.29 Weight: 223 poundsBMI: 29.4Discus sed healthy diet and routine exercise. Health Concerns Section Related Observation LastModified by Organization Detai ls LastModified Time None Recorded Concern Status LastModified by Organization Details LastModified Time None Recorded Advance Directives Directive None Recorded Payers Encounter Date Sequence Insurance Name Policy Number Policy Kurtz Covered Member ID Kurtz Member ID Guarantor Name 03/06/2023 1 [place] - DOS PRIOR TO 2024 - [employer] - PRIME () Emmie Treadwell [id number] Emmie Treadwell 04/27/2023 1 [place] - DOS PRIOR TO 2024 - [employer] - PRIME () Emmie Treadwell [id number] Emmie L Treadwell 04/28/2023 1 [place] - DOS PRIOR TO 2024 - [employer] - PRIME () Emmie Treadwell [id number] Emmie L Treadwell 09/05/2023 1 [place]AST - DOS PRIOR TO 2024 - [employer] - PRIME () Emmie Treadwell [id number] Emmie L Treadwell 04/17/2024 1 [employer]AST - DOS ON OR AFTER 24 - [employer] () Emmie Carr Treadwell [id number] Emmie Carr Treadwell Notes Date Note Type Note Provider Name and Address Organization Details Recorded Time 03/06/2023 text/html here for check u p. Home blood sugars are running 120s or lower. He is having more pvcs, uses diltiazem prn which helps. Home blood pressures are normal. Has h/o Rivera's and recently has had a few episodes of dysphagia Gayle Bryant MD [address], [place], [address], [employer] 03/06/2023 09:57:40 04/28/2023 text/html Pt was recently in the hospital for PVCs CHASE Andre [address], [place], [address], [employer] 05/02/2023 09:56:31 09/05/2023 text/html pt is here for f/u CHASE Mitchell [address], [place], [address], [employer] 09/05/2023 09:46:16 04/17/2024 text/html Patient is a 63 year that presents to the office for annual wellness. Patient reports he is doing well overall. Patient is scheduled to see seat coverer in June due to elevated creatinine. Patient continues to see Cardiology routinely. Patient requesting to have actinic keratosis removed under his left eye and on his back. labs-orderedCologu wmw-fkicujdMNK-nel eredFlu- declinesCovid- UTDTdap- UTD (2021)Shingles- declinesPneumo- declines Shadia Hartley, [employer] [address] [facility] [facility] [address], [place], [address], [place] [facility] 04/17/2024 14:22:41
--- OUTSIDE RECORDS SUMMARY | 2024-06-07 09:06 | XMS_ITS | Referral Summary ---
Author Organization [facility] [address] Address [address] [place] [address] Care Team Providers Care Pig Machine Operator Name Role Phone Alfredo Blas MD Unavailable [phone] Miscellaneous, Not In File Unavailable Unava ilable Shadia Hartley NP Primary Care Provider [phone] Encounters Date Type Department Care Team Description 04/18/2024 9:00 AM RESOURCE MANAGEMENT SPECIALIST Office Visit [facility] Medical [facility] Cardiology [address] [place] [id number] Leonie Doty MD Symptomatic PVCs (Primary Dx); History of mitral valve repair; Coronary artery disease involving washoe coronary artery of washoe heart without angina pectoris; Chronic heart failure with mildly reduced ejection fraction (HFmrEF, 41-49%) (HCC); Essential hypertension 03/22/2024 2:30 PM RESOURCE MANAGEMENT SPECIALIST Ancillary Procedure [facility] Cardiology [address] [place] [address] PVC's (premature ventricular contractions); Palpitations 03/22/2024 Orders Only [facility] Cardiology [address] [facility] Advanced Medicine 8th [place] [address] [place] [address] Amy Betts MD PVC's (premature ventricular contractions) (Primary Dx); Palpitations 03/16/2024 Patient Self-Triage [facility] Health[facility]/ Physicians [address] [place] [address] Mychart, Generic Provider from Last 3 Months Allergies Active Allergy Reactions Criticality Noted Date [...] 04/21/2023 Assessment & Plan (04/22/2023 2:56 PM RESOURCE MANAGEMENT SPECIALIST): History of symptomatic PVCs s/p ablation in [...] cardiology. Assessment & Plan (04/22/2023 2:45 PM RESOURCE MANAGEMENT SPECIALIST): Mild CAD on LHC (25% mid RCA) in 2021. -Denies chest [...] prn. Assessment & Plan (04/22/2023 2:44 PM RESOURCE MANAGEMENT SPECIALIST): -Continue home alprazolam PRN Assessment & Plan [...] (03/19/2018): Added automatically from request for surgery [id number] Assessment & Plan (10/04/2023 12:04 PM CDT): [...] (10/03/2023 11:19 AM CDT): -Hx of DVT 2018, recent right leg swelling with negative dopplers [...] (10/24/2017): Added automatically from request for surgery [id number] Assessment & Plan (12/03/2017 12:02 PM CDT): [...] 08/18/2017 Assessment & Plan (04/22/2023 2:43 PM RESOURCE MANAGEMENT SPECIALIST): History of mild cardiomyopathy with LVEF as low as 40s around the time of his MV repair in 2018. Now with low-normal LVEF (50%) on last [...] (08/01/2017): Added automatically from request for surgery [id number] Essential hypertension 06/08/2017 Assessment & Plan (10/04/2023 [...] atorvastatin. Assessment & Plan (04/22/2023 2:42 PM RESOURCE MANAGEMENT SPECIALIST): Lipid panel 04/20: Total cholesterol-161, HDL35, LDL-106, [...] Mild to Mod MR, trace TR, mild AK. -Hemodynamically stable, appears mildly volume up on [...] Recheck BMP in am -Ok to d/c saravia Acute pulmonary insufficiency 11/30/2017 12/03/2017 Assessment & [...] with history concerning for ACS. Pt had LHC scheduled for 08/22. Follows with Dr. Blas. -LHC -Hgb A1c, lipid panel -cont home aspirin and atorvastatin PVC (premature ventricular contraction) 06/08/2017 12/10/2017 Social History Tobacco Use Types Packs/Day Years [...] on file Legal Sex Male 9:22 PM RESOURCE MANAGEMENT SPECIALIST Gender Identity Not on file Sexual Orientation Not on file Last Filed Vital Signs Vital Sign Reading Time Taken Comments Blood Pressure 120/82 04/18/2024 8:55 AM RESOURCE MANAGEMENT SPECIALIST Pulse 73 04/18/2024 8:55 AM RESOURCE MANAGEMENT SPECIALIST Temperature 36.7 C (98.1 F) 12/07/2023 3:33 PM CDT Respiratory Rate 18 10/04/2023 11:17 AM CDT Oxygen Saturation 99% 04/18/2024 8:55 AM RESOURCE MANAGEMENT SPECIALIST Inhaled Oxygen Concentration - - Weight 102.5 kg (226 lb) 04/18/2024 8:55 AM RESOURCE MANAGEMENT SPECIALIST Height 182.9 cm (6') 04/18/2024 8:55 AM RESOURCE MANAGEMENT SPECIALIST Body Mass Index 30.65 04/18/2024 8:55 AM RESOURCE MANAGEMENT SPECIALIST Plan of Treatment Not on file Medical Devices Implanted Type Area Nail Cutter Device Identifier Shelf Expiration Date Model / Serial / Lot [employer] Vascade Mvp 6-12fr Venous Closure [id number] - [id number] - [id number] Implanted:Qty: 1 on 08/14/2023 by Amy Betts MD at [facility] Collagen Left: Femoral Vein [employer] 04/25/2025 [id number] -[id number] / [id number] / [id number] 311B [employer] Vascade Mvp 6-12fr Venous Closure [id number] - [id number] - [id number] Implanted:Qty: 1 on 08/14/2023 by Amy Betts MD at [facility] Collagen Right: Femoral Vein [employer] 04/25/2025 [id number] -10U / [id number] 311B / [id number] 311B [employer] Device Vascular Closure Femoral Artery Bioabsorbable Dual Method Vascade 6-7fr Collagen [id number] - [id number] - [id number] Implanted:Qty: 1 on 08/14/2023 by Amy Betts MD at [facility] Collagen Left: Femoral Vein [employer] 04/18/2025 [id number] -05U / [id number] / [id number] 306A Medtronic Card Vas Surgery [id number] Streamline 53cm Temporary Bipolar Coaxial Myocardium Lead Pacing Latex Free - [id number] Implanted:Qty: 1 on 11/30/2017 by Tenzin Johnson Jr., MD at [facility] Lead N/A: Chest Medtronic Card Vas Surgery 09/12/2019 [id number] / / [employer] [id number] Montrell-Dennis ds Physio Ii 34mm Kurtz Sew Mitral Ring - [id number] - [id number] Implanted:Qty: 1 on 11/30/2017 by Tenzin Johnson Jr., MD at [facility] Prosthetic Valve N/A: Chest [employer] 10/02/2021 [id number] / [id number] / Description:PHYSIO II ANNULO PLASTY RING Procedures Procedure Name Priority Date/Time Associated Diagnosis Comments ELECTROCARDIOGRAM REPORT Routine 04/18/2024 Symptomatic PVCs EXTENDED/SKILLED NURSING HOLTER PATCH (>48 HOURS UP TO 7 DAYS) Routine 03/23/2024 8:12 AM RESOURCE MANAGEMENT SPECIALIST PVC's (premature ventricular contractions) Palpitations from Last 3 Months Results * Electrocardiogram Report (04/18/2024) 04/18/2024 us [facility] Angela Doty MD ECG ORDERABLES Final R esult * Extended/Jail Holter Patch (>48 hours up to 7 days) (03/23/2024 8:12 AM RESOURCE MANAGEMENT SPECIALIST) LV EF % CONS SCIMAGE Anatomical Region Laterality Modality Electrocardiogra phy 03/23/2024 8:12 AM RESOURCE MANAGEMENT SPECIALIST Narrative 03/31/2024 11:31 PM RESOURCE MANAGEMENT SPECIALIST [facility], [address] [place] [address] HOLTER MONITOR Patient Name: EMMIE SCHILLING L : 1960 (63y 9m) Gender: M Study Date: 03/23/2024 08:12:43 AM Ht(Inch): 78 Wt(Lb): 226 BSA: 2.38 Tech: Location: [facility] Order Provider: AMY BETTS BMI: 26.11 Ref Provider: AMY BETTS - PROCEDURES: Holter Report: EXTENDED/SKILLED NURSING HOLTER PATCH (>48 HOURS UP TO 7 [...] events Total (SVE): 310 events Singlets (PVCs): 90398 events Couplets (PVCs): 315 events Total (VE): 71735 events Total beats: 817735 Protocol: Recording Duration (Ordered): 3d Recording Duration (Actual): 894257.98 Monitor Number: [id number] Total QRS: 769176 Date Recorded: 2024-03-23 08:12:43 Date Processed: 2024-03-23 [...] PDF report can be found in the [facility] patient chart. Electronically Signed By: Jerrell Rose Jr.D. 03/31/2024 11:30:31 PM RESOURCE MANAGEMENT SPECIALIST Electronically Signed By: Jerrell Rose Jr., M.D. 03/31/2024 11:30:31 PM RESOURCE MANAGEMENT SPECIALIST Procedure Note Jerrell Rose MD PhD - 03/31/2024 [facility], [address] [place] [address] HOLTER MONITOR Patient Name: EMMIE SCHILLING L : 1960 (63y 9m) Gender: M Study Date: 03/23/2024 08:12:43 AM Ht(Inch): 78 Wt(Lb): 226 BSA: 2.38 Tech: Location: [facility] Order Provider: AMY BETTS BMI: 26.11 Ref Provider: AMY BETTS - PROCEDURES: Holter Report: EXTENDED/SKILLED NURSING HOLTER PATCH (>48 HOURS UP TO 7 [...] events Total (SVE): 310 events Singlets (PVCs): 44572 events Couplets (PVCs): 315 events Total (VE): 13798 events Total beats: 469560 Protocol: Recording Duration (Ordered): 3d Recording Duration (Actual): 668317.98 Monitor Number: [id number] Total QRS: 552674 Date Recorded: 2024-03-23 08:12:43 Date Processed: 2024-03-23 [...] PDF report can be found in the [facility] patient chart. Electronically Signed By: Jerrell Rose Jr., M.D. 03/31/2024 11:30:31 PM RESOURCE MANAGEMENT SPECIALIST Electronically Signed By: Jerrell Rose Jr., M.D. 03/31/2024 11:30:31 PM RESOURCE MANAGEMENT SPECIALIST Amy Betts MD CV CARDIAC SERVICES [facility] Final Result from Last 3 Months Insurance [employer] ACCESS [facility] CLAIMS CLAIMS CLAIMS Advance Directives For more information, please contact: [phone] * Full Code (Latest Code Status on [...] 2:26 AM 11/07/2020 9:54 PM Care Teams Pig Machine Operator Relationship Specialty Start Date End Date Shadia Hartley NP [address] [place] [address] PCP - General Family Medicine 04/08/24 Alfredo Blas MD [address] [place] [address] [address] [place] [address] Consulting Physician Cardiology 10/19/17 Miscellaneous, Not In File 11/07/20
--- NOTE | 2024-06-07 09:10 | ED_ITS ---
HPI - Back Pain/Injury General Chief Complaint: Back Pain/Injury Stated Complaint: left testicle and lower back pain Time Seen by Provider: 06/07/24 09:06 Source: patient Mode of arrival: ambulatory Limitations: no limitations History of Present Illness HPI Narrative: This is a 63-year-old male who presents to the ED for chief complaint of left flank pain and left scrotal pain for the past couple of days. Patient states that this pain started in the left flank and it was after doing some manual labor. Since then he states that he has had increasing pain to the left testicle as well as abdomen. States that the pain makes him nauseous but he has not vomited. Denies any diarrhea or GI bleeding symptoms. Denies fevers, chills, it urinary symptoms. Related Data Home Medications ?Medication ?Instructions ?Recorded ?Confirmed ?Last Taken ?Type aspirin 81 mg tablet,delayed 81 mg PO DAILY 01/07/19 07/27/23 02/11/20 History release (Enteric Coated Aspirin) alprazolam 0.25 mg tablet 1 mg PO DIRECTED PRN Anxiety 05/31/22 07/27/23 04/18/23 History diltiazem HCl 30 mg tablet 30 mg PO DAILY PRN other 03/24/23 07/27/23 Unknown History fluticasone propionate 50 2 spray intranasal DAILY 03/24/23 07/27/23 Unknown History mcg/actuation nasal spray,suspension tamsulosin 0.4 mg capsule 0.4 mg PO DAILY 03/24/23 07/27/23 Unknown History Allergies Allergy/AdvReac Type Severity Reaction Status Date / Time azithromycin Allergy Unknown Hallucinati Verified 06/07/24 09:26 ng Review of Systems 2 Review of Systems: All systems as dictated in HPI [facility] Past Medical History Medical History Abdominal wall pain Rivera esophagus BMI 29.0-29.9,adult Cholelithiasis Chronic acquired lymphedema Chronic anticoagulation Chronic anxiety Chronic GERD Colon cancer screening Constipation Crepitus of joint of left knee Dyshidrotic eczema Dysphagia Essential (primary) hypertension GERD (gastroesophageal reflux disease) History of deep venous thrombosis (DVT) of distal vein of right lower extremity Insomnia Onychomycosis of right great toe Personal history of atrial fibrillation Postprandial RUQ pain Prostate cancer screening Renal insufficiency, mild RUQ pain Skin lesion of back Skin tag Vomiting Surgical History Surgical History History of cardiac radiofrequency ablation History of mitral valve repair History of tonsillectomy History of vasectomy Family History Family History Mother , age 82 Cerebrovascular accident Family history of heart disease in male family member before age 55 Father , age 82 Family history of heart disease in male family member before age 55 Sibling Family history of heart disease in male family member before age 55 Social History Social History Smoking packs per day: 1 Smoking cigarettes per day: 20.0 Years smoked: 30 Smoking pack-years: 30.00 Smoking status: Former smoker Tobacco type: cigarettes Smoking end date: 02/20/14 Alcohol intake: never Substance use: never Substance use type: does not use Living arrangements: with family Occupation/Education: occupation Additional occupation/education comments: Security Gender identity (if verbalized by the patient): Male Sexual Orientation (if Verbalized by the Patient): Straight or Heterosexual Spiritual care concerns: No Agree to blood products: Yes Exam 2 Narrative: GENERAL: Well-appearing, well-nourished, and in no acute distress. HEAD: Normocephalic, atraumatic. EYES: PERRLA and EOMI. ENT: Nares clear, no rhinorrhea or epistaxis. Mucous membranes moist. Oropharynx without tonsillar hypertrophy exudate or other lesions. NECK: Supple. No adenopathy or masses. CHEST: No respiratory distress. Clear to auscultation. No wheezes rales or rhonchi HEART: Regular rate and rhythm. No murmur heard. Normal peripheral pulses. ABDOMEN: Left flank tenderness present. Soft, nondistended, normal active bowel sounds. MSK: Normal range of motion. No edema. SKIN: Warm, dry, no rash. NEURO: Alert and oriented x4. No focal deficits. PSYCH: Normal mood and affect. : No testicular swelling. No tenderness to the testicle. No erythema or rash. Course Vital Signs Vital signs: Vital Signs Pulse Rate 90 06/07/24 09:13 Respiratory Rate 21 H 06/07/24 09:13 Blood Pressure 143/100 H 06/07/24 09:13 Pulse Oximetry 98 06/07/24 09:13 Temperature 97.4 F L 06/07/24 09:15 Pulse Rate 65 06/07/24 14:09 Respiratory Rate 15 06/07/24 14:09 Blood Pressure 161/99 H 06/07/24 14:09 Pulse Oximetry 95 06/07/24 14:09 Oxygen Delivery Room Air 06/07/24 09:15 MDM - Back Pain/Injury MDM Narrative Medical decision making narrative: This is a 63-year-old male who presents to the ED for chief complaint of back pain and left testicular pain. No urinary symptoms. Vitals show elevated blood pressure on arrival but otherwise normal. Afebrile. Exam does show left flank tenderness. There is no testicular swelling or enlargement or tenderness. Ultrasound scrotal Doppler shows no evidence of torsion but there is a left hydrocele. CT abdomen with IV contrast: Impression: No acute abnormalities seen. Diffuse fatty infiltration of liver. 1.3 x 0.7 cm nonobstructing right renal stone. Patient was having difficulty with pain control, had to use Dilaudid x2 as well as Toradol, however he did end up feeling better. Unsure of exactly what his cause of pain is today. May be due to the hydrocele but also may be due to recently passed stone although it that urinalysis shows no bleeding or infection. Urology referral given. Patient will be discharged in stable condition. Supportive measures discussed and return precautions given. Patient is understanding and agreeable with plan for discharge with urology follow-up. Lab Data 06/07/24 09:29 06/07/24 09:29 Labs: Lab Results 06/07/24 06/07/24 Range/Units 09:29 10:52 WBC 5.2 (4.5-10.0) K/mm3 RBC 4.54 L (4.6-6.20) M/mm3 Hgb 13.8 L (14.0-18.0) g/dL Hct 42.8 (42.0-52.0) % MCV 94.3 (80-100) fl MCH 30.4 (26-34) pg MCHC 32.2 (32-36) g/dl RDW 13.9 (11.5-14.5) % Plt Count 220 (150-375) k/mm3 MPV 10.7 H (7.4-10.4) fl Immature Gran % (Auto) 0.2 (0-0.5) % Neut % (Auto) 60.5 (45.5-73.1) % Lymph % (Auto) 27.5 (18.3-44.2) % Nuckolls % (Auto) 8.5 (2.6-8.5) % Eos % (Auto) 2.5 (0-4.4) % Baso % (Auto) 0.8 (0.2-1.2) % Lymph # (Auto) 1.42 (0.9-3.2) K/mm3 Nuckolls # (Auto) 0.4 (0.1-0.6) K/mm3 Eos # (Auto) 0.1 (0-0.3) K/mm3 Baso # (Auto) 0.0 (0.0-0.1) K/mm3 Abs Immat Gran (auto) 0.01 (0.00-0.031) K/mm3 Absolute Neuts (auto) 3.1 (1.3-6.7) K/mm3 Absolute Nucleated RBC 0.000 (0.0-0.012) K/mm3 Nucleated RBC % 0.0 (0.0-0.2) % Sodium 141 (137-145) mmol/L Potassium 4.0 (3.4-5.0) mmol/L Chloride 108 H (98-107) mmol/L Carbon Dioxide 21 L (22-30) mmol/L Anion Gap 12 (4-12) mmol/L BUN 16 (9-20) mg/dL Creatinine 1.54 H (0.7-1.3) mg/dL Estim Creat Clear Calc 51 ml/min Estimated GFR 46 L (59 - ) Glucose 112 H (65-110) mg/dL Lactic Acid 1.2 (0.7-2.0) mmol/L Calcium 9.0 (8.4-10.2) mg/dL Total Bilirubin 1.0 (0.2-1.3) mg/dL AST 34 (17-59) U/L ALT 39 (6-50) U/L Alkaline Phosphatase 69 (38-126) U/L Total Protein 8.0 (6.3-8.2) g/dL Albumin 4.3 (3.5-5.1) g/dL Lipase 77 (23-300) U/L Urine Color Yellow (Yellow) Urine Appearance Clear (Clear) Urine pH 5.5 (5.0-9.0) Ur Specific Murray 1.044 H (1.001-1.035) Urine Protein Negative (Negative) mg/dL Urine Glucose (UA) 3+ H (Negative) mg/dL Urine Ketones Trace H (Negative) mg/dL Ur Blood (Man) Negative (Negative) Urine Nitrate Negative (Negative) Urine Bilirubin Negative (Negative) Urine Urobilinogen 1.0 (<2.0) mg/dL Leukocyte Esterase Rfl Negative (Negative) NAVYA/UL Discharge Plan Discharge Clinical Impression: Abdominal pain, Calculus, renal, Hydrocele, left Patient Disposition: Home Condition: Stable Instructions: Antibiotic Form Additional Instructions: Exam and imaging today are reassuring. Please take pain medications as prescribed and use for breakthrough pain. Control your pain at baseline with Tylenol 500 mg and ibuprofen 600 mg. Symptoms should subside over the next week. Please follow-up with urology for the findings on the imaging today. If you have any new or worsening symptoms please return to the ER for further evaluation. Patient Language: Salvadorean Prescriptions: New hydrocodone-acetaminophen 5-325 mg tablet 1 tablet PO Q8H Qty: 7 0RF No Action alprazolam 0.25 mg tablet 1 mg PO DIRECTED PRN (Reason: Anxiety) clotrimazole 1 % cream 1 applic topical BID 28 Days Qty: 45 0RF pantoprazole [Protonix] 40 mg tablet,delayed release (DR/EC) 40 mg PO BID 90 Days Qty: 180 3RF tamsulosin 0.4 mg capsule 0.4 mg PO DAILY diltiazem HCl 30 mg Tablet 30 mg PO DAILY PRN (Reason: other) fluticasone propionate [Flonase] 50 mcg/actuation [place],Suspension 2 spray INTRANASAL DAILY Rx Instructions: administer into each nostril aspirin [Enteric Coated Aspirin] 81 mg tablet,delayed release (DR/EC) 81 mg PO DAILY metoprolol succinate 100 mg tablet extended release 24 hr 100 mg PO DAILY Qty: 90 3RF gabapentin 300 mg capsule 300 mg PO BID Qty: 180 3RF Follow-up/Referrals: Shadia Joy MD [Primary Care Provider] - Addison Calle MD [Physician] - Time of Disposition: 14:01
[2024-06-07] MEDS: ONDANSETRON INJ 4 MG/2 ML VIAL IV PUSH (09:26)
[2024-06-07] MEDS: HYDROmorphone HCL INJ (*CRX) 2 MG/ML VIAL 0.5 MG IV PUSH ×2 (09:27→13:43)
[2024-06-07 09:37] LABS: Basophils Percent Auto 0.8 % (0.2-1.2); Eosinophils Absolute Auto 0.1 K/mm3 (0-0.3); Eosinophils Percent Auto 2.5 % (0-4.4); Hematocrit 42.8 % (42.0-52.0); Hemoglobin 13.8 g/dL (14.0-18.0); Immature Granulocyte Absolute 0.01 K/mm3 (0.00-0.031); Immature Granulocyte Percent A 0.2 % (0-0.5); Lymphocytes Absolute Auto 1.42 K/mm3 (0.9-3.2); Lymphocytes Percent Auto 27.5 % (18.3-44.2); Mean Corpuscular HGB Conc 32.2 g/dl (32-36); Mean Corpuscular Hemoglobin 30.4 pg (26-34); Mean Corpuscular Volume 94.3 fl (80-100); Mean Platelet Volume 10.7 fl (7.4-10.4); Monocytes Absolute Auto 0.4 K/mm3 (0.1-0.6); Monocytes Percent Auto 8.5 % (2.6-8.5); Neutrophils Absolute Auto 3.1 K/mm3 (1.3-6.7); Neutrophils Percent Auto 60.5 % (45.5-73.1); Platelet Count Result 220 k/mm3 (150-375); Red Blood Count 4.54 M/mm3 (4.6-6.20); Red Cell Distribution Width 13.9 % (11.5-14.5); White Blood Count 5.2 K/mm3 (4.5-10.0)
[2024-06-07 09:45] LABS: Alanine Aminotransferase 39 U/L (6-50); Albumin Level 4.3 g/dL (3.5-5.1); Alkaline Phosphatase 69 U/L (38-126); Anion Gap 12 mmol/L (4-12); Aspartate Amino Transferase 34 U/L (17-59); Blood Urea Nitrogen 16 mg/dL (9-20); Carbon Dioxide 21 mmol/L (22-30); Chloride 108 mmol/L (98-107); Estimated CRCL calculation 51 ml/min; Estimated Glomerular Filt Rate 46; Glucose 112 mg/dL (65-110); Lipase 77 U/L (23-300); Sodium 141 mmol/L (137-145)
[2024-06-07 09:46] LABS: Lactic Acid Reflex 1.2 mmol/L (0.7-2.0)
--- OUTSIDE RECORDS SUMMARY | 2024-06-07 09:48 | XMS_ITS | Encounter Summary ---
Author Organization [facility] Address [address] [place] [address] Care Team Providers Care Sock Lining Stitcher Name Role Phone Kaveh Kc MD Primary Care Provider [phone] [place] Bush Primary Care Provider [phone] Severino Rouse DO Primary Care Provider [phone] Zuleyma Bolanos DO Primary Care Provide r Encounter Details Date Type Department Care Team (Late st Contact Info) Description 07/29/2019 Hospital Follow-up Call [facility] [place] [address] Dinah Dewey, RN Social History Tobacco Use [...] Rule Out 01/24/2021 01/24/2021 01/24/2021 9:44 AM ASSEMBLER DIELECTRIC HEATER COVID-19 Confirmed 01/24/2021 01/24/2021 12:32 AM ASSEMBLER DIELECTRIC HEATER documented as of this encounter Care Teams Sock Lining Stitcher Relationship Specialty Start Date End Date Kaveh Kc MD PCP - General FAMILY PRACTICE 05/25/17 10/17/19 [place] [address] [place] [address] PCP - General PHYSICIAN BLACK TOP SPREADER MACHINE OPERATOR 10/18/19 11/04/19 Severino Rouse DO [address] [facility] [address] [place] [address] PCP - General FAMILY PRACTICE 11/05/19 09/21/21 Zuleyma Bolanos DO 3 [facility] [address] [place] [address] PCP - General FAMILY PRACTICE 09/22/21 documented as of this encounter
--- OUTSIDE RECORDS SUMMARY | 2024-06-07 09:48 | XMS_ITS | Encounter Summary ---
Author Organization [facility] Address [address] [place] [address] Phone Care Team Providers Care Outdoor Adventure Leader Name Role Phone Alfredo Blas MD Unavailable [phone] NasimSeverino edmond DO Primary Care Provider [phone] Miscellaneous, Not In File Unavailable Unava ilable Gayle Bryant MD Primary Care Provider + Lucia GlassW Unavailable [phone] Shadia Hartley NP Primary Care Provider [phone] Encounter Details Date Type Department Care Team [...] on file Legal Sex Male 9:22 PM IP TECHNOLOGY TRANSACTIONS ATTORNEY Gender Identity Not on file Sexual Orientation [...] on filedocumented in this encounter Care Teams Outdoor Adventure Leader Relationship Specialty Start Date End Date Severino Rouse DO Asim [address] [facility] [address] [place] [address] PCP - General Family Medicine 08/25/20 04/17/23 Gayle Bryant MD [address] [place] [address] PCP - General Family Medicine 04/18/23 04/07/24 Shadia Hartley NP [address] [place] [address] PCP - General Family Medicine 04/08/24 Alfredo Blas MD [address] [place] [address] [address] [place] [address] Consulting Physician Cardiology 10/19/17 Miscellaneous, Not In File 11/07/20 Lucia Glass, POT ANNEALER [address] [facility] ([place] [facility] Mailstop [phone] [place] [address] SHOP Outpatient Professor Of Engineering 10/05/23 10/05/23 documented as of this encounter
--- OUTSIDE RECORDS SUMMARY | 2024-06-07 09:48 | XMS_ITS | Clinical Summary ---
Author Organization [facility] Address [address] [place] [address] Phone Care Team Providers Care Electrical Panel Builder Name Role Phone Kaveh Kc MD Primary Care Provider [phone] Allergies Active Allergy Reactions Criticality Noted Date [...] - 1-dose 75+ series) 2036 Care Teams Electrical Panel Builder Relationship Specialty Start Date End Date Kaveh Kc MD [address] [place] [address] PCP - General Family Practice 12/13/16
--- OUTSIDE RECORDS SUMMARY | 2024-06-07 09:48 | XMS_ITS | Clinical Summary ---
Author Organization [facility] 2 Address [address] [place] [address] Care Team Providers Care Certified Phlebotomy Technician Name Role Phone Alfredo Blas MD Unavailable [phone] Miscellaneous, Not In File Unavailable Unava ilable Shadia Hartley NP Primary Care Provider [phone] Allergies Active Allergy Reactions Criticality Noted Date [...] 04/21/2023 Assessment & Plan (04/22/2023 2:56 PM BACKEND DEVELOPER): History of symptomatic PVCs s/p ablation in [...] cardiology. Assessment & Plan (04/22/2023 2:45 PM BACKEND DEVELOPER): Mild CAD on [facility] (25% mid RCA) in 2021. -Denies chest [...] prn. Assessment & Plan (04/22/2023 2:44 PM BACKEND DEVELOPER): -Continue home alprazolam PRN Assessment & Plan [...] (03/19/2018): Added automatically from request for surgery [id number] Assessment & Plan (10/04/2023 12:04 PM CDT): [...] (10/24/2017): Added automatically from request for surgery [id number] Assessment & Plan (12/03/2017 12:02 PM CDT): [...] 08/18/2017 Assessment & Plan (04/22/2023 2:43 PM BACKEND DEVELOPER): History of mild cardiomyopathy with LVEF as [...] (08/01/2017): Added automatically from request for surgery [id number] Essential hypertension 06/08/2017 Assessment & Plan (10/04/2023 [...] atorvastatin. Assessment & Plan (04/22/2023 2:42 PM BACKEND DEVELOPER): Lipid panel 04/20: Total cholesterol-161, HDL35, LDL-106, [...] Mild to Mod MR, trace TR, mild ME. -Hemodynamically stable, appears mildly volume up on [...] with history concerning for ACS. Pt had [facility] scheduled for 08/22. Follows with Dr. Blas. -[facility] -Hgb A1c, lipid panel -cont home aspirin and atorvastatin PVC (premature ventricular contraction) 06/08/2017 12/10/2017 Encounters Date Type Department Care Team Description 04/18/2024 9:00 AM BACKEND DEVELOPER Office Visit [facility] Cardiology [address] [place] [address] Leonie Doty MD Symptomatic PVCs (Primary Dx); History of mitral valve repair; Coronary artery disease involving [place] coronary artery of anvik heart without angina pectoris; Chronic heart failure with mildly reduced ejection fraction (HFmrEF, 41-49%) ([facility]); Essential hypertension 03/22/2024 2:30 PM BACKEND DEVELOPER Ancillary Procedure [facility] Cardiology [address] [place] [address] PVC's (premature ventricular contractions); Palpitations 03/22/2024 Orders Only [facility] Cardiology [address] [facility] Advanced Medicine 8th [place] [address] [place] [address] Amy Betts MD PVC's (premature ventricular contractions) (Primary Dx); Palpitations 03/16/2024 Patient Self-Triage [facility] HealthCare/ Physicians [address] [place] [address] Mychart, Generic Provider from Last 3 Months [...] (gastroesophageal reflux disease) DVT (deep venous thrombosis) ([facility]) Hx of RLE DVT CKD (chronic kidney [...] on file Legal Sex Male 9:22 PM BACKEND DEVELOPER Gender Identity Not on file Sexual Orientation Not on file Obstetrics History Last Filed Vital Signs Vital Sign Reading Time Taken Comments Blood Pressure 120/82 04/18/2024 8:55 AM BACKEND DEVELOPER Pulse 73 04/18/2024 8:55 AM BACKEND DEVELOPER Temperature 36.7 C (98.1 F) 12/07/2023 3:33 PM CDT Respiratory Rate 18 10/04/2023 11:17 AM CDT Oxygen Saturation 99% 04/18/2024 8:55 AM BACKEND DEVELOPER Inhaled Oxygen Concentration - - Weight 102.5 kg (226 lb) 04/18/2024 8:55 AM BACKEND DEVELOPER Height 182.9 cm (6') 04/18/2024 8:55 AM BACKEND DEVELOPER Body Mass Index 30.65 04/18/2024 8:55 AM BACKEND DEVELOPER Plan of Treatment Health Maintenance Due Date [...] Completed 06/22/2008 Medical Devices Implanted Type Area Finishing Room Operator Device Identifier Shelf Expiration Date Model / Serial / Lot [employer] Vascade Mvp 6-12fr Venous Closure [id number] - [id number] - [id number] Implanted:Qty: 1 on 08/14/2023 by Amy Betts MD at [facility] Collagen Left: Femoral Vein [employer] 04/25/2025 800-612C -10U / [id number] / [id number] [employer] Vascade Mvp 6-12fr Venous Closure [id number] - [id number] - [id number] Implanted:Qty: 1 on 08/14/2023 by Amy Betts MD at [facility] Collagen Right: Femoral Vein [employer] 04/25/2025 800-612C -10U / [id number] 311B / [id number] [employer] Device Vascular Closure Femoral Artery Bioabsorbable Dual Method Vascade 6-7fr Collagen [id number] - [id number] - [id number] Implanted:Qty: 1 on 08/14/2023 by Amy Betts MD at [facility] Collagen Left: Femoral Vein [employer] 04/18/2025 [id number] -05U / [id number] / [id number] Medtronic Card Vas Surgery [id number] Streamline 53cm Temporary Bipolar Coaxial Myocardium Lead Pacing Latex Free - [id number] Implanted:Qty: 1 on 11/30/2017 by Tenzin Johnson Jr., MD at [facility] Lead N/A: Chest Medtronic Card Vas Surgery 09/12/2019 [id number] / / Guid[employer] [id number] Montrell-Dennis ds Physio Ii 34mm Kurtz Sew Mitral Ring - [id number] - [id number] Implanted:Qty: 1 on 11/30/2017 by Tenizn Johnson Jr., MD at [facility] Prosthetic Valve N/A: Chest [employer] 10/02/2021 [id number] / [id number] / Description:PHYSIO II ANNULO PLASTY RING Procedures Procedure Name Priority Date/Time Associated Diagnosis Comments ELECTROCARDIOGRAM REPORT Routine 04/18/2024 Symptomatic PVCs EXTENDED/[facility] HOLTER PATCH (>48 HOURS UP TO 7 DAYS) Routine 03/23/2024 8:12 AM BACKEND DEVELOPER PVC's (premature ventricular contractions) Palpitations from Last 3 Months Results * Electrocardiogram Report (04/18/2024) 04/18/2024 [facility] Angela Doty MD ECG ORDERABLES Final R esult * Extended/Custodial Holter Patch (>48 hours up to 7 days) (03/23/2024 8:12 AM BACKEND DEVELOPER) LV EF % CONS SCIMAGE Anatomical Region Laterality Modality Electrocardiogra phy 03/23/2024 8:12 AM BACKEND DEVELOPER Narrative 03/31/2024 11:31 PM BACKEND DEVELOPER [facility], [address] [place] [address] HOLTER MONITOR Patient Name: EMMIE SCHILLING L : 1960 (63y 9m) Gender: M Study Date: 03/23/2024 08:12:43 AM Ht(Inch): 78 Wt(Lb): 226 BSA: 2.38 Tech: Location: [facility] Order Provider: AMY BETTS BMI: 26.11 Ref Provider: AMY BETTS - PROCEDURES: Holter Report: EXTENDED/[facility] HOLTER PATCH (>48 HOURS UP TO 7 [...] events Total (SVE): 310 events Singlets (PVCs): 75501 events Couplets (PVCs): 315 events Total (VE): 06154 events Total beats: 084193 Protocol: Recording Duration (Ordered): 3d Recording Duration (Actual): 141499.98 Monitor Number: [id number] Total QRS: 775150 Date Recorded: 2024-03-23 08:12:43 Date Processed: 2024-03-23 [...] PDF report can be found in the [facility] patient chart. Electronically Signed By: Jerrell Rose Jr., M.D. 03/31/2024 11:30:31 PM BACKEND DEVELOPER Electronically Signed By: Jerrell Rose Jr., M.D. 03/31/2024 11:30:31 PM BACKEND DEVELOPER Procedure Note Jerrell Rose MD PhD - 03/31/2024 [facility], [address] [place] [address] HOLTER MONITOR Patient Name: EMMIE SCHILLING L : 1960 (63y 9m) Gender: M Study Date: 03/23/2024 08:12:43 AM Ht(Inch): 78 Wt(Lb): 226 BSA: 2.38 Tech: Location: [facility] Order Provider: AMY BETTS BMI: 26.11 Ref Provider: AMY BETTS - PROCEDURES: Holter Report: EXTENDED/[facility] HOLTER PATCH (>48 HOURS UP TO 7 [...] events Total (SVE): 310 events Singlets (PVCs): 89332 events Couplets (PVCs): 315 events Total (VE): 88541 events Total beats: 397217 Protocol: Recording Duration (Ordered): 3d Recording Duration (Actual): 710313.98 Monitor Number: [id number] Total QRS: 809491 Date Recorded: 2024-03-23 08:12:43 Date Processed: 2024-03-23 [...] PDF report can be found in the [facility] patient chart. Electronically Signed By: Jerrell Rose Jr., M.D. 03/31/2024 11:30:31 PM BACKEND DEVELOPER Electronically Signed By: Jerrell Rose Jr., M.D. 03/31/2024 11:30:31 PM BACKEND DEVELOPER Amy Betts MD CV CARDIAC SERVICES PROCE [facility] Final Result from Last 3 Months Insurance [employer] ACCESS Member Subscriber Plan / Payer (Ef fective 2018-Present) Name:Emmie Schilling Relation to Subscriber:Self Name:SCHILLINGEMMIE L Payer ID:[id number] (NAIC) Group ID:[id number] (DO NOT USE) Type:[employer] Address: [address] CLAIMS CLAIMS CLAIMS Advance Directives For more information, please contact: [phone] * Full Code (Latest Code Status on [...] 2:26 AM 11/07/2020 9:54 PM Care Teams Certified Phlebotomy Technician Relationship Specialty Start Date End Date Shadia Hartley NP [address] [place] [address] [place] [address] PCP - General Family Medicine 04/08/24 Alfredo Blas MD [address] [place] [address] [address] [place] [address] Consulting Physician Cardiology 10/19/17 Miscellaneous, Not In File 11/07/20
--- OUTSIDE RECORDS SUMMARY | 2024-06-07 09:48 | XMS_ITS | Referral Summary ---
Author Organization [facility] Medical [facility] 2 Address [address] [place] [address] Care Team Providers Care Property Utilization Officer Name Role Phone Alfredo Blas MD Unavailable Miscellaneous, Not In File Unavailable Unava ilable Shadia Hartley NP Primary Care Provider [phone] Encounters Date Type Department Care Team Description 04/18/2024 9:00 AM PUBLIC SERVICE OFFICER Office Visit [facility] Cardiology [address] [facility] [address] [place] [address] Leonie Doty MD Symptomatic PVCs (Primary Dx); History of mitral valve repair; Coronary artery disease involving [place] coronary artery of [place] heart without angina pectoris; Chronic heart failure with mildly reduced ejection fraction (HFmrEF, 41-49%) (HCC); Essential hypertension 03/22/2024 2:30 PM PUBLIC SERVICE OFFICER Ancillary Procedure [facility] Card[facility] [address] [place] [address] PVC's (premature ventricular contractions); Palpitations 03/22/2024 Orders Only [facility] [address] [facility] Advanced Medicine 8th [place] [address] [place] [address] Amy Betts MD PVC's (premature ventricular contractions) (Primary Dx); Palpitations 03/16/2024 Patient Self-Triage [facility]/ Physicians [address] [place] [address] Mychart, Generic Provider from Last 3 Months [...] 04/21/2023 Assessment & Plan (04/22/2023 2:56 PM PUBLIC SERVICE OFFICER): History of symptomatic PVCs s/p ablation in [...] cardiology. Assessment & Plan (04/22/2023 2:45 PM PUBLIC SERVICE OFFICER): Mild CAD on [facility] (25% mid RCA) [...] prn. Assessment & Plan (04/22/2023 2:44 PM PUBLIC SERVICE OFFICER): -Continue home alprazolam PRN Assessment & Plan [...] (03/19/2018): Added automatically from request for surgery [id number] Assessment & Plan (10/04/2023 12:04 PM CDT): [...] (10/24/2017): Added automatically from request for surgery [id number] Assessment & Plan (12/03/2017 12:02 PM CDT): [...] 08/18/2017 Assessment & Plan (04/22/2023 2:43 PM PUBLIC SERVICE OFFICER): History of mild cardiomyopathy with LVEF as [...] (08/01/2017): Added automatically from request for surgery [id number] Essential hypertension 06/08/2017 Assessment & Plan (10/04/2023 [...] atorvastatin. Assessment & Plan (04/22/2023 2:42 PM PUBLIC SERVICE OFFICER): Lipid panel 04/20: Total cholesterol-161, HDL35, LDL-106, [...] Mild to Mod MR, trace TR, mild IN. -Hemodynamically stable, appears mildly volume up on [...] on file Legal Sex Male 9:22 PM PUBLIC SERVICE OFFICER Gender Identity Not on file Sexual Orientation Not on file Last Filed Vital Signs Vital Sign Reading Time Taken Comments Blood Pressure 120/82 04/18/2024 8:55 AM PUBLIC SERVICE OFFICER Pulse 73 04/18/2024 8:55 AM PUBLIC SERVICE OFFICER Temperature 36.7 C (98.1 F) 12/07/2023 3:33 PM CDT Respiratory Rate 18 10/04/2023 11:17 AM CDT Oxygen Saturation 99% 04/18/2024 8:55 AM PUBLIC SERVICE OFFICER Inhaled Oxygen Concentration - - Weight 102.5 kg (226 lb) 04/18/2024 8:55 AM PUBLIC SERVICE OFFICER Height 182.9 cm (6') 04/18/2024 8:55 AM PUBLIC SERVICE OFFICER Body Mass Index 30.65 04/18/2024 8:55 AM PUBLIC SERVICE OFFICER Plan of Treatment Not on file Medical Devices Implanted Type Area Clock Maker Device Identifier Shelf Expiration Date Model / Serial / Lot [employer] Inc Vascade Mvp 6-12fr Venous Closure [id number] - [id number] - [id number] Implanted:Qty: 1 on 08/14/2023 by Amy Betts MD at [facility] Collagen Left: Femoral Vein [employer] 04/25/2025 800-612C -10U / [id number] 311B / [id number] 311B [employer] Vascade Mvp 6-12fr Venous Closure [id number] - [id number] - [id number] Implanted:Qty: 1 on 08/14/2023 by Amy Betts MD at [facility] Collagen Right: Femoral Vein [employer] 04/25/2025 800-612C -10U / [id number] 311B / [id number] 311B [employer] Device Vascular Closure Femoral Artery Bioabsorbable Dual Method Vascade 6-7fr Collagen [id number] - [id number] - [id number] Implanted:Qty: 1 on 08/14/2023 by Amy Betts MD at [facility] Collagen Left: Femoral Vein [employer] 04/18/2025 700-580I -05U / [id number] / [id number] Medtronic Card Vas Surgery 6495f Streamline 53cm Temporary Bipolar Coaxial Myocardium Lead Pacing Latex Free - [id number] Implanted:Qty: 1 on 11/30/2017 by Tenzin Johnson Jr., MD at [facility] Lead N/A: Chest Medtronic Card Vas Surgery 09/12/2019 [id number] / / [employer] [id number] Montrell-Dennis ds Physio Ii 34mm Kurtz Sew Mitral Ring - [id number] - [id number] Implanted:Qty: 1 on 11/30/2017 by Tenzin Johnson Jr., MD at [facility] Prosthetic Valve N/A: Chest [employer] 10/02/2021 [id number] / [id number] / Description:PHYSIO II ANNULO PLASTY RING Procedures Procedure Name Priority Date/Time Associated Diagnosis Comments ELECTROCARDIOGRAM REPORT Routine 04/18/2024 Symptomatic PVCs EXTENDED/[facility] HOLTER PATCH (>48 HOURS UP TO 7 DAYS) Routine 03/23/2024 8:12 AM PUBLIC SERVICE OFFICER PVC's (premature ventricular contractions) Palpitations from Last 3 Months Results * Electrocardiogram Report (04/18/2024) 04/18/2024 us [facility] Angela Doty MD ECG ORDERABLES Final R esult * Extended/Halfway Holter Patch (>48 hours up to 7 days) (03/23/2024 8:12 AM PUBLIC SERVICE OFFICER) LV EF % CONS SCIMAGE Anatomical Region Laterality Modality Electrocardiogra phy 03/23/2024 8:12 AM PUBLIC SERVICE OFFICER Narrative 03/31/2024 11:31 PM PUBLIC SERVICE OFFICER [facility], [address] [place] [address] HOLTER MONITOR Patient Name: EMMIE SCHILLING L : 1960 (63y 9m) Gender: M Study Date: 03/23/2024 08:12:43 AM Ht(Inch): 78 Wt(Lb): 226 BSA: 2.38 Tech: [facility] [facility] Order Provider: AMY BETTS BMI: 26.11 Ref Provider: AMY BETTS - PROCEDURES: Holter Report: EXTENDED/[facility] HOLTER PATCH (>48 HOURS UP TO 7 [...] events Total (SVE): 310 events Singlets (PVCs): 36655 events Couplets (PVCs): 315 events Total (VE): 45458 events Total beats: 427926 Protocol: Recording Duration (Ordered): 3d Recording Duration (Actual): 260800.98 Monitor Number: [id number] Total QRS: 288193 Date Recorded: 2024-03-23 08:12:43 Date Processed: 2024-03-23 [...] PDF report can be found in the [facility] patient chart. Electronically Signed By: Jerrell Rose Jr.D. 03/31/2024 11:30:31 PM PUBLIC SERVICE OFFICER Electronically Signed By: Jerrell Rose Jr., M.D. 03/31/2024 11:30:31 PM PUBLIC SERVICE OFFICER Procedure Note Jerrell Rose MD PhD - 03/31/2024 [facility], [address] [place] [address] HOLTER MONITOR Patient Name: EMMIE SCHILLING L : 1960 (63y 9m) Gender: M Study Date: 03/23/2024 08:12:43 AM Ht(Inch): 78 Wt(Lb): 226 BSA: 2.38 Tech: [facility] [facility] Order Provider: AMY BETTS BMI: 26.11 Ref Provider: AMY BETTS - PROCEDURES: Holter Report: EXTENDED/[facility] HOLTER PATCH (>48 HOURS UP TO 7 [...] events Total (SVE): 310 events Singlets (PVCs): 19160 events Couplets (PVCs): 315 events Total (VE): 61045 events Total beats: 792968 Protocol: Recording Duration (Ordered): 3d Recording Duration (Actual): 755518.98 Monitor Number: [id number] Total QRS: 806457 Date Recorded: 2024-03-23 08:12:43 Date Processed: 2024-03-23 [...] PDF report can be found in the [facility] patient chart. Electronically Signed By: Jerrell Rose Jr., M.D. 03/31/2024 11:30:31 PM PUBLIC SERVICE OFFICER Electronically Signed By: Jerrell Rose Jr., M.D. 03/31/2024 11:30:31 PM PUBLIC SERVICE OFFICER Amy Betts MD CV CARDIAC SERVICES [facility] J[facility] Final Result from Last 3 Months Insurance [employer] ACCESS [facility] CLAIMS CLAIMS CLAIMS Advance Directives For more information, please contact: [phone] * Full Code (Latest Code Status on [...] 2:26 AM 11/07/2020 9:54 PM Care Teams Property Utilization Officer Relationship Specialty Start Date End Date Shadia Hartley NP [address] [place] [address] PCP - General Family Medicine 04/08/24 Alfredo Blas MD [address] [place] [address] [address] [place] [address] Consulting Physician Cardiology 10/19/17 Miscellaneous, Not In File 11/07/20
--- OUTSIDE RECORDS SUMMARY | 2024-06-07 09:48 | XMS_ITS | Clinical Summary ---
Author Organization [facility] Facility Address [address] [place] [address] Care Team Providers Care Reeling Machine Operator Name Role Phone Shadia Hartley ZIPPER SETTER CHAINSTITCH-C Primary Care Provider [phone] Social History Tobacco Use Types Packs/Day Years [...] to complete this topic Insurance Care Teams Reeling Machine Operator Relationship Specialty Start Date End Date Shadia Hartley FNP-C [address] [place] [address] PCP - General Family Medicine 03/04/24
--- OUTSIDE RECORDS SUMMARY | 2024-06-07 09:48 | XMS_ITS | Clinical Summary ---
Author Organization [facility] Address [facility] [place] [address] Care Team Providers Care Junior Accountant Bookkeeper Name Role Phone Zuleyma Bolanos DO Primary [...] (01/03/2022): Added automatically from request for surgery [id number] Oropharyngeal dysphagia 01/03/2022 Overview (01/03/2022): Added automatically from request for surgery [id number] Screening for colon cancer 01/03/2022 Overview (01/03/2022): Added automatically from request for surgery [id number] Irritable bowel syndrome with constipation 01/03 Overview (01/03/2022): Added automatically from request for surgery [id number] Abdominal pain 11/06/2019 Chest pain 07/27/2019 Headache 07/27/2019 Continuous dependence on cigarette smoking 09/23 PVC (premature ventricular contraction) 03/19/19 Overview (07/27/2019): Added automatically from request for surgery [id number] Deep vein thrombosis (DVT) o f lower extremity ([facility]) 12/10/2017 Overview (07/27/2019): Last Assessment & Plan: Admitted for LLE DVT from ED yesterday on heparin drip Will change to Eliquis and d/c heparin Plan d/c to home with follow up with Dr Johnson in 2 weeks with repeat LE doppler at that time Non-rheumatic mitral regurgitation 10/24/2017 Overview (07/27/2019): Added automatically from request for surgery [id number] Last Assessment & Plan: Post op Mitral [...] (07/27/2019): Added automatically from request for surgery [id number] HTN (hypertension) 06/08/2017 Hyperlipidemia 09/20/2011 Family History [...] 10:39 PM 07/28/2019 1:23 PM Care Teams Junior Accountant Bookkeeper Relationship Specialty Start Date End Date Zuleyma Bolanos DO [address] [phone] PCP - General FAMILY PRACTICE 09/22/21
--- OUTSIDE RECORDS SUMMARY | 2024-06-07 09:48 | XMS_ITS | Encounter Summary ---
Author Organization [facility] Healthcare Address [address] [place] [address] Care Team Providers Care Photographers' Model Name Role Phone Kaveh Kc MD Primary Care Provider [phone] Alfredo Blas MD Unavailable [phone] NasimSeverino edmond DO Primary Care Provider [phone] Miscellaneous, Not In File Unavailable Unava ilable Gayle Bryant MD Primary Care Provider + Lucia Glass [facility] Unavailable [phone] Shadia Hartley NP Primary Care Provider [phone] Encounter Details Date Type Department Care Team (Late st Contact Info) Description 12/09/2017 Documentation [facility] Case Management [address] [place] [address] Brandie Randle RN Social History Tobacco Use Types Packs/Day Years Used Date Smoking Tobacco: Former Cigarettes - 2015 Smokeless Tobacco: Never Alcohol Use Standard Drinks/Week Comments No 0 (1 standard drink = 0.6 oz pur e alcohol) Sex and Gender Information Value Date Recorded Sex Assigned at Not on file Legal Sex Male 9:22 PM SHIPFITTERS SUPERVISOR Gender Identity Not on file Sexual Orientation Not on file documented as of this encounter Plan of Treatment Not on file documented as of this encounter Visit Diagnoses Not on filedocumented in this encounter Care Teams Photographers' Model Relationship Specialty Start Date End Date Kaveh Kc MD [address] [address] PCP - General 08/17/17 08/24/20 Severino Rouse DO [address] [facility] [address] [place] [address] PCP - General Family Medicine 08/25/20 04/17/23 Gayle Bryant MD [address] [facility] [address] [place] [address] PCP - General Family Medicine 04/18/23 04/07/24 Shadia Hartley NP [address] [place] [address] PCP - General Family Medicine 04/08/24 Alfredo Blas MD [address] [facility] [address] [place] [address] Consulting Physician Cardiology 10/19/17 Miscellaneous, Not In File 11/07/20 Lucia Glass, BANKING ATTORNEY [address] [facility] ([facility] Mailstop [phone] [place] [address] [facility] [employer] Instructor 10/05/23 10/05/23 documented as of this encounter
--- OUTSIDE RECORDS SUMMARY | 2024-06-07 09:48 | XMS_ITS | Clinical Summary ---
Author Organization [facility] Address [address] [facility] [place] [address] Phone Care Team Providers Care Global Security Architect Name Role Phone Provider, None Primary Care [...] patient's age to complete this topic Insurance [place] [address] Care Teams Global Security Architect Relationship Specialty Start Date End Date Provider, None [place] PCP - General 10/15/19
--- OUTSIDE RECORDS SUMMARY | 2024-06-07 09:49 | XMS_ITS ---
plasty ring is presen t Lungs/ Pleura l Spaces : The lungs and pleura l spaces are clear. Chest Wall/D iaphra gm/Upp er Abdome n: The thorac ic muscul oskele jaime struct ures and the upper abdome n are within normal limits for age. IMPRES RANDAL: 1. There is no acute cardio pulmon bladimir proces s. Ordere d By: DIANA Chance Electr onical ly Signed By: Juan Miguel Gauthier MD on 05/28/19 1:57 PM Interp reted By: Juan Miguel Gauthier MD, 05/28/19 1:55 PM [email or web address], [place], [address], 05/28/2021 11:29:13 05/28/19 22 ECG 12-le ad [facility] [place] [address] [facility] [place] [address] [place] Test Date: 05-27 Pat Name: NAIN SCHILLING Depart ment: 42 Patien t ID: [id number] Room: [facility] Gender : Male Techni cassandra: MAHENDRA : [birth year] Reques niya By: DIANA Chance Order Number : [id number] Yuki man MD: Isreal man Measur ements Interv als [place] Rate: 56 P: 38 FL: 173 QRS: 13 QRSD: 91 T: 31 QT: 422 QTc: 409 Interp retive Statem ents SINUS BRADYC ARDIA Compar ed to ECG 2021 09:52: 47 Sinus bradyc ardia now presen t Electr onical ly signed by Isreal man at 05-28-19 18:05: [email or web address] [facility] 1 [facility], [place], [address], 05/28/2021 11:29:43 08/12/19 22 xr elbow lt m3v [facility] [address] Examin ation: 3 views left elbow Access ion: [id number] Exam Date/T david: 9:01 PM Reason For Exam: swelli ng Compar harvinder: No previo us. Techni que: AP, obliqu e, and latera l radiog raphs of the left elbow Findin gs: There is no malali gnment . No acute bony abnorm alitie s are seen. Mild early degene rative change s are noted. Small olecra non spur. There is soft tissue swelli ng over the olecra non bursa which may repres ent bursit is and infect ion cannot be exclud ed. Recomm end clinic al correl ation and manage ment. If the sympto ms still persis t additi onal studie s includ ing MRI of the left elbow includ ing withou t and IV with contra st can BE consid ered. There is no joint effusi on. ===== IMPRES RANDAL: ===== 1. Soft tissue swelli ng mostly around the olecra non bursa compat ible with inflam mation /infec tion. 2. No acute bony abnorm alitie s. Small olecra non spur and mild degene rative change s. Ordere d By: PEPE INMAN TON Electr onical ly Signed By: Lucio Henning MD on 9:24 PM Interp reted By: Lucio Henning MD, 9:[email or web address] [facility], [place], [address], 08/12/2021 14:56:57 09/08/19 XR, chest [facility] [address] EXAMIN ATION: CHEST X-RAY ONE VIEW EXAM TIME: 2248 hours. COMPAR HARVINDER: 05/28/19. HISTOR Y: Palpit ations for 3 days. FINDIN GS: A single portab le AP view of the chest is submit niya for evalua tion. The heart is within normal limits in size. Pulmon bladimir vascul arity is within normal limits . The lungs are well expand ed withou t focal airspa ce consol idatio n. No pleura l effusi ons. No pneumo thorax . IMPRES RANDAL: No acute cardio pulmon bladimir proces s. Referr ed By: Electr onical ly Signed By: Fernando beck MD on 11:12 PM Interp reted By: Fernando beck MD, 11:[address] [facility] 1 [facility], [place], [address], 09/09/2021 10:58:33 09/08/19 22 ECG 12-le ad [facility] [address] [facility] [place] [address], [place] Test Date: 09-06 Pat Name: NAIN SCHILLING Depart ment: 41 Patien t ID: [id number] Room: [facility] Gender : Male Techni cassandra: EM : 4- Reques niya By: PEPE INMAN TON Order Number : [id number] Yuki man MD: Lion Perez Measur ements Interv als [place] Rate: 77 P: 50 FL: 148 QRS: 1 QRSD: 90 T: 19 QT: 339 QTc: 385 Interp retive Statem ents SINUS RHYTHM WITH FREQUE NT VENTRI CULAR PREMAT URE COMPLE XES NONSPE CIFIC T-WAVE ABNORM ALITY ABNORM AL RHYTHM ECG Compar ed to ECG 2021 14:09: 50 Ventri cular premat ure comple x(es) now presen t T-wave abnorm ality now presen t Sinus bradyc ardia no longer presen t Electr onical ly signed by Lion Perez at 6:47:3 7 CDT [facility] 1 [facility], [place], [address], 10/13/2021 18:23:59 09/08/19 22 ECG 12-le ad [facility] [address] [place] [address] [facility] [place] [address], [place] Test Date: 09-06 Pat Name: NAIN SCHILLING Depart ment: 41 Patien t ID: [id number] Room: 4 Gender : Male Techni cassandra: EM : [birth year]17 Reques niya By: PEPE INMAN TON Order Number : [id number] Yuki man MD: Lion Perez Measur ements Interv als [place] Rate: 77 P: 50 FL: 148 QRS: 1 QRSD: 90 T: 19 QT: 339 QTc: 385 Interp retive Statem ents SINUS RHYTHM WITH FREQUE NT VENTRI CULAR PREMAT URE COMPLE XES NONSPE CIFIC T-WAVE ABNORM ALITY ABNORM AL RHYTHM ECG Compar ed to ECG 2021 14:09: 50 Ventri cular premat ure comple x(es) now presen t T-wave abnorm ality now presen t Sinus bradyc ardia no longer presen t Electr onical ly signed by Lion Perez at 09-07- 022 6:47:3 7 CDT [facility] 1 [facility], [place], [address], 10/13/2021 18:23:59 10/19/19 22 10/05/2021 US, abdom en No observ ation record ed. [facility] One [facility], [place], [address], 10/18/2021 15:46:42 04/30/19 24 XR, chest [facility] [place] [address] Examin ation: Chest radiog raph Exam time: 9:03 PM Clinic al histor y: Shortn ess of breath Compar harvinder: Techni que: One view of the chest obtain ed. Findin gs: Surgic al change s of prior valve placem ent. Normal heart size. No consol idatio ns, pleura l effusi ons, or defini te pneumo thorax . Degene rative change s. IMPRES RANDAL: 1. No defini te acute radiog raphic abnorm alitie s identi fied in the chest. Referr ed By: Electr onical ly Signed By: Pierre Cedillo MD on 9:17 PM Interp reted By: Pierre Cedillo MD, 9:[address] [facility] 1 [facility], [place], [address], 05/02/2023 02:18:13 05/01/19 24 ECG 12-le ad [facility] [place] [address] [facility] [place] [address], [facility] [place] Test Date: 04-29 Pat Name: NAIN SCHILLING Depart ment: 41 Patien t ID: [id number] Room: EXAM01 Gender : Male Techni cassandra: MS : [birth year]17 Reques niya By: RACIEL SMITH Order Number : [id number] Yuki man MD: David Simons Measur ements Interv als [place] Rate: 88 P: 52 FL: 145 QRS: 7 QRSD: 84 T: 42 QT: 355 QTc: 430 Interp retive Statem ents SINUS RHYTHM WITH FREQUE NT VENTRI CULAR PREMAT URE COMPLE XES ABNORM AL RHYTHM ECG Compar ed to ECG 2021 22:31: 30 No signif icant change Electr onical ly signed by David Simons at 17:35: [email or web address] [facility] 1 [facility], [place], [address], 05/23/2023 14:23:45 05/01/19 24 ECG 12-le ad [facility] [place] [address] [facility] [place] [address], [place] Test Date: 04-29 Pat Name: NAIN SCHILLING Depart ment: 41 Patien t ID: [id number] Room: [facility] Gender : Male Techni cassandra: MS : [birth year]17 Reques niya By: RACIEL SMITH Order Number : [id number] Yuki man MD: David Simons Measur ements Interv als [place] Rate: 88 P: 52 FL: 145 QRS: 7 QRSD: 84 T: 42 QT: 355 QTc: 430 Interp retive Statem ents SINUS RHYTHM WITH FREQUE NT VENTRI CULAR PREMAT URE COMPLE XES ABNORM AL RHYTHM ECG Compar ed to ECG 2021 22:31: 30 No signif icant change Electr onical ly signed by David Simons at 17:35: [email or web address] [facility] 1 [facility], [place], [address], 05/23/2023 14:23:45 Result Notes None recorded. Problems Name Problem SNOMED Code Status Onset Date Resolution Date Notes Provider Name and Address Organization Details Recorded Time Kidney stone 69232909 Active 2019 Non-obst ructing right stone present on CT scan MARI Durán [facility] 0 22:38:44 Boy gutierrez 394997705 Completed 201911/06/2019 Removal Reason: Cholecys tectomy on 11/06/19 MARI Durán [facility] 0 22:39:26 Steatosi s of liver 162410072 Active 2019 Severino [place], [place] - [facility] 0 22:39:45 Hyperten sive disorder 89162041 Active 2020 [place] [facility] 17:47:18 Deep venous thrombos is 605639766 Completed 202003/10/2020 [place] [facility] 17:47:38 Aortic valve stenosis 88731604 Completed 202003/10/2020 Removal Reason: S/p Aortic valve repair (11/2017 ) Severino mazariegos, MARI - [facility] 17:48:21 Gastroes ophageal reflux disease 524324164 Active 2020 [place] [facility] 17:51:04 Panic disorder 272588746 Active 2020 [place] [facility] 17:42:19 Panic attack 200232236 Completed 202012/14/2020 Removal Reason: Resolved [place] [facility] 08:51:55 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 MARI Durán 1 22:21:08 SARS-CoV -2 Completed 202011/23/2020 MARI Durán 2 08:46:51 SARS-CoV -2 Completed 202004/12/2021 Positive #2. Last positive in 10/2020. Removal Reason: Resolved MARI Durán 2 08:46:51 Acute bronchit is caused by rhinovir 526256628 Completed 202004/12/2021 + PCR in ED visit Removal Reason: Resolved MARI Durán 2 08:46:59 Rivera' s esophagu s 815209869 Active 2019 without dysplasi a. Needs repeat EGD 01/2023. MARI Durán SI[facility]ays[facility] 2 13:11:27 Internal hemorrho ids 32605290 Active 2019 Found on colonosc opy from 01/2020. MARI Durán SI 2 13:12:13 History of polyp of colon 982057475 Active 2019 Benign. Repeat colonosc opy recommen ded in 01/2025. MARI Durán SI 2 13:12:59 Cellulit is of left elbow 69119110008 181753 Active 2021 Treated with cephelex in and sulfamet hoxazole , trimetho prim. MARI Durán - SI 2 16:33:44 Problem Notes None recorded. Procedures Surgical History Date Name Laterality Status Provider Name and Address Organization Details Recorded Time 2020 cardiovascular stress testing completed Severino Mathias [facility] 1 22:25:12 2019 esophagogastroduodenoscopy completed Yimieze Rouse - SI 2 13:07:40 2019 colonoscopy completed Severino GUERRA - SI 2 13:08:41 2019 cholecystectomy completed Severino Nasim [place] - [facility] 0 22:57:31 2017 valvuloplasty of aortic valve completed Severino Nasim [place] - [facility] 1 17:50:01 2017 percutaneous transluminal ablation of wall of atrium completed Severino Nasim [place] - [facility] 1 17:50:41 1999 tonsilectomy/adenoids completed Severino Nasim [place] - [facility] 1 17:49:25 1985 vasectomy completed Severino Nasim [place] - [facility] 1 17:49:02 Imaging Results Imaging Date Name Status LastModified by Organization Details LastModified Time 04/01/2020 xr chest Pa+lat completed [email or web address], [address], 04/02/2020 14:22:42 04/01/2020 ECG 12-lead completed [email or web address], [address], 04/09/2020 22:51:58 04/02/2020 CT ABD+pel W con completed [email or web address], [address], 04/09/2020 22:51:58 05/05/2020 CT ABD+pel W con completed [email or web address], [address], 05/06/2020 18:59:21 09/16/2020 XR, chest completed [email or web address], [address], 09/17/2020 10:24:45 09/16/2020 ECG 12-lead completed [email or web address], [place], [address], 09/17/2020 10:24:45 10/19/2020 XR, chest completed [email or web address], [place], [address], 10/19/2020 21:38:27 10/19/2020 ECG 12-lead completed [email or web address], [place], [address], 10/19/2020 21:38:27 10/19/2020 ECG 12-lead completed [email or web address], [place], [address], 10/19/2020 21:38:28 10/20/2020 use echocardiogram W con completed [email or web address], [place], [address], 10/20/2020 17:20:22 11/21/2020 XR, chest completed [email or web address], [place], [address], 11/23/2020 11:54:33 11/21/2020 cta chest completed [email or web address], [place], [address], 11/23/2020 11:54:33 11/22/2020 ECG 12-lead completed [email or web address], [place], [address], 11/23/2020 11:54:34 11/22/2020 ECG 12-lead completed [email or web address] [address], [address], 11/23/2020 11:54:34 11/27/2020 [facility] [address], [address], 11/27/2020 12:42:57 01/24/2021 XR, chest completed [address], [address], 01/25/2021 12:20:27 01/24/2021 ECG 12-lead completed [address], [address], 01/25/2021 12:20:27 03/30/2021 xr chest Pa+lat completed [address], [address], 04/05/2021 09:08:52 03/30/2021 ECG [facility] [address], [address], 04/05/2021 10:02:05 05/27/2021 xr chest Pa+lat completed [address], [address], 05/28/2021 11:29:13 05/27/2021 ECG [facility] [address], [address], 05/28/2021 11:29:43 08/11/2021 xr elbow lt m3v completed [email or web address], [address], 08/12/2021 14:56:57 09/07/2021 XR, chest completed [address], [address], 09/09/2021 10:58:33 09/07/2021 ECG 12-lead completed [address], [address], 10/13/2021 18:23:59 09/07/2021 ECG 12-lead completed [address], [place], [address], 10/13/2021 18:23:59 10/05/2021 US, abdomen completed [facility], [place], [address], 10/18/2021 15:46:42 04/30/2023 XR, chest completed [address], [address], 05/02/2023 02:18:13 05/01/2023 ECG 12-lead completed [address], [address], 05/23/2023 14:23:45 05/01/2023 ECG 12-lead completed [address], [place], [address], 05/23/2023 14:23:45 Procedure Notes None recorded. Medical Equipment None Reported. Allergies Allergen ID Allergen Name Allergen Category Reaction Reaction Severity Criticality Documentation Date Start Date Code Code System Note Provider Name and Address Organization Details Recorded Time 690036 Zithromax medicatio n hallucina tions severe Not available 11/04/2019 4 RxNorm Not Available Not Available Not Available Medications Name Sig Start Date Stop Date Status Note LastModified by Organization Details LastModified Time amoxicill in 500 mg capsule active Not Available Not Available Not Available atorvasta tin 20 mg tablet TAKE 1 TABLET BY MOUTH ONCE DAILY 09/20 completed Not Available Not Available Not Available sildenafi l 50 mg tablet active Not Available Not Available Not Available aspirin 325 mg tablet 12/20 completed Not Available Not Available Not Available alprazola m 1 mg tablet active Not Available Not Available Not Available metoprolo l succinate ER 50 mg tablet,ex tended release 24 hr active Not Available Not Available Not Available hydrocodo ne 5 mg-acetam inophen 325 mg tablet 03/18 completed Not Available Not Available Not Available sucralfat e 1 gram tablet TAKE 1 TABLET BY MOUTH 4 TIMES DAILY BEFORE MEALS AND NIGHTLY active Not Available Not Available No t Available lisinopri l 20 mg tablet TAKE 1 TABLET BY MOUTH ONCE DAILY active Not Available Not Available No t Available prednison e 20 mg tablet 09/20 completed Not Available Not Available Not Available metoprolo l succinate ER 100 mg tablet,ex tended release 24 hr TAKE 1 TABLET BY MOUTH TWICE DAILY active Not Available Not Available No t Available hydralazi ne 25 mg tablet 04/12 completed Not Available Not Available Not Available triamcino lone acetonide 0.5 % topical ointment active Not Available Not Available Not Available amlodipin e 5 mg tablet TAKE 1 TABLET BY MOUTH ONCE DAILY 09/20 completed Not Available Not Available Not Available sulfameth oxazole 800 mg-trimet hoprim 160 mg tablet 09/20 completed Not Available Not Available Not Available sildenafi l 100 mg tablet TAKE 1 TABLET BY MOUTH ONCE DAILY NEEDED FOR ERECTILE DYSFUNCT ION active Not Available Not Available No t Available amoxicill in 500 mg tablet active Not Available Not Available Not Available alprazola m 0.25 mg tablet TAKE 1/2 TO 1 TABLET BY MOUTH TWICE DAILY NEEDED FOR ANXIETY active Not Available Not Available No t Available magnesium oxide 400 mg (241.3 mg magnesium ) tablet active Not Available Not Available Not Available tamsulosi n 0.4 mg capsule active Not Available Not Available Not Available cephalexi n 500 mg capsule 09/20 completed Not Available Not Available Not Available pantopraz ole 40 mg tablet,de layed release TAKE 1 TABLET BY MOUTH TWICE DAILY active Not Available Not Available No t Available lisinopri l 10 mg tablet 12/20 completed Not Available Not Available Not Available promethaz ine 25 mg tablet 04/16 completed Not Available Not Available Not Available hydrochlo rothiazid e 12.5 mg capsule TAKE 1 CAPSULE BY MOUTH ONCE DAILY IN THE MORNING 03/18 completed Duplicat e Not Available Not Available Not Available nystatin- triamcino lone 100,000 unit/g-0. 1 % topical cream active Not Available Not Available Not Available gabapenti n 300 mg capsule TAKE 1 CAPSULE BY MOUTH TWICE DAILY active Not Available Not Available No t Available albuterol sulfate HFA 90 mcg/actua tion aerosol inhaler INHALE 2 PUFFS BY MOUTH EVERY 6 HOURS NEEDED FOR WHEEZING active Not Available Not Available No t Available diltiazem 30 mg tablet active Not Available Not Available Not Available ketoconaz ole 2 % topical cream active Not Available Not Available Not Available lisinopri l 40 mg tablet TAKE 1 TABLET BY MOUTH IN THE EVENING 09/20 completed Not Available Not Available Not Available ondansetr on 4 mg disintegr ating tablet 04/13 completed Not Available Not Available Not Available cefdinir 300 mg capsule 12/20 completed Not Available Not Available Not Available fluticaso ne propionat e 50 mcg/actua tion nasal spray,valentino pension [place] 2 sprays every day by intranas al route. active Not Available Not Available No t Available metformin ER 500 mg tablet,ex tended release 24 hr active Not Available Not Available Not Available mometason e 0.1 % topical cream active Not Available Not Available Not Available amoxicill in 875 mg-potass ium clavulana te 125 mg tablet Take 1 tablet every 12 hours by oral route. active Not Available Not Available No t Available amoxicill in 500 mg-potass ium clavulana te 125 mg tablet TAKE 1 TABLET BY MOUTH TWICE DAILY 12/20 completed Not Available Not Available Not Available neomycin- polymyxin -hydrocor t 3.5 mg-10,000 unit/mL-1 % ear drops,valentino p active Not Available Not Available Not Available metoprolo l tartrate 25 mg tablet 03/10 completed Not Available Not Available Not Available hydrochlo rothiazid e 12.5 mg tablet TAKE 1 CAPSULE BY MOUTH ONCE DAILY IN THE MORNING NEEDED 09/20 completed Not Available Not Available Not Available GaviLyte- N 420 gram oral solution 11/12 completed Not Available Not Available Not Available Suprep Bowel Prep Kit 17.5 gram-3.13 gram-1.6 gram oral solution TAKE DIRECTED 03/10 completed Not Available Not Available Not Available Eliquis 5 mg tablet TAKE 1 TABLET BY MOUTH TWICE DAILY 09/20 completed Not Available Not Available Not Available Entresto 24 mg-26 mg tablet active Not Available Not Available No t Available Vitals Date Recorded Body height Provider Name an d Address Organization Details Last Updated DateTime 04/16/2020 185.42 cm Margie Contreras [place] - [facility] 021 16:55:40 Date Recorded Body height Body mass index (BMI) Body weight Heart rate Oxygen saturation Oxygen saturation in Arterial blood by Pulse oximetry Body temperature Systolic blood pressure Diastolic blood pressure Provider Name and Address Organization Details Last Updated DateTime 1 185.42 cm 28.9 kg/m2 26917.1 3 g 68 /min 99 % 99 % 97.9 [degF] 124 mm[Hg] 90 mm[Hg] Pearl Flaherty [place] - [facility] 1 09:02:00 Date Recorded Body height Body mass index (BMI) Body weight Body temperature Respiratory rate Heart rate Systolic blood pressure Diastolic blood pressure Systolic blood pressure Diastolic blood pressure Systolic blood pressure Diastolic blood pressure Systolic blood pressure Diastolic blood pressure Provider Name and Address Organization Details Last Updated DateTime 2 185.42 cm 30.1 kg/m2 297184. 78 g 98.4 [degF] 18 /min 72 /min 130 mm[Hg] 92 mm[Hg] 126 mm[Hg] 90 mm[Hg] 130 mm[Hg] 91 mm[Hg] 120 mm[Hg] 85 mm[Hg] Thomas Terry MA [facility] 2 10:09:49 Date Recorded Body height Body mass index (BMI) Body weight Heart rate Oxygen saturation Oxygen saturation in Arterial blood by Pulse oximetry Body temperature Systolic blood pressure Diastolic blood pressure Provider Name and Address Organization Details Last Updated DateTime 2 185.42 cm 30 kg/m2 187132. 22 g 73 /min 97 % 97 % 98.3 [degF] 108 mm[Hg] 76 mm[Hg] Pearl Flaherty MA [facility] 2 16:00:55 Date Recorded Body weight Heart rate Body temperature Body mass index (BMI) Body height Systolic blood pressure Diastolic blood pressure Provider Name and Address Organization Details Last Updated DateTime 4 267407. 62 g 66 /min 98.6 [degF] 30 kg/m2 185.42 cm 143 mm[Hg] 85 mm[Hg] Edilberto Melendez MA [facility] 4 15:13:59 Social History Question Answer Notes LastModified by Organizat ion Details LastModified Time Tobacco Smoking Status Former Smoker Quit in 2014 Pearl Flaherty MA [facility], [facility] 09/20/2021 15:57:20 Do You Have An Advance Directive? No Information not available 03/21/2023 What Is Your Level Of Alcohol Consumption? None [email or web address] Information not available 09/20/2021 Are You Currently Employed? Yes Information not available 04/16/2020 Do You Or Have You Ever Used E-cigarettes Or Vape? 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 03/21/2023 Information not available 03/21/2023 What Is Your Relationship Status? Information not available 04/16/2020 Are You Sexually Active? Yes Information not available 04/16/2020 Do You Have Smoke And Carbon Monoxide Detectors In Your Home? Yes Information not available 04/16/2020 Are You Passively Exposed To Smoke? No Information not available 04/16/2020 Do You Or Have You Ever Used Smokeless Tobacco? Never Used Smokeless Tobacco Information not available 11/04/2019 Do You Use Any Illicit Or Recreational Drugs? No Information not available 04/16/2020 Do You Or Have You Ever Used Any Other Forms Of Tobacco Or Nicotine? No Information not available 04/16/2020 Sex: Male Functional Status None recorded. Mental Status None recorded. Family History Nothing Reported. Medical History No medical history recorded. Immunizations Vaccine Type Date Status Note Provider Nam e and Address Organization Details Recorded Time COVID-19, mRNA, LNP-S, PF, 30 mcg/0.3 mL dose 11/11/2020 completed SHAKIR [place], [place] - [facility] 01/04/2021 11:55:40 COVID-19, mRNA, LNP-S, PF, 30 mcg/0.3 mL dose 01/03/2021 completed SHAKIR [place] [facility] 01/04/2021 11:56:03 Past Encounters Encounter ID Performer Location Encounter Start Date Encounter Closed Date Diagnosis/Indication Diagnosis SNOMED-CT Code Diagnosis ICD10 Code Diagnosis Note [id number] MD [facility] [address] [id number] 11/04/2019 10:07:42 11/05/2019 09:15:52 Right upper quadrant pain 687081781 R10.11 Subacute, worseningR UQ abdominal pain with positive Ann's sign concerning for biliary colic secondary to cholelithi asis. No concern for cholecysti tis at this time requiring emergent surgery. Reviewed CT abdomen/pe lvis report from 10/18/19. No statement about gallstones . Pancrease with mild enhancemen t at tail with concern for early pancreatit is. Unable to find documentat ion of previous US. Markos states previous PCP should have results. Differenti als include gallstones , PUD, pancreatit is.- RUQ abdominal US ordered- General surgery referral for possible cholecyste ctomy- No labs ordered due to reported recent draw within last 2 weeks- Obtain medical records from previous PCP.- Continue PPI- Return precaution s to ED provided- Follow up in 2 months after evaluation by general surgery Standardiz ed adult depression screening tool completed [id number] 12133 Z13.89 PHQ9 negative for depression at this time. [id number] Magdalena Matute [facility] [address] [address] 03/10/2020 09:14:03 03/11/2020 07:39:38 Overweight [id number] E66.3 Hemoglobin A1c to evaluate for DM due to elevated BMI. Right uppe r quadrant pain [id number] R10.11 ChronicRUQ abdominal pain s/p cholecyste ctomy associated with meals suspected to be gastritis. EGD reported to be clean. Kidney stone noted on CT scan during hospitaliz ation in 10/2019. Differenti als include esophagiti s, duodenitis , post-opera tive pain, PUD, pancreatit is, nephrolith iasis, hepatitis. - Check lipase for pancreatit is- BMP, UA to evaluate for possible renal dysfunctio n- Advised to contact general surgery to evaluate for post-op complicati ons- Advised to contact GI for possible capsule endoscopy- Increased PPI to BID- Discussed GERD diet- Return precaution s to ED provided- Follow up after evaluation by specialist s Hypertensive disorder [id number] I10 Chronic, controlled BP goal: < 140/90BP at goal today. Asymptomat ic. Followed by cardiologi st.- Will check ACR for possible kidney dysfunctio n- Continue amlodipine 5 mg daily- Continue lisinopril 20mg daily [id number] Hussain Castillo MD [facility] [address] [address] 04/16/2020 12:03:34 04/17/2020 08:31:33 Panic attack [id number] F41.0 Chronic, controlled Unspecifie d panic disorder associated with fear of cardiovasc ular comorbidit ies. Does not appear to meet criteria for panic disorder at this time. 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 Differenti als include somatic symptom disorder, illness anxiety disorder. NAYELY less likely.- Continue alprazolam 0.25mg PRN - Discussed switching to Atarax. Markos will read up on medication and discuss - Follow up as needed for refills in the future. [id number] Palmer Metzger MD [facility] [address] [address] 12/14/2020 08:37:24 12/15/2020 08:55:56 Overweight [id number] E66.3 Panic disorder [id number] F41.0 ChronicRev iewed PDMR. Refilling Xanax ~ once per month from our office. No other refills from outside providers. - Completed yearly controlled substance contract- UDS ordered- Discussed option of hydroxyzin e or chronic medication . Markos does not wish to take a chronic medication , but he will investigat e hydroxyzin e.- Follow up in 3 months for monitoring [id number] Hussain Castillo MD [place] [address] [address] [address] 04/12/2021 09:20:21 04/14/2021 08:51:49 Panic disorder [id number] F41.0 ChronicRev iewed PDMR. Refilling Xanax ~ once per month from our office. No other refills from outside providers. - Completed yearly controlled substance contract on 11/2020.- Discussed option of hydroxyzin e or chronic medication . Markos does not wish to take a chronic medication , but he will investigat e hydroxyzin e.- Follow up in 3 months for monitoring Right uppe r quadrant pain [id number] R10.11 Chronic, uncertain prognosisR UQ abdominal pain s/p cholecyste ctomy associated without clear etiology. EGD reported to be clean. Kidney stones and steatosis of liver noted on CT scan during hospitaliz ation in 04/2020. ED records from 03/30/21 revealed normal CBC, lipase, heptic enzymes, troponin. CXR without acute findings. UA with +1 blood. EKG was unremarkab le. He was discharged home with carafate and referral to GI. Differenti als include steatosis of liver, duodenitis , PUD, gastritis, pancreatit is, biliary stone or dilation, nephrolith iasis, musculoske latal pain, neuropathi c pain, pain related to CKD.- All labs ordered after review of ED visit from 03/30/21.- RUQ ultrasound to evaluate biliary stone or dilation- Reviewed Dr. Apolinar Ortiz's office. Markos had been referred to pain management for trigger point injections .- Continue PPI- Discussed GERD diet- Return precaution s to ED provided- Consider referral to pain management , nephrologi st, hepatologi st, urologist, or endocrinol ogist. Orthostati c hypotension [id number] I95.1 AcuteDid not meet criteria for orthostati c hypotensio n based on office measuremen ts. Symptoms consistent with diagnosis, however. No evidence of arrhythmia in HPI, but definitely a possibilit y.- Advised to call cardiologi st to discuss blood pressure medication s.- ED precaution s discussed. - No follow up needed unless symptoms worsen. [id number] PEARL FIELDS DO [facility] 47 3 [facility] [address] [place] [address] 09/20/2021 15:31:34 09/21/2021 13:06:42 Screening for malignant neoplasm of colon [id number] Z12.11 Unable to complete last colonoscop y, may need another, unsure of history History of Rivera's esophagus [id number] Z87.19 Last EDG 5 years ago, unclear history. Needs to be followed up-Current ly taking pantoprazo le 40 mg Right uppe r quadrant pain [id number] R10.11 Patient having consistent RUQ, with more post prandial pain. Desire to assess size and quality of the organs in the RUQ. Possibilit y of remaining choledocha l duct with stone.- Apart from imaging, explained to patient that adhesions can happen after surgery and the pain he is experienci ng may be chronic pain due to adhesions. Hernia of anterior abdominal wall [id number] K43.9 Abdominal ventral hernia visualized on exam, likely diastasis recti.- Imaging to assess quality, consider giving home exercises vs. surgery referral [id number] Margo Giles MD [facility] [address] [place] [address] 03/21/2023 15:07:52 03/22/2023 09:26:12 Serous otitis media 15784900 H65.92 follow back in a month Sensorineu ral hearing loss of bilateral ears [id number] H90.3 Health Concerns Section Related Observation LastModified by Organization Detai ls LastModified Time None Recorded Concern Status LastModified by Organization Details LastModified Time None Recorded Advance Directives Directive N: Payers Encounter Date Sequence Insurance Name Policy Number Policy Kurtz Covered Member ID Kurtz Member ID Guarantor Name 04/16/2020 1 [place]) 113 Nain Nogueraer [id number] Nain Schilling 12/14/2020 1 [place] 113 Nain Nogueraer [id number] Nain Schilling 04/12/2021 1 [place] 113 Nain Nogueraer [id number] Nainjoy Nogueraer 03/21/2023 1 [place] - [place] PRIOR TO 2024 - [employer] - [employer] ( - PPO) Nain Schilling [id number] Nain Schilling Notes Date Note Type Note Provider Name and Address Organization Details Recorded Time 04/16/2020 text/html 59yo M presents to clinic for refill of Xanax.- Reports history of anxiety. Reports taking Xanax for at least 3 years.- Reports having thoughts of something is going to happen, something is going to happen. when he becomes concerned about medical related issues. Most commonly he will sense something is off (i.e. twinge of chest pain).- Reports concern about having a heart attack or stroke following his heart condition 3 years ago.- Endorses elevated blood pressure, visible distress on his face (per ), tachycardia, fear of , trembling, nausea, lightheadedness- Denies dyspnea- Xanax will calm him within 5 minutes- Does not regularly think about having future or repeat panic attacks.- Reports a bottle of 30 pills will last him several months. - Denies substance abuse or excess coffee intake Hussain Castillo MD Attn: Accounting,[address] [facility], [place], [address], [place] [facility] 04/17/2020 19:08:26 12/14/2020 text/html 60yo M with hist ory of COVID pneumonia, HTN, left ventricular systolic dysfunction (EF 35-40%), and panic disorder who presents to clinic for evaluation of his anxiety.- Reports anxiety is not worsening. Continues to only use Xanax when his heart begins to have palpitations.- Anxiety is worse in crowds now after having COVID.- Reports he has stopped carrying his Xanax around in his pockets.- Reports using maybe one or two tablets every other week.- Seeing Dr. Hadley for cardiology management. Palmer Metzger MD Attn: Accounting,[address] , [place], [address], [place] [facility] 12/14/2020 14:00:57 04/12/2021 text/html 60yo M with LV systolic dysfunction, GERD, steatosis of liver, non-obstructing right kidney stone, and panic disorder presents to clinic for evaluation of RUQ abdominal pain.- Reports pain is like someone stabbing me. Pain is intermittent and irregular. Sometimes it occurs with food and other times it occurs randomly. The pain nearly doubles me over at the worst of times. Pain does not radiate. Pain is not worse at night compared to day.- No specific foods consistently trigger symptoms.- Pain present on-and-off for at least a year and a half since having cholecystecomy in 10/2019.- Reports several ED visits for evaluation of pain, but no problem identified.- Endorses nausea when the pain is the worst.- Takes pantoprazole daily for acid reflux. Reports acid reflux symptoms are controlled with this medication.- Denies recent trauma.- Denies fever, chills, vomiting, chest pain, cardiac palpitations, dyspnea with symptoms. Denies dysuria, hematuria, flank pain, constipation, diarrhea, rash. Hussain Castillo MD Attn: Accounting,[address] , [place], [address], [place] [facility] 04/13/2021 18:54:01 09/20/2021 text/html Patient presents to the clinic today to follow up on left elbow pain that was managed in the ED with antibiotics end of July 2021. Patient reports that he did not finish the course of antibiotics, but that the elbow is now healed and feeling better. Patient also reports chronic stomach pain that he has had every since his cholecystectomy prior to 2019. Patient reports that the pain is in the same location as the gallbladder, but he no longer has a gallbladder. He describes the pain as sharp, with worsened pain after eating, and he feels as if a knife was left inside. Patient relates that he has received XR in the past that have revealed nothing. Patient has been having the pain since the surgery. Patient does relate that icyhot has been able to help the pain in the past. Patient also relates from his history that he has been told he has Rivera's esophagus, but no longer follows with his GI specialist. He is still taking his PPI, but is wanting to be checked to assess any progression of disease. Patient has no other further concerns. PEARL FIELDS DO Attn: Accounting,[address] [facility], [place], [address], [facility] 09/24/2021 13:09:18 03/21/2023 text/html patient complain ing of blockage of his left ear. He says he feels like he has something sloshing in his ear. Has sensorineural hearing loss from years in the . Margo Giles MD [address] [place], [address], [facility] 03/21/2023 15:37:38 Data Portability Created on: June 06, 2024 Nain Schilling .[id number] : 1960 Sex: Male Author Organization [facility] Address [address] [place] [address] Assessment No assessment recorded. Plan of Treatment Reminders Order Date Submit Date Provider Last Modified By Organization Details Last Modified Time Details Appointments None recorded. Lab drug screen, urine 2021 022 [facility], [address], [address], [place], [address], 2 12:07:46 lipase, serum or plasma 2021 JOHANNE GLENN, [address], [address], [place], [address], 2 12:07:49 HBsAg (hepatitis B surface Ag), EIA, serum 2021 [facility]ANNE GLENN, [facility], [address], [place], [address], 2 10:03:42 hepatitis B surface Ab, qualitativ e, serum 2021 JOHANNE ELIZABETH, [address] [place], [place] [address], [address], [place], [address], 2 12:07:48 hepatitis C Ab, signal-to- cutoff, serum or plasma 2021 JOHANNE GLENN, [address] [place], [place] [address], [address], [place], [address], 2 12:07:47 hepatitis A virus Ab, qualitativ e, immunoassa y, serum 2021 JOHANNE GLENN, [facility] [address], [address], [place], [address], 2 12:07:48 ferritin, serum or plasma 2021 JOHANNE ELIZABETH [facility] [address], [address], [place], [address], 2 12:07:49 hepatic function panel, serum 2021 JOHANNE ELIZABETH [facility] [address], [address], [place], [address], 2 12:07:46 drug screen, urine 2020 021 [facility], [address], [address], [place], [address], 1 10:37:30 Referral audiologis t referral 2023 024 [facility] ([facility]), [address] [facility] [address] [address], [place], [address], 4 11:28:12 Procedures None recorded. Surgeries None recorded. Imaging US, abdomen - Ventral hernia present, likely diastasis recti, please assess size and character of hernia 2021 022 [facility]uling, [address] [facility], [place], [address], 2 09:32:04 US, gallbladde r - Hx of chlolestec michell, continued pain. 2021 022 [facility], [address] [facility], [place], [address], 2 15:05:23 US, liver 2021 022 [facility], [address] [facility], [place], [address], 2 15:10:33 US, abdomen, limited - Evaluation of right upper quadrant abdominal pain concern for liver pathology [address] Scheduling, [address] [facility], [place], [address], 2 10:13:13 Medication Orders fluticason e propionate 50 mcg/actuat ion nasal spray,susp ension 2023 024 [id number], [address], [place], [place], [id number], 4 15:40:01 amoxicilli n 875 mg-potassi um clavulanat e 125 mg tablet 2023 024 [facility] #[id number], [address], [place], [place], [id number], 4 15:40:02 alprazolam 0.25 mg tablet 2020 021 [facility], [address] [place] [address], [place], [address], 13:29:07 Patient TargetsNo targets recorded. Patient Instructions Encounter Date Encounter Id Patient Instructions Last Modified By Organization Details Last Modified Time 04/16/2020 [id number] I was present an d available in the Family Medicine clinic to discuss this patient's care during the appointment. I agree with the resident's assessment and plan as documented. Hussain Castillo Not available 04/17/2020 19:08:23 12/14/2020 [id number] A healthy lifestyle: care instructions [email or web address] Not available 12/14/2020 09:39:20 I was present an d available in the Family Medicine clinic to discuss this patient's care during the appointment. I agree with the resident's assessment and plan as documented. [facility] [email or web address] Not available 12/14/2020 14:00:53 04/12/2021 [id number] I was present an d available in the Family Medicine clinic to discuss this patient's care during the appointment. I agree with the resident's assessment and plan as documented. Hussain Castillo Not available 04/13/2021 18:53:56 09/20/2021 [id number] The resident discussed this patient encounter with me face to face. I personally saw and evaluated the patient, personally verifying critical components of the history and exam. I have reviewed and agree with the above documentation and plan of care with the following addendum: NONE. Ordering provider is responsible for all labs, imaging, and consults. -Pearl Fields DO. [email or web address] Not available 09/24/2021 13:09:14 Reason for Referral Inoculator Referral for Sen sorineural hearing loss of bilateral ears Referring Physician: Margo Giles, Otolaryngology, Encounter Date: 03/21/2023 Results Created Date Observation Date Name Description Value Unit Range Abnormal Flag Note LastModifiedBy Organization Detail LastModifiedTime 01/05/20 21 01/08/2021 COMPL IANCE DRUG AXEL SIS, UR summary report (summary) FINAL ===== ===== ===== ===== ===== ===== ===== ===== ===== ===== ===== ===== ===== === TOXAS SURE COMP DRUG AXEL SIS,U R ===== ===== ===== ===== ===== ===== ===== ===== ===== ===== ===== ===== ===== === Test Resul t Flag Units Drug Prese nt Gabap entin PRESE NT Aceta minop hen PRESE NT Lidoc saw PRESE NT Metop rolol PRESE NT ===== ===== ===== ===== ===== ===== ===== ===== ===== ===== ===== ===== ===== === Test Resul t Flag Units Ref Range Creat inine 271 mg/dL >=20 ===== ===== ===== ===== ===== ===== ===== ===== ===== ===== ===== ===== ===== === Decla red Medic ation s: Medic ation list was not provi ded. ===== ===== ===== ===== ===== ===== ===== ===== ===== ===== ===== ===== ===== === For clini kaya consu ltati on, pleas e call [phone]. ===== ===== ===== ===== ===== ===== ===== ===== ===== ===== ===== ===== ===== === Not Available [facility] [address] [facility] [address] [address], [place], [address], 01/08/2021 10:37:30 01/05/20 21 01/08/2021 COMPL IANCE DRUG AXEL SIS, UR pdf . Not Available [facility] [address] [facility] [address], [place], [address], 01/08/2021 10:37:30 04/12/19 22 04/18/2021 COMPL IANCE DRUG AXEL SIS, UR summary report (summary) FINAL ===== ===== ===== ===== ===== ===== ===== ===== ===== ===== ===== ===== ===== === TOXAS SURE COMP DRUG AXEL SIS,U R ===== ===== ===== ===== ===== ===== ===== ===== ===== ===== ===== ===== ===== === Test Resul t Flag Units Drug Prese nt Gabap entin PRESE NT Aceta minop hen PRESE NT Metop rolol PRESE NT ===== ===== ===== ===== ===== ===== ===== ===== ===== ===== ===== ===== ===== === Test Resul t Flag Units Ref Range Creat inine 162 mg/dL >=20 ===== ===== ===== ===== ===== ===== ===== ===== ===== ===== ===== ===== ===== === Decla red Medic ation s: Medic ation list was not provi ded. ===== ===== ===== ===== ===== ===== ===== ===== ===== ===== ===== ===== ===== === For clini kaya consu ltati on, pleas e call . ===== ===== ===== ===== ===== ===== ===== ===== ===== ===== ===== ===== ===== === Not Available [facility] [address] [facility] [address], [place], [address], 04/18/2021 12:07:46 04/12/19 22 04/18/2021 COMPL IANCE DRUG AXEL SIS, UR pdf . Not Available [facility] [address] [facility] [address] [address], [place], [address], 04/18/2021 12:07:46 04/12/19 22 04/13/2021 HEPAT IC FUNCT ION PANEL (7) protein, total 7.0 g/dL 6.0-8. 5 Not Available [facility] ([facility]) [address], [place], [address], 04/18/2021 12:07:46 04/12/19 22 04/13/2021 HEPAT IC FUNCT ION PANEL (7) albumin 4.1 g/dL 3.8-4. 9 Not Available [facility] ([facility]) [address] [facility], [place], [address], 04/18/2021 12:07:46 04/12/19 22 04/13/2021 HEPAT IC FUNCT ION PANEL (7) bilirubin, total 0.5 mg/dL 0.0-1. 2 Not Available [facility] ([facility]) [address] [facility], [place], [address], 04/18/2021 12:07:46 04/12/19 22 04/13/2021 HEPAT IC FUNCT ION PANEL (7) bilirubin, direct 0.15 mg/dL 0.00-0 .40 Not Available [facility] ([facility]) [address] [place], [address], 04/18/2021 12:07:46 04/12/19 22 04/13/2021 HEPAT IC FUNCT ION PANEL (7) alkaline phosphatase 77 IU/L 44-121 Not Available [facility] ([facility]) [address] [place], [address], 04/18/2021 12:07:46 04/12/19 22 04/13/2021 HEPAT IC FUNCT ION PANEL (7) AST (SGOT) 19 IU/L 0-40 Not Available [facility] ([facility]) [address] [place], [address], 04/18/2021 12:07:46 04/12/19 22 04/13/2021 HEPAT IC FUNCT ION PANEL (7) ALT (SGPT) 17 IU/L 0-44 Not Available [facility] ([facility]) [address] [place], [address], 04/18/2021 12:07:46 04/12/19 22 04/13/2021 HEPAT ITIS PANEL (4) hep A Ab, IgM Negati ve negati ve Not Available [facility] ([facility]) [address] [place], [address], 04/18/2021 12:07:47 04/12/19 22 04/13/2021 HEPAT ITIS PANEL (4) HBsAg screen Negati ve negati ve Not Available [facility] ([facility]) [address] [place], [address], 04/18/2021 12:07:47 04/12/19 22 04/13/2021 HEPAT ITIS PANEL (4) hep B core Ab, IgM Negati ve negati ve Not Available [facility] ([facility]) [address] [place], [address], 04/18/2021 12:07:47 04/12/19 22 04/13/2021 HEPAT ITIS PANEL (4) hep C virus Ab <0.1 s/co_ ratio 0.0-0. 9 Negat karley: < 0.8 Indet ermin ate: 0.8 - 0.9 Posit karley: > 0.9 The CDC recom mends that a posit karley HCV antib emiliano resul t be follo wed up with a HCV Nucle ic Acid Ampli ficat ion test (5507 13). Eff ectiv e May 03, 2021 Hepat itis Panel (4) will be made non-o rdera ble. [facility] offer s order code [id number] Acute Hepat itis. Not Available [facility] ([facility]) [address] [facility], [place], [address], 04/18/2021 12:07:47 04/12/19 22 04/13/2021 HCV ANTIB EMILIANO RFX TO QUANT PCR HCV Ab <0.1 s/co_ ratio 0.0-0. 9 Not Available [facility] ([facility]) [address] [place], [address], 04/18/2021 12:07:47 04/12/19 22 04/13/2021 HCV ANTIB EMILIANO RFX TO QUANT PCR interpretati on: Commen t Negat karley Not infec niya with HCV, unles s recen t infec tion is suspe cted or other evide nce exist s to indic ate HCV infec tion. Not Available [facility] ([facility]) [address] [facility], [place], [address], 04/18/2021 12:07:47 04/12/19 22 04/13/2021 HEP B SURFA CE AB hep B surface Ab, qual Reacti ve Non React karley: Incon siste nt with immun ity, less than 10 mIU/m L React karley: Consi stent with immun ity, great er than 9.9 mIU/m L Not Available [facility] ([facility]) [address] [place], [address], 04/18/2021 12:07:48 04/12/19 22 04/13/2021 HAV ANTIB EMILIANO W/ RFX hep A Ab, total Positi ve negati ve abnormal Not Available [facility] ([facility]) [address] [place], [address], 04/18/2021 12:07:48 04/12/19 22 04/13/2021 LIPAS E lipase 41 U/L 13-78 Not Available [facility] ([facility]) [address] [place], [address], 04/18/2021 12:07:49 04/12/19 22 04/13/2021 GARRY TIN ferritin 73 NG/mL 30-400 Not Available [facility] ([facility]) [address] [place], [address], 04/18/2021 12:07:49 04/01/19 21 xr chest Pa+la t [facility] [address] [facility] [place] [address] 2 VIEWS OF THE CHEST Clinic al histor y: Palpit ations Compar harvinder: Novemb er 2019 2 views of the chest demons trate the cardia c silhou ette and medias tinal contou rs to be within normal limits for size appear s stable . Eviden ce of previo us valve replac ement are again noted. The pulmon bladiimr vessel s are normal ly distri buted. The Lungs are clear. No consol idatio ns or effusi ons are seen. IMPRES RANDAL: Stable chest, no acute findin gs. Electr onical ly Signed By: Kian humphreys MD MD on 3:18 PM [email or web address], [place], [address], 04/02/2020 14:22:42 04/01/19 21 ECG 12-le ad [facility] [place], [place] [address] [place] [address]`s [place] [address], [facility] [place] Test Date: 04-01 Pat Name: NAIN SCHILLING Depart ment: Sultana wolfe ID: [id number] Room: [facility] Gender : Male Techni cassandra: ec : [birth year]17 Reques niya By: MARGO Meléndez Order Number : [id number] Yuki man MD: Isreal man Measur ements Interv als [place] Rate: 70 P: 35 FL: 177 QRS: 3 QRSD: 98 T: 31 QT: 388 QTc: 420 Interp retive Statem ents SINUS RHYTHM WITH OCCASI ONAL VENTRI CULAR PREMAT URE COMPLE XES Compar ed to ECG 2019 21:27: 09 Ventri cular premat ure comple x(es) now presen t Electr onical ly signed by Isreal man at 21:28: 28 WELT DRAWER [email or web address], [place], [address], 04/09/2020 22:51:58 04/02/[address] ABD+p el W con [facility] [address] [facility] [place] [address] EXAMIN ATION: CT Abdome n and Pelvis with contra st ACCESS ION: [id number] EXAM DATE/T DAVID: 021 7:44 AM REASON FOR EXAM: 59-yea r-old male. Compla int of right upper quadra nt and epigas tric abdomi nal pain for 2 months COMPAR HARVINDER: CT abdome n pelvis 020 TECHNI QUE: Comput ed tomogr aphy of the abdome n and pelvis was obtain ed after admini strati on of intrav enous contra st. A dose loweri ng techni que was used for this proced ure, which may includ e, but is not limite d to, dose reduct ion techni que, automa niya exposu re contro l, iterat karley recons tructi on, ALARA (As Low As Reason ably Achiev able), or Image Gently techni ques. FINDIN GS: Clear lung bases. Replac ed mitral valve. No perica rdial or pleura l effusi on. Diffus e hepati c steato sis with probab le geogra phic fatty sparin g in the left hepati c lobe. 2 small hepati c presum ed cysts appear stable . No other focal liver findin gs. No interv al cholec ystect wilian. Right upper quadra nt cholec ystect wilian clips. There is a 1.6 x 2.7 x 2.4 cm thin rim-en hancin g fluid collec tion in the gallbl adder surgic al bed possib ly postop erativ e the chroni c collec tion/s eroma. No adjace nt inflam matory change s. No abnorm al biliar y tree dilata tion. The spleen , modera tely atroph ic pancre as and adrena ls are normal . Stable left renal upper pole latera l exophy tic 2.0 cm and interp olar 2.4 cm simple cysts. Stable right renal interp olar 1 cm nonobs tructi ng calcul us. Otherw ise symmet oly normal nephro grams. No hydron ephros is or perine phric strand ing. Comple tely disten ded urinar y bladde r is unrema rkable . Centra l coarse prosta tic calcif icatio n calcif icatio ns noted. No prosta tomega ly. There is no adenop athy, free fluid or free air. Normal append ix. No acute or signif icant gastro intest inal tract findin gs. Mild aortoi liac vascul ar calcif icatio n. No aneury sm. Multil evel minima l degene rative change s in the spine. No concer isabel focal skelet al lesion s. IMPRES RANDAL:= ==== 1. Interv al change s of cholec ystect wilian compar ed with the study from 020 with a 1.6 x 2.7 x 2.4 cm thin rim-en hancin g fluid collec tion in the gallbl adder surgic al bed; differ ential includ es postop erativ e the collec tion/s eroma; no adjace nt strand ing to sugges t infect ion. 2. Near diffus e hepati c steato sis with left hepati c lobe geogra phic focal fatty sparin g. 3. Incide ntal findin g right renal interp olar 1 cm nonobs tructi ng stone in the left renal simple cysts. 4. No signif icant gastro intest inal tract findin gs. 5. Other noneme rgent, incide ntal, stable and potent ial chroni c findin gs as discus sed in the report body above. ====== ====== ====== === Electr onical ly Signed By: Tuan Pedroza MD MD on 021 3:36 PM READY [email or web address] [facility] 1 [facility], [place], [address], 04/09/2020 22:51:58 05/06/[address] ABD+p el W con [facility] [place] [address] EXAMIN ATION: CT ABDOME N AND PELVIS WITH CONTRA ST HISTOR Y: Mid abdomi nal pain worse with eating . COMPAR HARVINDER: CT 021. TECHNI QUE: 3 mm axial images were obtain ed throug h the abdome n and pelvis follow ing the admini strati on of 100 MLS of ISOVUE -[address] throug h an existi ng IV line. Additi onal sagitt al & segovia l recons tructi ons were perfor med. FINDIN GS: ABDOME N: Imagin g of the lung bases demons trates no airspa ce consol idatio n or effusi ons. Liver: Normal in size with fatty infilt ration .. No masses . Small cyst or fluid collec tions adjace nt to the gallbl adder fossa, unchan ged. Spleen : Normal size and CT densit y. Pancre as: Normal size and CT densit y. No duct dilata tion. No masses . Adrena l Glands : Normal in size and CT densit y. No masses . Gallbl adder and bile ducts: Cholec ystect wilian. No duct dilata tion. Kidney s: Normal shape, size and positi on. A 1 cm right renal calyce al stone. Multip le left renal cortic al cysts. No right or left hydron ephros is. Symmet oly perfus ion. No masses . Aorta: Patent . Normal in calibe r. Mild athero sclero tic diseas e. IVC: Patent . Normal in calibe r. GI Tract: No small bowel obstru ction. No intrap eriton eal or retrop eriton eal adenop athy or hemato ma. No ascite s or pneumo perito neum is seen. PELVIS : Colon: Normal in calibe r and appear ance withou t focal inflam matory change s. Append ix: Normal . Urinar y Bladde r: Well disten ded. Prosta te: Not enlarg ed. No pelvic free fluid, hemato ma, mass or adenop athy. BONES: Mild spondy losis. No distin ct destru ctive bony lesion s. IMPRES RANDAL: 1. No acute intra- abdomi nal or pelvic abnorm ality to accoun t for report ed sympto ms. 2. No bowel obstru ction or acute append icitis . 3. Right nephro lithia sis. Multip le left renal cortic al cysts. No acute obstru ctive uropat hy. 4. Diffus e hepati c steato sis.. A radiat ion dose loweri ng techni que was used for this proced ure, which may includ e, but is not limite d to, dose reduct ion techni que, automa niya exposu re contro l, the use of iterat karley recons tructi on, ALARA (As Low As Reason ably Achiev able) techni ques, and Image Gently techni ques. Referr ed By: Maribel onical ly Signed By: Fernando beck MD on 10:35 PM Interp reted By: Fernando beck MD, 10:30 PM Labs, iv [email or web address] [facility] 1 [facility], [place], [address], 05/06/2020 18:59:21 09/17/19 21 XR, chest [facility] [place] [address] Date: 8:08 PM Exam: XR CHEST PORTAB LE Compar harvinder: Chest radiog rula dated , 2019. Techni que: Single view chest. Histor y: Shaky. Chest pain. Shortn ess of breath while workin g out doors. Findin gs: The cardia c silhou ette is mildly enlarg ed. There is valve replac ement. There is a heart monito r projec ting over the midlin e chest. The pulmon bladimir vascul arity is within normal limits . There are no consol idatio ns nor pleura l effusi ons. There is no pneumo thorax . The osseou s struct ures are normal . Impres randal: Mild cardio megaly , but no acute cardio pulmon bladimir diseas e proces s. Referr ed By: DIANA Chance Electr onical ly Signed By: Zhou meléndez Jr, MD on 8:20 PM Interp reted By: Zhou meléndez Jr, MD, 8:19 PM [email or web address], [place], [address], 09/17/2020 10:24:45 09/17/19 21 ECG 12-le ad [facility] [place] [address] [facility] [place] [address] [place], [place] Test Date: 09-16 Pat Name: NAIN Caro ment: Sultana wolfe ID: [id number] Room: [facility] Gender : Male Techni cassandra: : [birth year] Reques niya By: DIANA Chance Order Number : [id number] Yuki man MD: Isreal man Measur ements Interv als [place] Rate: 64 P: 39 FL: 168 QRS: 16 QRSD: 89 T: 47 QT: 399 QTc: 413 Interp retive Statem ents SINUS RHYTHM Compar ed to ECG 2020 14:44: 18 Ventri cular premat ure comple x(es) no longer presen t Electr onical ly signed by Isreal man at 21:56: 26 [email or web address], [place], [address], 09/17/2020 10:24:45 10/20/19 21 XR, chest [facility] [place] [place] [address] , 9:23 AM. HISTOR Y: Chest pain. Short of breath . EXAM: Erect portab le AP chest. Correl ation to study . FINDIN GS: Prior cardia c valve surger y. The heart size is within normal limits . No pulmon bladimir vascul ar conges tion. No pleura l effusi on. The lungs appear clear of active infilt rates. No pneumo thorax . The latera l margin s of both lung bases are not includ ed on the study. IMPRES RANDAL: No active cardio pulmon bladimir diseas e. Referr ed By: MARIO LOZANO ON Electr onical ly Signed By: Zak Morales MD on 9:56 AM Interp reted By: Zak Morales MD, 9:55 AM [email or web address], [place], [address], 10/19/2020 21:38:27 10/20/19 21 ECG 12-le ad [facility] ONE [facility] [place] [address] [facility] [place] [address] [place], [facility] [place] Test Date: 10-19 Pat Name: NAIN SCHILLING Depart ment: Sultana wolfe ID: [id number] Room: [facility] Gender : Male Techni cassandra: AW : [birth year]17 Reques niya By: RAMIREZ TREJO Order Number : [id number] Yuki man MD: Angelic Kemp Measur ements Interv als [place] Rate: 59 P: 41 FL: 178 QRS: 6 QRSD: 99 T: 30 QT: 412 QTc: 411 Interp retive Statem ents SINUS BRADYC ARDIA Non-sp ecific ST-T wave abnorm alitie s Electr onical ly signed by Angelic Kemp at 11:35: 59 [email or web address], [place], [address], 10/19/2020 21:38:27 10/20/19 21 ECG 12-le ad [facility] ONE [facility] [place] [address] [facility] [place] [address] [place], [place] Test Date: 10-19 Pat Name: NAIN Caro ment: Sultana wolfe ID: [id number] Room: EXAM08 Gender : Male Techni cassandra: ATS : 06-17 Reques niya By: RAMIREZ S NEIL Order Number : [id number] Yuki man MD: Angelic Kemp Measur ements Interv als [place] Rate: 59 P: 38 FL: 180 QRS: -1 QRSD: 95 T: 18 QT: 407 QTc: 403 Interp retive Statem ents SINUS BRADYC ARDIA Non-sp ecific ST-T wave abnorm alitie s Electr onical ly signed by Angelic Kemp at 15:38: [email or web address] [facility] 1 [facility], [place], [address], 10/19/2020 21:38:28 10/21/19 21 use echoc ardio gram W con [facility] [place] [address] Echoca rdiogr aphy Report Pat.Na me: NAIN SCHILILNG Bruno Pat.ID : [id number] .Leighton e: Exam Time: 10:37: 00 AM Study Type:E CHO WITH CARDIA C DOPPLE R COMP Height : 73in Weight : 221.54 lb BSA: 2.25 m2 Age: [birth year]60 Y Sex: MALE BP: 123/94 HR: 74 bpm Sonogr phr: Pace , Dinah RDCS Pat. Stat.: Inpati ent Room: ER 08 Reason for Study: Chest pain Histor y / Clinic al:Fam althea histor y CAD, Ex-Smo ker, Renal Insuff icienc y Proced ures: 2D, M-mode , Dopple r, Color Flow, Defini ty was used to enhanc e endoca rdial defini tion., The study qualit y is techni saira marcus. Race: W ++++++ ++++++ ++++++ ++++++ ++++++ ++++++ SUMMAR Y: ++++++ ++++++ ++++++ ++++++ ++++++ ++++++ The left ventri cular size is normal . Estima niya left ventri cular ejecti on fracti on is 35-40% . Left ventri cular diasto lic functi on is abnorm al. A-Mild global hypoki nesis is noted. The right ventri cular size is mildly enlarg ed. Right ventri cular systol ic functi on is mildly depres sed. The left atrial size is normal . Right atrial size is mildly enlarg ed. No eviden ce of aortic valve stenos is. No eviden ce of aortic regurg itatio n. Trace mitral regurg itatio n. Mitral valve repair . No eviden ce of mitral valve stenos is. Mild pulmon ic regurg itatio n. Mild tricus pid regurg itatio n. Right ventri cular systol ic pressu re is below 35 mmHg. ++++++ ++++++ ++++++ ++++++ ++++++ ++++++ FINDIN GS: ++++++ ++++++ ++++++ ++++++ ++++++ ++++++ LV: The left ventri cular size is normal . Estima niya left ventri cular ejecti on fracti on is 35-40% . No concen tric left ventri cular hypert rophy. Left ventri cular diasto lic functi on is abnorm al. WM: Mild global hypoki nesis is noted. RV: The right ventri cular size is mildly enlarg ed. Right ventri cular systol ic functi on is mildly depres sed. IVS: No eviden ce of ventri cular septal defect . LA: The left atrial size is normal . RA: Right atrial size is mildly enlarg ed. IAS: Atrial septum appear s intact . SERGEI: No eviden ce of perica rdial effusi on. AO: Normal aortic root. PA: Pulmon bladimir artery not well visual ized. SVn: Inferi or vena cava is normal . System ic veins not well visual ized. AV: The aortic valve is trilea flet. No eviden ce of aortic valve stenos is. No eviden ce of aortic regurg itatio n. MV: Trace mitral regurg itatio n. No eviden ce of mitral valve stenos is. PV: No eviden ce of pulmon ic valve stenos is. Mild pulmon ic regurg itatio n. TV: Mild tricus pid regurg itatio n. Right ventri cular systol ic pressu re is below 35 mmHg. No eviden ce of tricus pid valve stenos is. ++++++ ++++++ ++++++ ++++++ ++++++ ++++++ MEASUR EMENTS : ++++++ ++++++ ++++++ ++++++ ++++++ ++++++ DOPPLE R LVOT LVOTpk PG 2 mmHg LVOTmn PG 1 mmHg LVOTpk Aleksander 74.6 cm/s (70-11 0)+ LVOT SV 52 ml LVOT TVI 12.5 cm Pulmon bladimir Veins PVnpkV eld 36.8 cm/s PVnVs/ Vd 1.3 PVnpkV els 48.7 cm/s PVn A Dur 113 ms AV Forwar d Flow AV TVI 14.7 cm AV pkPG 3 mmHg AV pkVel 89.5 cm/s (100-1 70)+* Area (TVI) 3.53 cm2 (3-5) AV mnPG 2 mmHg Area (Aleksander) 3.46 cm2 (3-5) MV Forwar d Flow MV DeTm 197 ms MV pkE 64.1 cm/s (60-13 0) MV E/A 0.8 MV pkA 84.8 cm/s PV Forwar d Flow PV pkVel 87.8 cm/s (60-90 )+ PV AC 111 ms PV pkPG 3 mmHg PV Regurg Flow PV pkVel 112 cm/s TV Regurg Flow TV pkPG 19 mmHg TV pkVel 220 cm/s (30-70 )* Lat E' Lat e 8.61 cm/s Lat E/E' Lat E/e 7.4 Med E' Med e 6.77 cm/s Med E/E' Med E/e 9.5 Aortic Valve Aortic Valve Ar 1.57 Aortic Valve Ve 0.83 PV Antegr wolf Flow Accele ration Sl 417 cm/s2 PV Regurg itant Flow Peak Gradie nt ( 5 mmHg Right Ventri lakisha Right Ventri lakisha 8.8 cm/s 2D Left Ventri lakisha LVIDd 5.45 cm (3.6-5 .2)* LV ESV 53.9 ml LVIDs 3.96 cm (2.3-3 .9)* LV ESV 49.2 ml LngAxd 8.13 cm LVESV BP 51.9 ml LngAxd 7.96 cm LV EF 41.9 % LV EDV 92.7 ml LV EF 39.8 % LV EDV 81.7 ml LV EF BP 41 % LVEDV BP 87.9 ml LV SV 38.8 ml LngAxs 7.25 cm LV SV 32.5 ml LngAxs 7.41 cm LV SV BP 36 ml LVPW LVPWd 1.01 cm Right Ventri lakisha RVIDd 3.52 cm (2.6-4 .3) Right and Left 0.646 Ventri cular Septum IVSd 1.07 cm Left Atrium LA VOLBP 49.9 ml Aorta Ao Rtd 4.2 cm LVOT LVOT 2.3 cm LVOTAr ea 4.15 cm2 Ratios IVS LA Biplan e LAVol I BP 22.2 ml/m2 MMODE Ratios LA/Ao 1.33 (0.87- 1.1)* Aorta Ao Rt 3.6 cm (2-3.7 ) Left Atrium LAIDs 4.8 cm TA Tricus pid Annul 17.3 mm Signed 2020 12:47 PM Lion Perez M.D. [email or web address] [facility] 1 [facility], [place], [address], 10/20/2020 17:20:22 11/22/19 21 XR, chest [facility] [place] [place] [address] EXAMIN ATION: CHEST X-RAY ONE VIEW EXAM TIME: 1906 hours. COMPAR HARVINDER: 021. HISTOR Y: Right- sided chest pain. FINDIN GS: A single portab le AP view of the chest is submit niya for evalua tion. The heart is within normal limits in size. Pulmon bladimir vascul arity is within normal limits . The lungs are well expand ed withou t focal airspa ce consol idatio n. No pleura l effusi ons. No pneumo thorax . IMPRES RANDAL: No acute cardio pulmon bladimir proces s. Referr ed By: Maribel onical ly Signed By: Fernando beck MD on 7:11 PM Interp reted By: Fernando beck MD, 7:[email or web address] [facility] 1 [facility], [place], [address], 11/23/2020 11:54:33 11/22/19 21 cta chest [facility] ONE [facility] [address] EXAMIN ATION: CTA CHEST WITH CONTRA ST (PE PROTOC OL) HISTOR Y: Dyspne a, cough and right- sided chest pain, evalua te for possib le pulmon bladimir embolu s. Covid positi ve. COMPAR HARVINDER: None Availa ble. TECHNI QUE: 3 mm axial images were obtain ed throug h the chest follow ing the bolus admini strati on of 80 MLS of Isovue -[address] throug h an existi ng IV line with additi onal segovia l recons tructi ons. Maximu m intens ity projec tion (MIP) images are genera niya and review ed. FINDIN GS: Heart: Normal size. No perica rdial effusi on or thicke isabel. No medias tinal or axilla ry adenop athy. Aorta: Patent . Normal in calibe r. Pulmon bladimir Arteri es: There is diagno stic opacif icatio n of the pulmon bladimir arteri es. Patent . Normal in calibe r. No intral uminal fillin g defect s to sugges t pulmon bladimir emboli . Trache a & Bronch i: No lumina l lesion s or extrin sic compre ssion. Esopha jaki: Normal in appear ance. Lungs: Focal bilate ral pulmon bladimir opacit ies. No pleura l effusi ons or pneumo thorax . Upper abdome n: Diffus e fatty infilt ration of the liver. Nonobs tructi ng right renal calyce al stone. Multip le left renal cortic al cysts. IMPRES RANDAL: 1. No eviden ce of pulmon bladimir thromb oembol ism. 2. Multif ocal bilate ral pulmon bladimir opacit ies sugges ting infilt rates and pneumo simone. A radiat ion dose loweri ng techni que was used for this proced ure, which may includ e, but is not limite d to, dose reduct ion techni que, automa niya exposu re contro l, the use of iterat karley recons tructi on, ALARA (As Low As Reason ably Achiev able) techni ques, and Image Gently techni ques. Referr ed By: Electr onical ly Signed By: Fernando beck MD on 8:52 PM Interp reted By: Fernando beck MD, 8:49 PM No labs [email or web address] [facility] 1 [facility], [place], [address], 11/23/2020 11:54:33 11/23/19 21 ECG 12-le ad [facility] ONE [facility] [address] [facility] [place] [address] [place] Test Date: 2020-02 Pat Name: NAIN SCHILLING Depart ment: Sultana t ID: [id number] Room: Gender : Male Techni cassandra: : [birth year]17 Reques niya By: JOEY CASTAÑEDA Order Number : [id number] Yuki man MD: Moody Dallas Measur ements Interv als [place] Rate: 87 P: 41 FL: 140 QRS: 4 QRSD: 94 T: -20 QT: 346 QTc: 416 Interp retive Statem ents SINUS RHYTHM MINIMA L ST DEPRES RANDAL Compar ed to ECG 2020 13:14: 47 Sinus bradyc ardia no longer presen t ST (T wave) deviat ion still presen t Other ischem ic change s, not STEMI Yehuda Bennett M.D. CRITIC AL ALERT ISSUED ON 18:57: 54 Electr onical ly signed by Moody Dallas at 7:11:[email or web address] [facility] 1 [facility], [place], [address], 11/23/2020 11:54:34 11/23/19 21 ECG 12-le ad [facility] ONE [facility] [place] [address] [facility] [place] [address] [place] [place] Test Date: 2020-02 Pat Name: NAIN SCHILLING Depart ment: Sultana wolfe ID: [id number] Room: [place] [address] Gender : Male Techni cassandra: MJ : 4- Reques niya By: DIANA Chance Order Number : [id number] Yuki man MD: Moody Dallas Measur ements Interv als [place] Rate: 91 P: 20 FL: 117 QRS: 16 QRSD: 91 T: -4 QT: 360 QTc: 445 Interp retive Statem ents SINUS RHYTHM WITH SHORT FL INTERV AL NONSPE CIFIC ST & T-WAVE ABNORM ALITY CRITIC AL ALERT ISSUED ON 20:24: 31 Compar ed to ECG 2020 18:53: 25 Short FL interv al now presen t T-wave abnorm ality now presen t ST (T wave) deviat ion no longer presen t Electr onical ly signed by Moody Dallas at 7:13:[email or web address] [facility] 1 [facility], [place], [address], 11/23/2020 11:54:34 11/28/19 21 XR, chest [facility] ONE [facility] [address] Proced ure(s) : XR CHEST PORTAB LE Date of servic e: 11:18 AM Provid ed clinic al inform ation: 60 years, Male, covid pneumo simone Proced ure and materi als: AP portab le Compar harvinder studie s: Octobe r 2, 2020 Observ ations : Patien t is post valvul ar replac ement. Cardia c silhou ette is not enlarg ed. Diffus e opacif icatio ns are presen t involv ing the right lung latera lly and diffus betzaida within the left lung. The findin gs in the left lower lung appear to be improv ing if any change , while the right lung findin gs are increa sing. IMPRES RANDAL: Bilate ral pulmon bladimir opacif icatio ns are presen t. Left lung findin gs are slight ly improv ing if any change . Right lung findin gs are worsen ing. Referr ed By: Maribel onical ly Signed By: Albert delgado MD on 11:29 AM Interp reted By: Albert delgado MD, 11:[email or web address] [facility] 1 [facility], [place], [address], 11/27/2020 12:42:57 01/25/20 21 XR, chest [facility] ONE [facility] [address] Examin ation: Chest Radiog raph, 1 view Access ion: [id number] Exam Date/T david: 8:30 AM Reason For Exam: cough, chest pain Sinus draina ge and conges tion. Compar harvinder: chest radiog raph Techni que: Single AP view of the chest. Findin gs: No large pleura l effusi on or pneumo thorax . Heart size within normal limits for AP techni que. Pulmon bladimir vascul arity within normal limits . Previo usly seen periph eral opacit ies on prior exam have resolv ed. No new infilt rates or consol idativ e change s. ====== == IMPRES RANDAL: ====== == 1. Interv al resolu tion of previo usly seen pulmon bladimir opacit ies with no new acute cardio pulmon bladimir findin gs ====== ====== ====== ====== ==== Referr ed By: Maribel monique ly Signed By: Ramirez cifuentes MD on 8:33 AM Interp reted By: Ramirez cifuentes MD, 8:[email or web address] [facility] 1 [facility], [place], [address], 01/25/2021 12:20:27 01/25/20 21 ECG 12-le ad [facility] [address] [facility] [place] [address] [facility] [place], [place] Test Date: 2020-02 Pat Name: NAIN SCHILLING Depart ment: Sultana wolfe ID: [id number] Room: [facility]OLFO Gender : Male Techni cassandra: SK : [birth year]17 Reques niya By: ADRIAN JUNG Order Number : [id number] Yuki man MD: Ti Hicks Measur ements Interv als [place] Rate: 69 P: 49 FL: 172 QRS: 21 QRSD: 94 T: 49 QT: 390 QTc: 420 Interp retive Statem ents SINUS RHYTHM WITH OCCASI ONAL VENTRI CULAR PREMAT URE COMPLE XES Compar ed to ECG 2020 20:16: 57 Ventri cular premat ure comple x(es) now presen t Short FL interv al no longer presen t T-wave abnorm ality no longer presen t Prelim inary EKG interp retati on by ED Physic bushra Other ischem ic change s, not STEMI Adrian Jung MD CRITIC AL ALERT ISSUED ON 7:45:3 0 Electr onical ly signed by Ti Hicks at 11:01: [email or web address] [facility] 1 [facility], [place], [address], 01/25/2021 12:20:27 03/30/19 22 xr chest Pa+la t [facility] ONE [facility] [place] [address] EXAMIN ATION: PA AND LATERA L CHEST Access ion: [id number] Exam date/t david: 03/30/19 9:46 AM Reason For Exam: epigas tric pain Compar harvinder: Techni que: 2 views. Findin gs: Heart size normal . Prior mitral valve replac ement. No acute findin gs in the lungs. No pneumo thorax or pleura l effusi on. ===== IMPRES RANDAL:= ==== No acute findin gs. Stable prior mitral valve replac ement. Referr ed By: Electr onical ly Signed By: Chaitanya Granado MD on 03/30/19 9:53 AM Interp reted By: Chaitanya Granado MD, 03/30/19 9:[email or web address] [facility] 1 [facility], [place], [address], 04/05/2021 09:08:52 03/30/19 22 ECG 12-le ad [facility] ONE [facility] [place] [address] [facility] [place] [address] [place], [place] Test Date: 03-30 Pat Name: NAIN SCHILLING Depart ment: Sultana wolfe ID: [id number] Room: [facility] Gender : Male Techni cassandra: RH : [birth year] Reques niya By: YULI POE Order Number : [id number] Yuki man MD: Lion Perez Measur ements Interv als [place] Rate: 65 P: 29 FL: 178 QRS: 7 QRSD: 98 T: 31 QT: 386 QTc: 401 Interp retive Statem ents SINUS RHYTHM Compar ed to ECG 2020 07:36: 37 Ventri cular premat ure comple x(es) no longer presen t Electr onical ly signed by Lion Perez at 03-30-19 19:37: 51 WELT DRAWER [email or web address] [facility] 1 [facility], [place], [address], 04/05/2021 10:02:05 05/28/19 22 xr chest Pa+la t [facility] [address] PROCED URE: XR CHEST PA+LAT . 05/28/19 12:45 PM. TECHNI QUE: 2 views (PA and Latera l) of the chest were perfor med. HISTOR Y: Shortn ess of breath . COMPAR HARVINDER: PA and latera l chest radiog raph, 08/28/19. CONTRERAS GS: Suppor t Device s: None. Cardia c Silhou ette/M ediast inum/H keira: The cardia c, medias tinal, and hilar contou rs are within normal limits for age. Mitral valve annulo
--- NOTE | 2024-06-07 10:36 | PC.NURSE ---
pt was aware he needed to give a UA sample, at 0915 pt said he did not feel the urge to go but was given a urinal just incase. pt was then taken around 09 to get his ultrasound done and CT, this is the reason the UA was delayed in obtaining
[2024-06-07 10:57] LABS: Add Urine Microscopic? NO; Appearance Urine Clear (Clear); Bilirubin Urine Negative (Negative); Blood Urine Negative (Negative); Color Urine Yellow (Yellow); Glucose Urine UA 3+ mg/dL (Negative); Ketones Urine Trace mg/dL (Negative); Leukocyte Esterase Ur Negative LEU/UL (Negative); Nitrate Urine Negative (Negative); Protein Urine Negative (Negative); Specific Grav Ur 1.044 (1.001-1.035); pH Urine 5.5 (5.0-9.0)
[2024-06-07] MEDS: KETOROLAC 30 MG/ML VIAL (*BKC) IV PUSH (12:39)
[2024-06-07] MEDS: SODIUM CHLORIDE 0.9% IV 1,000 ML 999 ML IV CONT (12:40)
== END 2024-06-07 14:09 | disposition home or self-care (01) ==
PROVIDERS: Emergency Provider Physician Assistant; PCP Family Medicine
DX: N43.3 Hydrocele, unspecified (principal); N20.0 Calculus of kidney; R10.9 Unspecified abdominal pain; I10 Essential (primary) hypertension; I48.91 Unspecified atrial fibrillation; I89.0 Lymphedema, not elsewhere classified; K22.70 Barrett's esophagus without dysplasia; K21.9 Gastro-esophageal reflux disease without esophagitis; F41.9 Anxiety disorder, unspecified; N28.9 Disorder of kidney and ureter, unspecified; Z86.718 Personal history of other venous thrombosis and embolism; Z87.891 Personal history of nicotine dependence; K76.0 Fatty (change of) liver, not elsewhere classified
CPT/HCPCS: 36415; 74177; 76870; 80053; 81003; 83605; 83690; 85025; 93976; 96361; 96374; 96375; 96376; 99284; J1171; J1885; J2405; J7030; Q9967